=== PATIENT | male | born 1940 | race Caucasian/White ===

== ENCOUNTER 2019-10-19 00:32 | Outpatient (CLI) | payer MEDICARE, SELFPAY ==
[2019-10-19 18:00] LABS: SARS-CoV-2 RNA PCR Negative
== END 2019-10-19 00:33 | disposition home or self-care (01) ==
LOC: ANHCOVIDDT 00:32
PROVIDERS: PCP Emergency Medicine; Visit Provider Internal Medicine Cardiovascular Disease
DX: Z01.818 Encounter for other preprocedural examination (principal); Z11.59 Encounter for screening for other viral diseases
CPT/HCPCS: 87635; C9803; U0003

== ENCOUNTER 2019-10-22 05:07 | Day surgery (SDC) | payer MEDICARE, SELFPAY ==
[2019-10-18 12:35] VITALS: BMI 22.3
[2019-10-22 09:04] VITALS: BP 184/89; PULSE 56; RESP 14; TEMP 36.6; O2SAT 100; BMI 22.1
--- NOTE | 2019-10-22 09:12 | WPDHPUPDATE1 ---
History and Physical Update Update Date/Time: 10/22/19 09:12 History and Physical has been reviewed, including an updated exam of the patient. There are NO changes in the patient's condition. t says he had N&V after shoulder surgery 2nd the anesthetic, but is not allergic to novocaine or lidocaine that he is aware of. Risks, benefits, and alternatives have been discussed and questions answered. Patient agrees to proceed with procedure.
--- NOTE | 2019-10-22 09:13 | WPDMODSED ---
Moderate Sedation Note-Pt Data Patient Data Diagnosis: Recurrent near syncope Present Complaint: 79-year-old male with paros. atrial fibrillation, mild aortic stenosis, and recurrent near-syncope. Thirty day monitor was unrevealing but he had no symptoms during that time. I recommended the implantation of the loop recorder because of a high suspicion of Dejuan arrhythmias. Procedure to be performed/Plan: Insertion of a Biotronik loop recorder with local anesthesia. Allergies Allergy/AdvReac Type Severity Reaction Status Date / Time Anesthetics - Jeannie Type- Allergy Unknown Verified 10/18/19 11:41 Parabens prochlorperazine Allergy Nausea and Verified 10/18/19 11:41 Vomiting Home Medications Medication Instructions Recorded Confirmed Type hydrochlorothiazide 12.5 mg tablet 12.5 mg PO DAILY 06/10/19 10/18/19 History losartan 100 mg tablet 100 mg PO DAILY 06/10/19 10/18/19 History pravastatin 40 mg tablet 40 mg PO DAILY 06/10/19 10/18/19 History vit C 250 mg-E 200 unit-zinc 40 2 tablet PO BID 06/10/19 10/18/19 History mg-copper 1 tb-chdyzq-ujktih capsule warfarin 5 mg tablet 5 mg PO DIRECTED 06/10/19 10/18/19 History omeprazole 20 mg PO DAILY 10/18/19 10/18/19 History Sedation/Anesthesia: No previous sedation/anesthesia problems (including family history). [facility] Past Medical History Medical History Afib HLD (hyperlipidemia) Family History Family History Father Family history of cardiovascular disease, Onset Age: 73 Cerebrovascular accident, Onset Age: 73 Mother Family history of malignant neoplasm, Onset Age: 62 Social History Social History Smoking status: Former smoker Alcohol intake: never Gender identity (if verbalized by the patient): Male Mod Sed Physical Exam Physical Exam Pre Procedural Exam: Normal: Appearance, Eyes, Ears, Nose, Neck, Throat, Airway (mssing teeth), Lungs, Heart Size, Heart Rate (2/6 JOSE RAFAEL), Heart Rhythm, Neuro Exam, Abdomen, Liver and Skin Hours since solid foods: 12 Hours since liquid intake: 12 Internal Medicine - PN: Obj Da Vital Signs Vital Signs: Vital Signs - 24 hr 10/22/19 09:04 Temperature 97.9 F Pulse Rate 56 L Respiratory Rate 14 Blood Pressure 184/89 H Pulse Oximetry 100 ASA Classification/Sedation ASA Classification/Sedation ASA Class: II Risks: Risks, benefits and alternatives explained and patient/family accepted plan for sedation. Patient re-evaluated immediately prior to sedation.
--- NOTE | 2019-10-22 10:41 | ECG_ITS ---
Measurements Intervals [place] Rate: 60 P: 78 PA: 166 QRS: 30 QRSD: 101 T: 11 QT: 410 QTc: 411 Interpretive Statements SINUS RHYTHM ST ELEVATION IN DIFFUSE LEADS, PROBABLY EARLY REPOLARIZATION BASELINE ARTIFACT- II, III BORDERLINE ECG Electronically Signed On 10-22-2019 10:52:41 CDT by Rob Valencia D.O.
[2019-10-22 11:45] VITALS: BP 172/82; PULSE 56; RESP 16; O2SAT 100
--- NOTE | 2019-10-22 12:57 | PM.PROC ---
Procedure Note - Detailed Date of procedure: 10/22/19 Pre-op diagnosis: recurrent pre syncope Post-op diagnosis: same Procedure performed: Implantation of a Biotronik loop recorder Description of procedure: After informed consent, the patient had sterile prep and drape of the left pectoral area. Anesthesia with 1% lidocaine was applied. The Biotronik loop recorder was implanted along the left parasternal border without difficulty. The R-wave sensing was good at 1.54 mV. The skin was closed using skin adhesive. He tolerated the procedure well with no complications. Implants: Biotronik Biomonitor III loop recorder, serial number [id number] , left parasternal area. Anesthesia: local Surgeon: Mona Arndt MD Estimated blood loss (mL): 1 Drains: No Packing: No Pathology: none sent Complications: No immediate complications Condition: stable Disposition: same day Findings: Patient was in NSR today.
== END 2019-10-22 11:40 | disposition home or self-care (01) ==
PROVIDERS: PCP Emergency Medicine; Visit Provider Internal Medicine Cardiovascular Disease
PROC: (CPT 33285; principal; 2019-10-22 09:30)
DX: R55 Syncope and collapse (principal); I48.91 Unspecified atrial fibrillation; E78.5 Hyperlipidemia, unspecified; Z79.01 Long term (current) use of anticoagulants; Z87.891 Personal history of nicotine dependence
CPT/HCPCS: 33285; 93005; C1764

== ENCOUNTER 2020-02-07 13:29 | Outpatient (CLI) | payer MEDICARE, SELFPAY ==
--- NOTE | ~2020-02-07 | MR_ITS ---
EXAMINATION: MR shoulder RT wo con DATE: 02/07/2020 15:06 INDICATION: Scapula alata with posterior right shoulder pain and limited range of motion TECHNIQUE: Magnetic resonance imaging (MRI) of the right shoulder was performed without intravenous c ontrast. Sequences included axial PD-weighted FS FSE, coronal oblique PD-weighted FS FSE, coronal obl ique T2-weighted FS FSE, sagittal PD-weighted FS FSE, and sagittal T1-weighted SE. COMPARISON: Right shoulder radiographs dated 12/20/2019 FINDINGS: Coracoacromial arch: Interval postoperative changes of acromioplasty and distal right clavicle excision with scattered foc i of susceptibility artifact along the anterior margin of the acromion. Rotator cuff: Moderate supraspinatus and infraspinatus tendinopathy without discrete tear. The teres minor tendon i s normal. Partial-thickness articular sided tear of the subscapularis tendon involving the cephalad t wo thirds of the lesser tuberosity footplate. The bursal sided fibers remain intact and contiguous wi th the transverse humeral ligament. There appears be a near full-thickness tear involving the cephala d two thirds of the lesser tuberosity footplate of the subscapularis tendon. The bursal most fibers o f the tendon remain intact and contiguous with the transverse humeral ligament. This is likely chroni c in the severe atrophy of the subscapularis muscle belly which spares the caudal most portion of the muscle attaching directly to the inferior aspect of the lesser tuberosity. Also consistent with runner out mony tear is hypertrophic osteophyte formation along the tear defect at the lesser tuberosity. Remaini ng rotator cuff musculature is normal. Biceps tendon, glenoid labrum and glenohumeral cartilage: The long head of the biceps tendon can be followed to the cephalad aspect of the intertubercular groo ve with intra-articular portion of the tendon is absent consistent with provided surgical history of prior bicipital tenodesis. There is a tear of the 12:00 through 10:00 position of the posterior super ior glenoid labrum. There is additional tear along the inferior glenoid labrum. Partial-thickness car tilage loss with mild chondral surface regularity along the cephalad third of the glenoid and at the anterosuperior medial aspect of the humeral head. Fluid: Physiologic amount of fluid in the glenohumeral joint and biceps tendon sheath. No loose osteochondra l bodies. Trace amount of fluid in the subacromial/subdeltoid bursa consistent with normal bursitis. Bones/other: No fracture or pathologic marrow replacing process. Mild cystic change at the greater tuberosity like ly related to chronic rotator cuff disease. There is severe muscular atrophy of the teres major muscl e belly. There is also a focal small region of muscular atrophy of a portion of the trapezius muscle belly which extends towards the region of the acromion and resected portion of the clavicle which may represent sequela of prior acromioplasty and distal clavicle resection. No evident fatty atrophy of the visualized portions of the rhomboideus, levator scapulae and serratus anterior muscles. IMPRESSION: 1. Likely chronic near full-thickness tear involving the entire cephalad two thirds of the lesser tub erosity footplate of the subscapularis tendon with severe fatty atrophy of the subscapularis possibly excepting the portion with the direct muscular attachment to the inferior lesser tuberosity. 2. Moderate supraspinatus and infraspinatus tendinopathy without discrete tear. 3. 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 4. Postoperative change of prior acromioplasty, distal clavicle excision and long head bicipital teno desis. 5. Severe fatty atrophy of the teres major muscle belly of indeterminate etiology and focal fatty atr ophy of a small portion of the trapezius muscle extending towards the acromion and r
== END 2020-02-07 13:30 | disposition home or self-care (01) ==
PROVIDERS: PCP Emergency Medicine; Visit Provider Orthopaedic Surgery
DX: M95.8 Other specified acquired deformities of musculoskeletal system (principal); M19.011 Primary osteoarthritis, right shoulder
CPT/HCPCS: 73221

== ENCOUNTER 2021-02-13 18:04 | Emergency (ER) | payer MEDICARE, SELFPAY ==
[2021-02-13 18:22] VITALS: BP 118/90; PULSE 75; RESP 18; TEMP 36.3; O2SAT 98
--- NOTE | 2021-02-13 20:51 | ED.LOWEXIN ---
HPI - Extremity Injury (Lower) General Chief Complaint: Extremity Injury, Lower Stated Complaint: ankle swollen and pain Time Seen by Provider: 02/13/21 20:48 Source: patient Mode of arrival: wheelchair Limitations: no limitations History of Present Illness HPI Narrative: Patient is a 80-year-old male complaining of bilateral ankle and foot pain, chronic, but worse the past week, rates the pain as a 9 out of 10 aching worse with walking and movement. 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 Patient states that he just needs something for pain until he sees his area attendant on Monday where he usually gets injections in both of his ankles. Patient states that he tried to get in earlier but could not. Related Data Home Medications Medication Instructions Recorded Confirmed hydrochlorothiazide 12.5 mg tablet 12.5 mg PO DAILY 06/10/19 04/07/20 losartan 100 mg tablet 100 mg PO DAILY 06/10/19 04/07/20 pravastatin 40 mg tablet 40 mg PO DAILY 06/10/19 04/07/20 vit C 250 mg-vit E 90 mg-zinc 40 2 tablet PO BID 06/10/19 04/07/20 mg-copper 1 ui-pyurbd-oszzri capsule omeprazole 20 mg PO DAILY 10/18/19 04/07/20 Allergies Allergy/AdvReac Type Severity Reaction Status Date / Time Anesthetics - Jeannie Type- Allergy Unknown Verified 02/13/21 21:15 Parabens prochlorperazine AdvReac Nausea and Verified 02/13/21 21:15 Vomiting Review of Systems Review of Systems: All systems reviewed & are unremarkable except as noted in HPI and below PMFSH Past Medical History Medical History Afib Calf tenderness Cellulitis HLD (hyperlipidemia) Leg wound, left Surgical History Surgical History History of cardiac radiofrequency ablation History of repair of right rotator cuff (~11/30/09) Family History Family History Father Family history of cardiovascular disease, Onset Age: 73 Cerebrovascular accident, Onset Age: 73 Mother Family history of malignant neoplasm, Onset Age: 62 Social History Social History Smoking status: Former smoker Alcohol intake: never Gender identity (if verbalized by the patient): Male Exam Const: General: no acute distress and alert HENMT: Head: normal to inspection Eyes: Conjunctivae: conjunctivae normal Neck: Neck: normal visual inspection Resp: Effort & Inspection: normal respiratory effort Extrem: General: edema (Bilateral lower extremity, pitting edema) Course Vital Signs Vital signs: Vital Signs Temperature 36.3 C L 02/13/21 18:22 Pulse Rate 75 02/13/21 18:22 Respiratory Rate 18 02/13/21 18:22 Blood Pressure 118/90 02/13/21 18:22 Pulse Oximetry 98 02/13/21 18:22 Temperature 36.3 C L 02/13/21 18:22 Pulse Rate 75 02/13/21 18:22 Respiratory Rate 18 02/13/21 18:22 Blood Pressure 118/90 02/13/21 18:22 Pulse Oximetry 98 02/13/21 18:22 Discharge Plan Discharge Clinical Impression: Chronic ankle pain, bilateral Patient Disposition: Home, Self-Care Condition: Stable Instructions: Arthralgia (ED) Additional Instructions: Follow-up with your area attendant on your scheduled appointment on Monday Prescriptions: New hydrocodone-acetaminophen 5-325 mg tablet 1 tablet PO Q8H PRN (Reason: pain) Qty: 4 RF: 0 No Action pravastatin 40 mg tablet 40 mg PO DAILY RF: 0 hydrochlorothiazide 12.5 mg tablet 12.5 mg PO DAILY RF: 0 losartan 100 mg tablet 100 mg PO DAILY RF: 0 PreserVision AREDS-2 [id number] yi-newk-eo-mg capsule 2 tablet PO BID RF: 0 warfarin 5 mg tablet 5 mg PO DIRECTED Qty: 90 RF: 1 Hold Instructions: Resume on 10/25/19. RESTART warfarin on Monday, October 25, 2019
[2021-02-13] MEDS: HYDROcodone/acetaminophen (*CRX) 7.5-325 MG TABLET 1 TAB PO (21:16)
[2021-02-13 22:07] VITALS: BP 162/87; PULSE 86; RESP 18; TEMP 36.8; O2SAT 99
== END 2021-02-13 22:09 | disposition home or self-care (01) ==
PROVIDERS: Emergency Provider Emergency Medicine; PCP Emergency Medicine
DX: M25.572 Pain in left ankle and joints of left foot (principal); M25.571 Pain in right ankle and joints of right foot; G89.29 Other chronic pain; I48.91 Unspecified atrial fibrillation; E78.5 Hyperlipidemia, unspecified
CPT/HCPCS: 99283; A9270

== ENCOUNTER 2021-09-03 10:54 | Outpatient (CLI) | payer MEDICARE, SELFPAY ==
--- NOTE | ~2021-09-03 | US_ITS ---
EXAMINATION: US carotid duplex BI DATE: 09/03/2021 11:32 INDICATION: Near syncope. Bilateral carotid bruits. TECHNIQUE: Grayscale, color Doppler, and pulsed Doppler images of the cervical carotid arteries were obtained. The degree of vessel stenosis is placed in one of the following categories: normal, <50%, 5 0-69%, >=70% but less than near-occlusion, near-occlusion, or total occlusion. Note that percent sten osis relative to normal distal artery lumen diameter is indirectly measured from velocity measurement s as described by Romain, et al. Radiology 2003; 229:340-346. COMPARISON: Ultrasound carotid 02/27/2019 FINDINGS: RIGHT: The right common carotid artery (CCA) peak systolic velocity (PSV) is 78 cm/s. The right internal car otid artery (ICA) PSV is 51 cm/s. The right ICA end-diastolic velocity (EDV) is 17 cm/s. The right IC A/CCA PSV ratio is 0.6. Grayscale and color Doppler images yield an estimate of <50% diameter reducti on from plaque in the ICA. There is antegrade flow in the right vertebral artery. LEFT: The left CCA PSV is 64 cm/s. The left ICA PSV is 64 cm/s. The left ICA EDV is 17 cm/s. The left ICA/C CA PSV ratio is 1.0. Grayscale and color Doppler images yield an estimate of <50% diameter reduction from plaque in the ICA. There is antegrade flow in the left vertebral artery. IMPRESSION: 1. <50% stenosis in the right internal carotid artery. 2. <50% stenosis in the left internal carotid artery. Reviewed, dictated and finalized at location A.
== END 2021-09-03 10:55 | disposition home or self-care (01) ==
PROVIDERS: PCP Emergency Medicine; Visit Provider Internal Medicine Cardiovascular Disease
DX: R55 Syncope and collapse (principal); R09.89 Other specified symptoms and signs involving the circulatory and respiratory systems; I65.23 Occlusion and stenosis of bilateral carotid arteries
CPT/HCPCS: 93880

== ENCOUNTER 2022-07-12 15:42 | Outpatient (CLI) | payer MEDICARE, SELFPAY ==
[2022-07-12 16:31] LABS: Anion Gap 2 mmol/L (8-16); Blood Urea Nitrogen 15 mg/dL (9-20); Calcium 8.6 mg/dL (8.4-10.2); Carbon Dioxide 30 mmol/L (22-30); Chloride 101 mmol/L (98-107); Estimated Glomerular Filt Rate > 60; Glucose 83 mg/dL (65-110); Potassium 4.2 mmol/L (3.4-5.0); Sodium 133 mmol/L (137-145)
== END 2022-07-12 15:43 | disposition home or self-care (01) ==
PROVIDERS: PCP Emergency Medicine; Visit Provider Nurse Practitioner Adult Health
DX: I10 Essential (primary) hypertension (principal)
CPT/HCPCS: 36415; 80048

== ENCOUNTER 2022-07-29 08:58 | Outpatient (CLI) | payer MEDICARE, SELFPAY ==
[2022-07-29 09:50] LABS: Anion Gap 4 mmol/L (8-16); Blood Urea Nitrogen 15 mg/dL (9-20); Carbon Dioxide 30 mmol/L (22-30); Chloride 104 mmol/L (98-107); Estimated Glomerular Filt Rate > 60; Glucose 66 mg/dL (65-110); Potassium 4.2 mmol/L (3.4-5.0); Sodium 138 mmol/L (137-145)
== END 2022-07-29 08:59 | disposition home or self-care (01) ==
PROVIDERS: PCP Emergency Medicine; Visit Provider Nurse Practitioner Adult Health
DX: I10 Essential (primary) hypertension (principal)
CPT/HCPCS: 36415; 80048

== ENCOUNTER 2023-01-06 15:24 | Outpatient (CLI) | payer MEDICARE, SELFPAY ==
--- NOTE | ~2023-01-06 | XR_ITS ---
EXAMINATION: XR ribs LT 2V INDICATION: Pleurodynia TECHNIQUE: 3 views of the left ribs were obtained. COMPARISON: 08/23/2017 FINDINGS: The bones are osteopenic which limits the sensitivity for fracture. There is a questionable lateral fracture of the left 10th rib.. There is mild atelectasis of the left lung base. A dual-lead cardiac pacemaker of the left chest wall ends with leads in expected locations. The heart size is no rmal. IMPRESSION: 1. Possible nondisplaced left 10th rib fracture. Reviewed, dictated and finalized at location B.
== END 2023-01-06 15:25 | disposition home or self-care (01) ==
PROVIDERS: PCP Emergency Medicine; Visit Provider Emergency Medicine
DX: R07.81 Pleurodynia (principal)
CPT/HCPCS: 71100

== ENCOUNTER 2023-06-09 14:55 | Outpatient (CLI) | payer MEDICARE, SELFPAY ==
--- NOTE | ~2023-06-09 | CT_ITS ---
CT Scan of the Chest without Contrast: Clinical Indication: Abnormal chest MRI Technique: Contiguous sections were acquired throughout the chest without intravenous contrast. Dose reduction technique was used on this scan by utilizing automated exposure control and iterative recon struction technique. The dose-length product (DLP) was 217.84 mGy-cm. Findings: There is no evidence of any significant mediastinal, hilar or axillary lymphadenopathy. There are ath erosclerotic ossifications aorta. Ascending aorta measures up to 4 cm in maximum diameter. Coronary a rtery calcifications are present. Pacemaker device in place. There is no evidence of pleural or pericardial effusion. Several tiny subcentimeter scattered pulmonary nodules are present. Calcified left upper lobe granulo ma present. There is probable focal scarring at the right lung base. Images through the upper abdomen reveal no abnormalities. Impression: Several scattered subcentimeter pulmonary nodules. According to Fleischner Society criteria, for a lo w-risk patient, no further follow-up required. For a high-risk patient, consider 12 month follow-up C T. Probable scarring at the right lung base. Reviewed, dictated and finalized at location . ULER Impression: Several scattered subcentimeter pulmonary nodules. According to Fleischner Soci ety criteria, for a low-risk patient, no further follow-up required. For a high -risk patient, consider 12 month follow-up CT. Probable scarring at the right lung base.
== END 2023-06-09 14:56 | disposition home or self-care (01) ==
PROVIDERS: PCP Emergency Medicine; Visit Provider Nurse Practitioner Adult Health
DX: R93.89 Abnormal findings on diagnostic imaging of other specified body structures (principal)
CPT/HCPCS: 71250

== ENCOUNTER 2023-10-22 12:24 | Inpatient (IN) | payer MEDICARE, SELFPAY ==
[2023-10-22] VITALS (12 sets, daily range): BP systolic 112–168; BP diastolic 46–84; PULSE 72–107; RESP 12–18; TEMP 36.1–36.4; O2SAT 98–100; BMI 24.2
--- NOTE | 2023-10-22 12:28 | ECG_ITS ---
[facility] [address] Test Date: 2023-10-22 Pat Name: Lis Barrera Department: Room: Gender: M Registered Diet Technician: : 1940 Requested By: Filippo Townsend Order Number: [id number] Lawson MD: Mikey Farah M.D. Measurements Intervals [place] Rate: 80 P: 79 MS: 151 QRS: 53 QRSD: 106 T: 39 QT: 371 QTc: 430 Interpretive Statements SINUS RHYTHM WITHIN NORMAL LIMITS No previous ECG available for comparison Electronically Signed On 10-23-2023 07:16:49 CDT by Mikey Farah M.D.
--- NOTE | 2023-10-22 12:42 | ED.DIZZY ---
HPI - Dizziness General Chief Complaint: Dizziness <Filippo Townsend MD - Last Filed: 10/22/23 12:57> Stated Complaint: dizziness <Filippo Townsend MD - Last Filed: 10/22/23 12:57> Time Seen by Provider: 10/22/23 12:35 <Filippo Townsend MD - Last Filed: 10/22/23 12:57> Source: patient and family <Filippo Townsend MD - Last Filed: 10/22/23 12:57> Mode of arrival: ambulatory <Filippo Townsend MD - Last Filed: 10/22/23 12:57> Limitations: no limitations <Filippo Townsend MD - Last Filed: 10/22/23 12:57> History of Present Illness HPI Narrative: 83-year-old with a history of AF on warfarin, here with the complaints of dizziness since this morning. Patient states that he threw up couple times soon after he go to the ER he started vomiting blood. He denies any chest pain or abdominal pain . <Filippo Townsend MD - Last Filed: 10/22/23 12:57> MD elicited complaint: dizziness <Filippo Townsend MD - Last Filed: 10/22/23 12:57> Onset (ago): day(s) (1) <Filippo Townsend MD - Last Filed: 10/22/23 12:57> Severity: moderate <Filippo Townsend MD - Last Filed: 10/22/23 12:57> Description: lightheadedness <Filippo Townsend MD - Last Filed: 10/22/23 12:57> Exacerbating factors: nothing <MD Jovita Moya Last Filed: 10/22/23 12:57> Relieving factors: nothing <MD Jovita Moya Last Filed: 10/22/23 12:57> Associated symptoms: nausea and vomiting <MD Jovita Moya Last Filed: 10/22/23 12:57> Related Data Home Medications: Home Medications Medication Instructions Recorded Confirmed losartan 100 mg tablet 100 mg PO DAILY 06/10/19 07/04/23 pravastatin 40 mg tablet 40 mg PO DAILY 06/10/19 07/04/23 vit C 250 mg-vit E 90 mg-zinc 40 2 tablet PO BID 06/10/19 07/04/23 mg-copper 1 dm-hjvsxm-ihhaxg capsule (PreserVision AREDS-2) omeprazole 20 mg capsule,delayed 20 mg PO DAILY 10/18/19 07/04/23 release amlodipine 5 mg tablet 5 mg PO DAILY 08/17/22 07/04/23 <Filippo Townsend MD - Last Filed: 10/22/23 12:57> Allergies/Adverse Reactions: Allergies Allergy/AdvReac Type Severity Reaction Status Date / Time Anesthetics - Jeannie Type- Allergy Unknown Verified 07/04/23 10:24 Parabens prochlorperazine AdvReac Nausea and Verified 07/04/23 10:24 Vomiting <Filippo Townsend MD - Last Filed: 10/22/23 12:57> Review of Systems Review of Systems: All systems reviewed & are unremarkable except as noted in HPI and below <Filippo Townsend MD - Last Filed: 10/22/23 12:57> Constitutional: Constitutional: Reports no additional constitutional complaints <Filippo Townsend MD - Last Filed: 10/22/23 12:57> Eyes: Eyes: Reports no additional eye complaints <Filippo Townsend MD - Last Filed: 10/22/23 12:57> ENT: Reports system reviewed and no additional complaints, except as documented <Filippo Townsend MD - Last Filed: 10/22/23 12:57> Cardiovascular: Cardiovascular: Reports no additional cardiovascular complaints <Filippo Townsend MD - Last Filed: 10/22/23 12:57> Respiratory: Respiratory: Reports no additional respiratory complaints <Filippo Townsend MD - Last Filed: 10/22/23 12:57> Gastrointestinal: Gastrointestinal: Reports no additional gastrointestinal complaints <Filippo Townsend MD - Last Filed: 10/22/23 12:57> Musculoskeletal: Musculoskeletal: Reports no additional musculoskeletal complaints <Filippo Townsend MD - Last Filed: 10/22/23 12:57> Neurologic: Reports system reviewed and no additional complaints, except as documented <Filippo Townsend MD - Last Filed: 10/22/23 12:57> PMFSH Past Medical History Medical History: Medical History (Updated 10/22/23 @ 15:17 by Ximena Vigil PA-C) Aortic stenosis Arthritis Benign prostatic hyperplasia Cellulitis Chronic anticoagulation Gastroesophageal reflux disease Hyperlipidemia Hypertension Paroxysmal atrial fibrillation Paroxysmal atrial flutter <Filippo Townsend MD
--- NOTE | 2023-10-22 12:52 | PC.NURSE ---
Patient became dizzy, diaphoretic, and nauseous during orthostatic vital signs. when patient assisted back to bed, patient started having hematemesis. MD morgan to bedside to assess patient at this time.
[2023-10-22 12:55] LABS: Basophils Absolute Auto 0.1 K/mm3 (0.0-0.1); Basophils Percent Auto 0.4 % (0.2-1.2); Eosinophils Percent Auto 0.3 % (0-4.4); Hematocrit 23.7 % (42.0-52.0); Hemoglobin 7.2 g/dL (14.0-18.0); Immature Granulocyte Absolute 0.09 K/mm3 (0.00-0.031); Immature Granulocyte Percent A 0.8 % (0-0.5); Lymphocytes Absolute Auto 2.28 K/mm3 (0.9-3.2); Lymphocytes Percent Auto 19.2 % (18.3-44.2); Mean Corpuscular HGB Conc 30.4 g/dl (32-36); Mean Corpuscular Hemoglobin 27.9 pg (26-34); Mean Corpuscular Volume 91.9 fl (80-100); Mean Platelet Volume 9.8 fl (7.4-10.4); Monocytes Absolute Auto 0.8 K/mm3 (0.1-0.6); Monocytes Percent Auto 7.1 % (2.6-8.5); Neutrophils Absolute Auto 8.6 K/mm3 (1.3-6.7); Neutrophils Percent Auto 72.2 % (45.5-73.1); Platelet Count Result 311 k/mm3 (150-375); Red Blood Count 2.58 M/mm3 (4.6-6.20); Red Cell Distribution Width 14.8 % (11.5-14.5); White Blood Count 11.9 K/mm3 (4.5-10.0)
[2023-10-22] MEDS: PANTOPRAZOLE SODIUM IV 40 MG VIAL 80 MG IV PUSH (12:57)
[2023-10-22] MEDS: SODIUM CHLORIDE 0.9% IV 1,000 ML 999 ML IV CONT (12:58)
[2023-10-22] MEDS: ONDANSETRON INJ 4 MG/2 ML VIAL IV PUSH (12:58)
--- NOTE | 2023-10-22 13:00 | PC.NURSE ---
Pt takes warfarin, has had bloody emesis during orthostatics, patient while laying down was found to be in Normal Sinus but when patient stood up he began having frequent PVCs
[2023-10-22 13:06] LABS: Lactic Acid Reflex 2.8 mmol/L (0.7-2.0)
[2023-10-22 13:07] LABS: Alanine Aminotransferase 35 U/L (6-50); Albumin Level 3.3 g/dL (3.5-5.1); Alkaline Phosphatase 81 U/L (38-126); Anion Gap 4 mmol/L (4-12); Aspartate Amino Transferase 35 U/L (17-59); Bilirubin,Total 0.3 mg/dL (0.2-1.3); Blood Urea Nitrogen 40 mg/dL (9-20); Calcium 8.6 mg/dL (8.4-10.2); Carbon Dioxide 22 mmol/L (22-30); Chloride 111 mmol/L (98-107); Estimated CRCL calculation 63 ml/min; Estimated Glomerular Filt Rate > 60; Glucose 133 mg/dL (65-110); Lipase 76 U/L (23-300); Potassium 4.7 mmol/L (3.4-5.0); Sodium 137 mmol/L (137-145)
[2023-10-22 13:09] LABS: INR 2.6; Prothrombin Time 27.7 Seconds (11.1-14.7)
[2023-10-22 13:19] LABS: Troponin I < 0.012 ng/mL (0.000-0.034)
--- NOTE | 2023-10-22 15:08 | PM.IMHP ---
H&P: HPI History of Present Illness Date/Time: 10/22/23 16:00 Chief Complaint: Dizziness, nausea, and vomiting. Narrative: This is a very pleasant 83-year-old male with history of atrial arrhythmias status post ablation for atrial fibrillation with paroxysmal atrial flutter thereafter on chronic anticoagulation, longstanding history of dizziness and near-syncope status post loop recorder implantation, aortic stenosis, hypertension, hyperlipidemia, gastroesophageal reflux disease, and benign prostatic hyperplasia who presented to the emergency department for evaluation of dizziness, nausea, and vomiting. The patient provides the following history. He was in his usual state of health when he went to bed last night. Upon waking this morning at about 07:00 he was feeling lightheaded, dizzy, and nauseated. The nausea became so severe that he attempted to induce emesis without success. Shortly after arrival to the ED he had an episode of emesis which was described as dark red in nature and he felt quite a bit better thereafter. He had another episode of hematemesis just before he was brought up to the floor. With further questioning he mentions that his GERD is well controlled on omeprazole and he has not noticed a change in symptoms recently. He is on warfarin. He does not take aspirin denies NSAID use. He denies epigastric and abdominal pain, bloating, belching, melena, and hematochezia. He also denies syncope, near syncope, nosebleeds, cough, chest pain, and shortness of breath. In the ED: He is afebrile with stable vital signs. Labs were significant for a WBC count of 11.9, hemoglobin 7.2, hematocrit 23.7%, platelet 311, INR 2.6, BUN 40, creatinine 0.80, lactic acid 2.8, troponin less than 0.012, total protein 6.0, albumin 3.3. EKG showed sinus rhythm with normal axis and no ST segment changes. He received a normal saline bolus, Zofran, and 80 mg IV pantoprazole and he is being admitted in this setting for close monitoring and GI consult. Review of Systems Review of Systems: 12 systems were reviewed and are negative except for as per HPI. [facility] Past Medical History Medical History Aortic stenosis Arthritis Benign prostatic hyperplasia Cellulitis Chronic anticoagulation Gastroesophageal reflux disease Hyperlipidemia Hypertension Paroxysmal atrial fibrillation Paroxysmal atrial flutter Surgical History Surgical History History of cardiac radiofrequency ablation Atrial flutter ablation 2006. Atrial fibrillation ablation in May 2011. History of loop recorder History of permanent cardiac pacemaker placement History of repair of right rotator cuff (11/30/09) Family History Family History Father Family history of cardiovascular disease, Onset Age: 73 Cerebrovascular accident, Onset Age: 73 Mother Family history of malignant neoplasm, Onset Age: 62 Social History Social History (Updated 10/22/23 @ 21:50 by Ximena Vigil PA-C) Social History: Surrogate medical decision maker: Nyasia Barrera, spouse. Code status: Full code. Smoking status: Former smoker Alcohol intake: never Substance use: never Substance use type: does not use Do You Feel Safe in your Home?: Yes Lack of Transportation: No Lack of Food: Never True Current Housing: Decline to Answer Concerned About Future Housing: Decline to Answer Difficulty Paying Gas/Electric Bills: Decline to Answer Difficulty Paying for Meds: Decline to Answer Currently Unemployed: Decline to Answer Education: Decline to Answer Difficulty w/ Childcare or Family Care: Decline to Answer Additional living arrangements comments: Lives with spouse in [place]. 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 Spiritual care concerns:
[2023-10-22 15:53] LABS: Reflex Lactic Acid Yes or No Add Lactic
--- NOTE | 2023-10-22 16:31 | ADMGEN ---
This patient, Lis Barrera, was admitted to Medical Room 246-01. Patient/family oriented to hospital policies and general routines including ID bracelet, bed and alarms, visiting hours, pain management, procedures, bathroom and other care routines, personal items, smoking policy, room service/diet, and visiting hours. Information on how to activate the Rapid Response Team has been discussed. Patient/Family are encouraged to report perceived risks to care and to ask questions if they do not understand what they are told or what they should do.
[2023-10-22 16:57] LABS: Hematocrit 23.1 % (42.0-52.0)
[2023-10-22 16:59] LABS: Hemoglobin 6.9 g/dL (14.0-18.0)
[2023-10-22 17:08] LABS: Lactic Acid 2.4 mmol/L (0.7-2.0)
[2023-10-22 17:10] LABS: Lactic Acid Reflex 2.5 mmol/L (0.7-2.0)
[2023-10-22 17:22] LABS: Iron 65 ug/dL (49-181); Percent Iron Saturation 17 % (20-50)
[2023-10-22] MEDS: PHYTONADIONE ADULT INJ 10 MG in DEXTROSE 5% IN WATER 50 ML 100 MG IVPB (17:28)
[2023-10-22 17:40] LABS: Thyroid Stimulating Hormone Reflex 0.367 uIU/mL (0.465-4.68)
[2023-10-22] MEDS: SODIUM CHLORIDE 0.9% IV 250 ML 30 ML IV CONT (18:04)
[2023-10-22 22:04] LABS: Free T4 Free Thyroxine Reflex 0.81 ng/dL (0.78-2.19)
[2023-10-22 23:57] LABS: Total Triiodothyronine (T3) 1.13 NG/ML (0.97-1.69)
[2023-10-23] VITALS (16 sets, daily range): BP systolic 100–165; BP diastolic 49–80; PULSE 63–74; RESP 18; TEMP 36.2–36.7; O2SAT 99–100
[2023-10-23 03:29] LABS: Hematocrit 27.5 % (42.0-52.0); Hemoglobin 8.6 g/dL (14.0-18.0); Mean Corpuscular HGB Conc 31.3 g/dl (32-36); Mean Corpuscular Hemoglobin 28.5 pg (26-34); Mean Corpuscular Volume 91.1 fl (80-100); Mean Platelet Volume 9.8 fl (7.4-10.4); Platelet Count Result 256 k/mm3 (150-375); Red Blood Count 3.02 M/mm3 (4.6-6.20); Red Cell Distribution Width 14.7 % (11.5-14.5); White Blood Count 12.4 K/mm3 (4.5-10.0)
[2023-10-23 03:40] LABS: INR 1.6; Prothrombin Time 19.5 Seconds (11.1-14.7)
[2023-10-23 04:00] LABS: Anion Gap 3 mmol/L (4-12); Blood Urea Nitrogen 35 mg/dL (9-20); Calcium 8.4 mg/dL (8.4-10.2); Carbon Dioxide 23 mmol/L (22-30); Chloride 113 mmol/L (98-107); Estimated CRCL calculation 63 ml/min; Estimated Glomerular Filt Rate > 60; Glucose 99 mg/dL (65-110); Magnesium 2.1 mg/dL (1.6-2.3); Sodium 139 mmol/L (137-145)
--- NOTE | 2023-10-23 08:12 | P.CONGI_ITS ---
I, Alvin Heller MD, have provided a substantive portion of the care of this patient and discussed the patient with my Nurse Practitioner. I have reviewed any new relevant radiographic and laboratory results including medications. I agree with her documentation as noted below.?I personally performed the medical decision making and much of the history and exam for this encounter. briefly he has Afib on coumadin here with new onset of hematemesis, hgb 6.9, bun 40 and elevated lactic acid, inr 2.5 and received vitamin k then inr down to 1.6, received blood transfusion with no more bleeding, CT scan with diverticulosis, started on iv protonix and npo, we will proceed with urgent egd. Last colonoscopy 2015 Assessment and Plan Assessment and plan (1) Nausea and vomiting: Qualifiers: Vomiting type: hematemesis Qualified Code(s): K92.0 - Hematemesis Code(s): R11.2 - Nausea with vomiting, unspecified Status: Acute (2) ABLA (acute blood loss anemia): Code(s): D62 - Acute posthemorrhagic anemia Status: Acute (3) Gastroesophageal reflux disease: Qualifiers: Esophagitis presence: esophagitis presence not specified Qualified Code(s): K21.9 - Gastro-esophageal reflux disease without esophagitis Code(s): K21.9 - Gastro-esophageal reflux disease without esophagitis Status: Acute Plan 1) Nausea/vomiting/hematemesis/GERD: Patient has never had an EGD. Patient with pacemaker and loop recorder. 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 Patient presented to the ER with complaints of dizziness, nausea, and vomiting. In the ER he had an episode of dark red emesis. Denies any GI symptoms at this time. Denies any PO intake since Monday. [employer] MAINTE[employer] was on omeprazole 20 mg daily and reflux was well controlled. denies any NSAID use prior to admission. Currently on Protonix 40 mg IV BID. * Keep patient NPO * EGD today * Continue BID PPI * Care with NSAID's, aspirin and anticoags * Further recs to follow endoscopy 2) ABLA: No prior EGD history. Last colonoscopy July 2015 showed internal hemorrhoids but was otherwise unremarkable. On admission Hgb @ 7.2 and after 2 units of PRBC's labs today show Hgb 9, Hct 28, MCV 91 and platelets 256. Iron 65, TIBC 393, iron sat 17%, ferritin 14, B12 236, folate 17. One time episode of dark red emesis noted in ER but no current signs of active GI bleeding to include hematemesis, hematochezia, or melena. * Primary care team to continue monitoring H&H and transfuse as needed to keep HGB >7 * plan for EGD today * if EGD is unremarkable may consider outpatient colonoscopy to rule out other GI sources of blood loss Thank you very much for allowing me to share in the care of this very nice patient. This report may have been done utilizing a voice recognition system. Attempts have been made to correct errors. However, there may be uncorrected grammatical, spelling, and recognition errors present. GI Consult Note Consult date/time: 10/23/23 08:12 HPI: Lis Wilhelm Cara Barrera is a 83 year old male with past medical surgical Hx of atrial arrhythmias status post ablation for atrial fibrillation with paroxysmal atrial flutter thereafter on chronic anticoagulation, longstanding history of dizziness and near-syncope status post loop recorder implantation, pacemaker, aortic stenosis, HTN, HLD, GERD, and BPH. Patient states that yesterday he he had an acute onset of nausea and vomiting. Patient states that his symptoms nearly resolved after he had dark red emesis in the ER. He was on omeprazole 20 mg daily
--- NOTE | 2023-10-23 08:12 | WPDGICN ---
Assessment and Plan Assessment and plan (1) Nausea and vomiting: Qualifiers: Vomiting type: hematemesis Qualified Code(s): K92.0 - Hematemesis Code(s): R11.2 - Nausea with vomiting, unspecified Status: Acute (2) ABLA (acute blood loss anemia): Code(s): D62 - Acute posthemorrhagic anemia Status: Acute (3) Gastroesophageal reflux disease: Qualifiers: Esophagitis presence: esophagitis presence not specified Qualified Code(s): K21.9 - Gastro-esophageal reflux disease without esophagitis Code(s): K21.9 - Gastro-esophageal reflux disease without esophagitis Status: Acute Plan 1) Nausea/vomiting/hematemesis/GERD: Patient has never had an EGD. Patient with pacemaker and loop recorder. 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 Patient presented to the ER with complaints of dizziness, nausea, and vomiting. In the ER he had an episode of dark red emesis. Denies any GI symptoms at this time. Denies any PO intake since Monday. 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 denies any NSAID use prior to admission. Currently on Protonix 40 mg IV BID. Keep patient NPO EGD today Continue BID PPI Care with NSAID's, aspirin and anticoags Further recs to follow endoscopy 2) ABLA: No prior EGD history. Last colonoscopy July 2015 showed internal hemorrhoids but was otherwise unremarkable. On admission Hgb @ 7.2 and after 2 units of PRBC's labs today show Hgb 9, Hct 28, MCV 91 and platelets 256. Iron 65, TIBC 393, iron sat 17%, ferritin 14, B12 236, folate 17. One time episode of dark red emesis noted in ER but no current signs of active GI bleeding to include hematemesis, hematochezia, or melena. Primary care team to continue monitoring H&H and transfuse as needed to keep HGB >7 plan for EGD today if EGD is unremarkable may consider outpatient colonoscopy to rule out other GI sources of blood loss Thank you very much for allowing me to share in the care of this very nice patient. This report may have been done utilizing a voice recognition system. Attempts have been made to correct errors. However, there may be uncorrected grammatical, spelling, and recognition errors present. GI Consult Note Consult date/time: 10/23/23 08:12 HPI: Lis Barrera is a 83 year old male with past medical surgical Hx of atrial arrhythmias status post ablation for atrial fibrillation with paroxysmal atrial flutter thereafter on chronic anticoagulation, longstanding history of dizziness and near-syncope status post loop recorder implantation, pacemaker, aortic stenosis, HTN, HLD, GERD, and BPH. Patient states that yesterday he he had an acute onset of nausea and vomiting. Patient states that his symptoms nearly resolved after he had dark red emesis in the ER. He was on omeprazole 20 mg daily prior to admission and states that his reflux was controlled. He does admit to a decreased appetite but denies any abdominal pain, bloating, odynophagia, dysphagia, reflux, regurgitation, early satiety, or unexplained weight loss. Patient states he has had no p.o. intake since Monday. He is having regular daily bowel movements that are formed and not urgent prior to admission, no BM since admission. Denies diarrhea, constipation, hematochezia, or melena. ENDOSCOPY HISTORY: EGD: Patient has never had an EGD COLONOSCOPY: 07/21/2015 (Dr. Monsivais) internal hemorrhoids o/w normal 10 year repeat recommended IMAGING: Chest CT 06/12/2023 Impression: Several scattered subcentimeter pulmonary nodules. According to Fleischner Society criteria, for a low-risk patient, no further follow-up required. For a high-risk patient, consider 12 month follow-up CT. Probable scarring at the right lung base. CT abd/pelvis w/contrast 05/08/2021 Fatty liver with stable left lobe liver cyst. Benign right and lef
[2023-10-23] MEDS: amLODIPine BESYLATE 5 MG TABLET PO (08:28)
[2023-10-23] MEDS: LOSARTAN POTASSIUM 100 MG TABLET PO (08:29)
[2023-10-23] MEDS: PANTOPRAZOLE SODIUM IV 40 MG VIAL IV PUSH ×2 (08:29→20:05)
[2023-10-23] MEDS: OPTI-GEN TAB 1 TABLET PO ×2 (08:29→17:02)
[2023-10-23] MEDS: TAMSULOSIN HCL 0.4 MG CAPSULE BY MOUTH (08:29)
[2023-10-23] MEDS: PRAVASTATIN SODIUM 20 MG TABLET 40 MG PO (08:29)
--- NOTE | 2023-10-23 08:35 | PM.IMPN ---
Progress Note: A&P Assessment and Plan (1) Upper GI bleed: Code(s): K92.2 - Gastrointestinal hemorrhage, unspecified Status: Acute (2) Normocytic anemia: Code(s): D64.9 - Anemia, unspecified Status: Acute (3) Chronic anticoagulation: Code(s): Z79.01 - shelter (current) use of anticoagulants Status: Acute (4) Gastroesophageal reflux disease: Code(s): K21.9 - Gastro-esophageal reflux disease without esophagitis Status: Acute (5) Hypertension: Qualifiers: Hypertension type: essential hypertension Qualified Code(s): I10 - Essential (primary) hypertension Code(s): I10 - Essential (primary) hypertension Status: Acute (6) Benign prostatic hyperplasia: Code(s): N40.0 - Benign prostatic hyperplasia without lower urinary tract symptoms Status: Acute (7) Paroxysmal atrial flutter: Code(s): I48.92 - Unspecified atrial flutter Status: Acute Plan The patient presented to the emergency department for evaluation of dizziness, nausea, and vomiting upon waking in the morning. Since arrival to the hospital he has had 2 episodes of hematemesis described as dark red in color. Repeat hemoglobin is now under 7 g and he will be transfused 2 units of packed red blood cells. INR is 2.6 and given ongoing hematemesis he will be given vitamin K 10 mg x 1. Continue pantoprazole. acute GI bleeding Patient had a nausea vomiting and bloody emesis Patient also has the chloride stool Continue Protonix IV Keep patient p.o. INR 2.5, received vitamin K 10 mg IM 1x Consult GI for evaluation treatment acute on blood-loss anemia hemoglobin 7.2, 2nd test hemoglobin 6.9, received 2 pack RBC Suspecting from GI bleeding Follow-up iron panel paroxysmal AFib Current patient has a sinus rhythm Hold warfarin because of active bleeding, resume warfarin when it is okay for GI uncontrolled hypertension Continue amlodipine 5 mg daily p.o. leukocytosis and lactic acidosis Likely due to the GI bleeding and hypoperfusion CT shows no pneumonia Follow urinalysis Patient is afebrile hold antibiotics now patient may stay more than 2 midnights in the hospital Subjective Date/time seen: 10/23/23 08:35 Interval history: I saw exam patient today, patient feels better, denies nausea vomiting lightheadedness, short of breath. Hemoglobin stable after receiving transfusion Exam Narrative: GENERAL: Pleasant, in no acute distress. Well-nourished. - EYES: EOMI. Anicteric. - HENT: Moist mucous membranes. - LUNGS: Clear to auscultation bilaterally, no wheezing, rhonchi, or rales. - CARDIOVASCULAR: Regular rate and rhythm. No murmur. No JVD. - ABDOMEN: Soft, non-tender and non-distended. No palpable masses. - EXTREMITIES: No edema. Peripheral pulses 2+. Non-tender. - NEUROLOGIC: No focal neurological deficits. CN II-XII grossly intact. general weakness - PSYCHIATRIC: Awake, Alert and oriented x 3. Appropriate mood and affect. - SKIN: No rashes or lesions. Warm. - LYMPH: No cervical lymphadenopathy. Objective Data Vital Signs Vital Signs: Vital Signs - 24 hr 10/22/23 12:28 10/22/23 12:34 10/22/23 12:34 Temperature 97.5 F L Pulse Rate 87 72 89 Respiratory Rate 17 Blood Pressure 157/77 H 157/77 H 146/78 H Pulse Oximetry 100 Oxygen Delivery Room Air 10/22/23 12:34 10/22/23 13:02 10/22/23 16:57 Temperature Pulse Rate 107 H 96 Respiratory Rate 17 Blood Pressure 112/46 L 147/79 H Pulse Oximetry 100 Oxygen Delivery Room Air 10/22/23 18:16 10/22/23 18:31 10/22/23 19:31 Temperature 97.6 F 96.9 F L 97.2 F L Pulse Rate 83 81 81 Respiratory Rate 18 18 14 Blood Pressure 141/67 H 148/84 H 153/73 H Pulse Oximetry 98 99 100 Oxygen Delivery 10/22/23 20:31 10/22/23 21:30 10/22/23 22:10 Temperature 97.0 F L 97.0 F L 97.0 F L Pulse Rate 86 84 84 Respiratory Rate 12 14 14 Blood Pressure 168/78 H 1
[2023-10-23 09:00] LABS: Hematocrit 26.6 % (42.0-52.0); Hemoglobin 8.5 g/dL (14.0-18.0)
[2023-10-23 11:00] LABS: Appearance Urine Clear (Clear); Bacteria Urine None Seen /hpf; Bilirubin Urine Negative (Negative); Blood Urine Non-Hemolyzed Trace (Negative); Color Urine Yellow (Yellow); Glucose Urine UA Negative (Negative); Ketones Urine Negative (Negative); Leukocyte Esterase Ur Trace LEU/UL (Negative); Nitrate Urine Negative (Negative); Non Pathogenic Casts 0-2; Protein Urine Negative (Negative); Specific Grav Ur 1.023 (1.001-1.035); Squamous Epithelial Cell Urine None Seen /hpf (Few); Urobilinogen Urine 0.2 mg/dL (<2.0); WBC Urine 0-5 /hpf (0-3)
[2023-10-23 11:04] LABS: Add Urine Microscopic? YES
[2023-10-23] MEDS: LACTATED RINGERS 1,000 ML 150 ML IV CONT (13:44)
--- NOTE | 2023-10-23 14:28 | WPDANESEPPF ---
Anes - Initial Pre Proc Eval Procedure: Operation Date: 10/23/23 16:30 Proposed Procedures p Esophagogastroduodenoscopy - Alvin Heller MD Date/Time: 10/23/23 14:28 Surgeon: Julian Moctezuma MD Pre Op Diagnosis: gi bleed Patient Data Age: 83 Gender: M Height: 1.75 m Weight: 74.3 kg Last Vital Signs Temp 97.1 F L 10/23/23 13:42 Pulse 66 10/23/23 13:42 Resp 18 10/23/23 13:42 BP 157/66 H 10/23/23 13:42 Pulse Ox 99 10/23/23 13:42 O2 Del Method Room Air 10/23/23 13:42 Allergies Allergy/AdvReac Type Severity Reaction Status Date / Time Anesthetics - Jeannie Type- Allergy Unknown Verified 10/23/23 13:38 Parabens prochlorperazine AdvReac Nausea and Verified 10/23/23 13:38 Vomiting Home Medications Medication Instructions Recorded Confirmed Type losartan 100 mg tablet 100 mg PO DAILY 06/10/19 10/22/23 History pravastatin 40 mg tablet 40 mg PO DAILY 06/10/19 10/22/23 History vit C 250 mg-vit E 90 mg-zinc 40 2 tablet PO BID 06/10/19 10/22/23 History mg-copper 1 me-zvkajw-dnfrlh capsule (PreserVision AREDS-2) omeprazole 20 mg capsule,delayed 20 mg PO DAILY 10/18/19 10/22/23 History release warfarin 5 mg tablet 5 mg PO DIRECTED #90 tabs 07/20/20 10/22/23 Rx amlodipine 5 mg tablet 5 mg PO DAILY 08/17/22 10/22/23 History cholecalciferol (vitamin D3) 50 100 mcg PO DAILY #180 caps 07/19/23 10/22/23 Rx mcg (2,000 unit) capsule tamsulosin 0.4 mg capsule See Rx Instructions .Route 10/20/23 10/22/23 Rx .COMPLEX #90 caps Laboratory Tests 10/22/23 10/22/23 10/22/23 12:49 16:49 16:49 WBC RBC Hgb 6.9 L* g/dL (14.0-18.0) Hct 23.1 L % (42.0-52.0) MCV MCH MCHC RDW Plt Count MPV PT INR Sodium Potassium Chloride Carbon Dioxide Anion Gap BUN Creatinine Estim Creat Clear Calc Estimated GFR Glucose Lactic Acid 2.5 H mmol/L 2.4 H mmol/L (0.7-2.0) (0.7-2.0) Calcium Magnesium Iron 65 ug/dL (49-181) TIBC 393 ug/dL (265-497) % Saturation 17 L % (20-50) Ferritin 14.00 ng/mL (11.1-264) Total Protein Cancelled Albumin Cancelled Gqlvo-7-Wtkashybz Cancelled Rruha-7-Jdbbygwkd Cancelled Qtzs-3-Xflcvhnu Cancelled Kfcc-8-Nibmkmao Cancelled Gamma Globulins Cancelled Abnorm Protein Band 1 Cancelled Abnorm Protein Band 2 Cancelled Abnorm Protein Band 3 Cancelled PEP Interpretation Cancelled Vitamin B12 236.0 L pg/mL (239-931) Folate 17.0 ng/mL (2.76->20) TSH (Reflex) 0.367 L uIU/mL (0.465-4.68) Free T4 0.81 ng/dL (0.78-2.19) Total T3 1.13 NG/ML (0.97-1.69) Urine Color Urine Appearance Urine pH Ur Specific [place] Urine Protein Urine Glucose (UA) Urine Ketones Ur Blood (Man) Urine Nitrate Urine Bilirubin Urine Urobilinogen Ur Leukocyte Esterase Urine RBC Urine WBC Ur Squamous Epith Cells Urine Bacteria Urine Casts Blood Type A Negative Antibody Screen Negative Crossmatch See Detail 10/23/23 10/23/23 10/23/23 03:23 08:53 10:47 WBC 12.4 H K/mm3 (4.5-10.0) RBC 3.02 L M/mm3 (4.6-6.20) Hgb 8.6 L g/dL 8.5 L g/dL (14.0-18.0) (14.0-18.0) Hct 27.5 L % 26.6 L % (42.0-52.0) (42.0-52.0) MCV 91.1 fl (80-100) MCH 28.5 pg (26-
[2023-10-24] VITALS: PULSE 62
[2023-10-24 04:00] VITALS: PULSE 64
[2023-10-24 04:52] VITALS: BP 135/75; PULSE 67; RESP 17; TEMP 36.8; O2SAT 99
--- NOTE | 2023-10-24 07:56 | PM.IMPN ---
Progress Note: A&P Assessment and Plan (1) Upper GI bleed: Code(s): K92.2 - Gastrointestinal hemorrhage, unspecified Status: Acute (2) Normocytic anemia: Code(s): D64.9 - Anemia, unspecified Status: Acute (3) Chronic anticoagulation: Code(s): Z79.01 - correction (current) use of anticoagulants Status: Acute (4) Gastroesophageal reflux disease: Qualifiers: Esophagitis presence: esophagitis presence not specified Qualified Code(s): K21.9 - Gastro-esophageal reflux disease without esophagitis Code(s): K21.9 - Gastro-esophageal reflux disease without esophagitis Status: Acute (5) Hypertension: Qualifiers: Hypertension type: essential hypertension Qualified Code(s): I10 - Essential (primary) hypertension Code(s): I10 - Essential (primary) hypertension Status: Acute (6) Benign prostatic hyperplasia: Code(s): N40.0 - Benign prostatic hyperplasia without lower urinary tract symptoms Status: Acute (7) Paroxysmal atrial flutter: Code(s): I48.92 - Unspecified atrial flutter Status: Acute Plan The patient presented to the emergency department for evaluation of dizziness, nausea, and vomiting upon waking in the morning. Since arrival to the hospital he has had 2 episodes of hematemesis described as dark red in color. Repeat hemoglobin is now under 7 g and he will be transfused 2 units of packed red blood cells. INR is 2.6 and given ongoing hematemesis he will be given vitamin K 10 mg x 1. Continue pantoprazole. acute GI bleeding Patient had a nausea vomiting and bloody emesis Patient also has the chloride stool Continue Protonix IV Keep patient p.o. INR 2.5, received vitamin K 10 mg IM 1x Consult GI for evaluation treatment EGD showed AVM, catherized with APC acute on blood-loss anemia hemoglobin 7.2, 2nd test hemoglobin 6.9, received 2 pack RBC from GI bleeding Follow-up iron panel normal paroxysmal AFib Current patient has a sinus rhythm Hold warfarin 1 wk after dc per GI uncontrolled hypertension Continue amlodipine 5 mg daily p.o. BP is well controlled leukocytosis and lactic acidosis Likely due to the GI bleeding and hypoperfusion CT shows no pneumonia Follow urinalysis Patient is afebrile hold antibiotics now no resolves Subjective Date/time seen: 10/24/23 07:56 Interval history: I saw exam patient today, patient feels better, denies nausea vomiting lightheadedness, short of breath. Hemoglobin stable after receiving transfusion Exam Narrative: GENERAL: Pleasant, in no acute distress. Well-nourished. - EYES: EOMI. Anicteric. - HENT: Moist mucous membranes. - LUNGS: Clear to auscultation bilaterally, no wheezing, rhonchi, or rales. - CARDIOVASCULAR: Regular rate and rhythm. No murmur. No JVD. - ABDOMEN: Soft, non-tender and non-distended. No palpable masses. - EXTREMITIES: No edema. Peripheral pulses 2+. Non-tender. - NEUROLOGIC: No focal neurological deficits. CN II-XII grossly intact. general weakness - PSYCHIATRIC: Awake, Alert and oriented x 3. Appropriate mood and affect. - SKIN: No rashes or lesions. Warm. - LYMPH: No cervical lymphadenopathy. Objective Data Vital Signs Vital Signs: Vital Signs - 24 hr 10/23/23 08:00 10/23/23 08:37 10/23/23 08:00 Temperature Pulse Rate 64 Respiratory Rate Blood Pressure 164/70 H Pulse Oximetry Oxygen Delivery Room Air 10/23/23 12:00 10/23/23 13:42 10/23/23 14:50 Temperature 97.1 F L Pulse Rate 74 66 69 Respiratory Rate 18 18 Blood Pressure 157/66 H 100/49 L Pulse Oximetry 99 100 Oxygen Delivery Room Air Room Air 10/23/23 15:00 10/23/23 15:10 10/23/23 15:21 Temperature Pulse Rate 67 63 69 Respiratory Rate 18 18 18 Blood Pressure 112/55 L 121/65 148/72 H Pulse Oximetry 99 100 100 Oxygen Delivery Room Air Room Air 10/23/23 16:00 10/23/23 20:08 10/23/23 20:00
--- NOTE | 2023-10-24 08:01 | PM.DS ---
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 Status: Acute (4) Gastroesophageal reflux disease: Qualifiers: Esophagitis presence: esophagitis presence not specified Qualified Code(s): K21.9 - Gastro-esophageal reflux disease without esophagitis Code(s): K21.9 - Gastro-esophageal reflux disease without esophagitis Status: Acute (5) Hypertension: Qualifiers: Hypertension type: essential hypertension Qualified Code(s): I10 - Essential (primary) hypertension Code(s): I10 - Essential (primary) hypertension Status: Acute (6) Benign prostatic hyperplasia: Code(s): N40.0 - Benign prostatic hyperplasia without lower urinary tract symptoms Status: Acute (7) Paroxysmal atrial flutter: Code(s): I48.92 - Unspecified atrial flutter Status: Acute DS: Summary Hospital Course Hospital Course: The patient presented to the emergency department for evaluation of dizziness, nausea, and vomiting upon waking in the morning. Since arrival to the hospital he has had 2 episodes of hematemesis described as dark red in color. Repeat hemoglobin is now under 7 g and he will be transfused 2 units of packed red blood cells. INR is 2.6 and given ongoing hematemesis he will be given vitamin K 10 mg x 1. pantoprazole. the following med issues have been addressed during hospitalization acute GI bleeding Patient had a nausea vomiting and bloody emesis Patient also has the chloride stool Continue Protonix IV Keep patient p.o. INR 2.5, received vitamin K 10 mg IM 1x Consult GI for evaluation treatment EGD showed AVM, catherized with APC acute on blood-loss anemia hemoglobin 7.2, 2nd test hemoglobin 6.9, received 2 pack RBC from GI bleeding Follow-up iron panel normal paroxysmal AFib Current patient has a sinus rhythm Hold warfarin 1 wk after dc per GI uncontrolled hypertension Continue amlodipine 5 mg daily p.o. BP is well controlled leukocytosis and lactic acidosis Likely due to the GI bleeding and hypoperfusion CT shows no pneumonia Follow urinalysis Patient is afebrile hold antibiotics now no resolves Time Spent with Patient Time attestation: Total time spent providing and/or coordinating discharge services: Exam Narrative: GENERAL: Pleasant, in no acute distress. Well-nourished. - EYES: EOMI. Anicteric. - HENT: Moist mucous membranes. - LUNGS: Clear to auscultation bilaterally, no wheezing, rhonchi, or rales. - CARDIOVASCULAR: Regular rate and rhythm. No murmur. No JVD. - ABDOMEN: Soft, non-tender and non-distended. No palpable masses. - EXTREMITIES: No edema. Peripheral pulses 2+. Non-tender. - NEUROLOGIC: No focal neurological deficits. CN II-XII grossly intact. general weakness - PSYCHIATRIC: Awake, Alert and oriented x 3. Appropriate mood and affect. - SKIN: No rashes or lesions. Warm. - LYMPH: No cervical lymphadenopathy. DS: Data Data Completed and Pending Labs on day of discharge: Labs from last 24 hours 10/23/23 10/23/23 10:47 08:53 Hgb 8.5 L Hct 26.6 L Urine Color Yellow Urine Appearance Clear Urine pH 6.0 Ur Specific [place] 1.023 Urine Protein Negative Urine Glucose (UA) Negative Urine Ketones Negative Ur Blood (Man) Non-hemolyzed trace Urine Nitrate Negative Urine Bilirubin Negative Urine Urobilinogen 0.2 Ur Leukocyte Esterase Trace H Urine RBC 3-5 H Urine WBC 0-5 Ur Squamous Epith Cells None seen Urine Bacteria None seen Urine Casts 0-2 Discharge Plan Discharge A
[2023-10-24 08:33] LABS: Hematocrit 26.6 % (42.0-52.0); Hemoglobin 8.4 g/dL (14.0-18.0); Mean Corpuscular HGB Conc 31.6 g/dl (32-36); Mean Corpuscular Hemoglobin 29.2 pg (26-34); Mean Corpuscular Volume 92.4 fl (80-100); Mean Platelet Volume 9.5 fl (7.4-10.4); Platelet Count Result 262 k/mm3 (150-375); Red Blood Count 2.88 M/mm3 (4.6-6.20); Red Cell Distribution Width 15.5 % (11.5-14.5); White Blood Count 9.3 K/mm3 (4.5-10.0)
[2023-10-24 08:39] LABS: Anion Gap 1 mmol/L (4-12); Blood Urea Nitrogen 22 mg/dL (9-20); Calcium 8.2 mg/dL (8.4-10.2); Carbon Dioxide 26 mmol/L (22-30); Chloride 110 mmol/L (98-107); Estimated CRCL calculation 63 ml/min; Estimated Glomerular Filt Rate > 60; Glucose 91 mg/dL (65-110); Potassium 3.9 mmol/L (3.4-5.0); Sodium 137 mmol/L (137-145)
--- NOTE | 2023-10-24 08:43 | WPDANESPN ---
Anes - Prog Note Post-Op Date/Time: 10/24/23 08:43 Cardiovascular status: normal Respiratory status: normal Airway patency: baseline Mental status: baseline Post-Op hydration status: normal Vital Signs: Last Vital Signs Temp 36.8 C 10/24/23 04:52 Pulse 67 10/24/23 04:52 Resp 17 10/24/23 04:52 BP 135/75 10/24/23 04:52 Pulse Ox 99 10/24/23 04:52 O2 Del Method Room Air 10/23/23 20:00 Pain Score (VAS): 05/31 I/O: Intake & Output 10/23/23 10/24/23 10/24/23 23:59 07:59 15:59 Intake Total 680 250 Balance 680 250 Laboratory Tests 10/24/23 08:13 10/23/23 10/23/23 10/24/23 08:53 10:47 08:13 WBC Pending RBC Pending Hgb 8.5 L Pending Hct 26.6 L Pending MCV Pending MCH Pending MCHC Pending RDW Pending Plt Count Pending MPV Pending Sodium 137 Potassium 3.9 Chloride 110 H Carbon Dioxide 26 Anion Gap 1 L BUN 22 H D Creatinine 0.80 Estim Creat Clear Calc 63 Estimated GFR > 60 Glucose 91 Calcium 8.2 L Urine Color Yellow Urine Appearance Clear Urine pH 6.0 Ur Specific [place] 1.023 Urine Protein Negative Urine Glucose (UA) Negative Urine Ketones Negative Ur Blood (Man) Non-hemolyzed trace Urine Nitrate Negative Urine Bilirubin Negative Urine Urobilinogen 0.2 Ur Leukocyte Esterase Trace H Urine RBC 3-5 H Urine WBC 0-5 Ur Squamous Epith Cells None seen Urine Bacteria None seen Urine Casts 0-2 Post-procedural complaints: none Patient Feedback: Patient satisfied with anesthetic care.
[2023-10-24] MEDS: TAMSULOSIN HCL 0.4 MG CAPSULE BY MOUTH (08:55)
[2023-10-24] MEDS: OPTI-GEN TAB 1 TABLET PO (08:55)
[2023-10-24] MEDS: amLODIPine BESYLATE 5 MG TABLET PO (08:55)
[2023-10-24] MEDS: LOSARTAN POTASSIUM 100 MG TABLET PO (08:55)
[2023-10-24] MEDS: PRAVASTATIN SODIUM 20 MG TABLET 40 MG PO (08:55)
[2023-10-24] MEDS: PANTOPRAZOLE SODIUM IV 40 MG VIAL IV PUSH (08:55)
[2023-10-24 08:59] VITALS: O2SAT 99
== END 2023-10-24 10:28 | disposition home or self-care (01) | DRG 378 ==
LOC: ANHED 14:47 → ANH2MED 15:53
PROVIDERS: Family Medicine; Internal Medicine Gastroenterology; Physician Assistant; Admitting Provider Internal Medicine; Emergency Provider Emergency Medicine; PCP Emergency Medicine; Visit Provider Hospitalist
PROC: 0DJ08ZZ Inspection of Upper Intestinal Tract, Via Natural or Artificial Opening Endoscopic (ICD-10-PCS; CPT 43235; principal; 2023-10-23 16:30)
DX: K31.811 Angiodysplasia of stomach and duodenum with bleeding (principal); D62 Acute posthemorrhagic anemia; I48.92 Unspecified atrial flutter; E87.20 Acidosis, unspecified; I35.0 Nonrheumatic aortic (valve) stenosis; I10 Essential (primary) hypertension; I48.0 Paroxysmal atrial fibrillation; K21.9 Gastro-esophageal reflux disease without esophagitis; E78.5 Hyperlipidemia, unspecified; N40.0 Benign prostatic hyperplasia without lower urinary tract symptoms; M19.90 Unspecified osteoarthritis, unspecified site; Z95.0 Presence of cardiac pacemaker; Z79.01 Long term (current) use of anticoagulants
CPT/HCPCS: 36415; 36430; 80048; 80053; 81001; 82607; 82728; 82746; 83540; 83550; 83605; 83690; 83735; 84155; 84165; 84439; 84443; 84480; 84484; 85014; 85018; 85025; 85027; 85610; 86850; 86900; 86901; 86923; 93005; 96361; 96374; 96375; 99285; A9270; C9113; J2405; J2704; J3430; J7030; J7050; J7120; P9016

== ENCOUNTER 2023-11-16 15:51 | Inpatient (IN) | payer MEDICARE, SELFPAY ==
--- NOTE | ~2023-11-16 | CT_ITS ---
EXAMINATION: CT abdomen pelvis w con DATE: 11/16/2023 20:41 INDICATION: diffuse abd pain, nausea, recent gib TECHNIQUE: Computed tomography (CT) of the abdomen and pelvis was performed with 100 mL Omnipaque-350 intravenous contrast. Automated exposure control and iterative reconstruction technique were employe d. The dose-length product was 336.69 mGy-cm. COMPARISON: None. FINDINGS: Lower thorax: Pacer leads, in good position. Aortic valve and coronary artery calcification. Dependen t scar/atelectasis Liver: Simple left lobe cyst. Subcentimeter left lobe hypodensity, too small to characterize but like ly represents a cyst. Irregular focus of somewhat nodular hyperenhancement near the gallbladder fossa , likely hemangioma. Biliary/Gallbladder: Cholelithiasis. Hyperdensity at the gallbladder neck. Mild gallbladder distentio n. No bile duct dilation. Pancreas: No mass or duct dilation. Spleen: Normal. Adrenals:2.2 cm indeterminate density right adrenal lesion. Normal left adrenal. Kidneys: No suspicious mass, obstructing stone, or hydronephrosis. Multiple simple left renal cysts a nd lesions that are too small to characterize but also likely represent cysts. GI tract: No small or large bowel dilation. Normal appendix. Mesentery/Peritoneum: No ascites, mass, or free air. Retroperitoneum: No mass. Atherosclerotic abdominal aortic and/or arterial calcifications. Pelvis: Mild wall thickening in a moderately distended urinary bladder. Marked prostatomegaly. Soft Tissues: Soft tissues and body wall unremarkable. Bones: No acute osseous finding. IMPRESSION: Gallbladder hydrops with possible impacted gallstone in the gallbladder neck. Indeterminate 2.2 cm right adrenal lesion, recommend outpatient adrenal CT for further characterizati on. Mild urinary bladder wall thickening likely secondary to outlet obstruction from prostatomegaly. Mireya elate with urinalysis. Reviewed, dictated and finalized at location K. IMPRESSION: Gallbladder hydrops with possible impacted gallstone in the gallbladder neck. Indeterminate 2.2 cm right adrenal lesion, recommend outpatient adrenal CT for further characterization. Mild urinary bladder wall thickening likely secondary to outlet obstruction fro m prostatomegaly. Correlate with urinalysis.
[2023-11-16 16:16] VITALS: BP 155/78; PULSE 68; RESP 20; TEMP 36.3; O2SAT 100
[2023-11-16 19:31] VITALS: BP 188/88; PULSE 71; RESP 15; O2SAT 100
--- NOTE | 2023-11-16 19:39 | ED.ABDPAIN ---
HPI - Abdominal Pain General Chief Complaint: Abdominal Pain Stated Complaint: abd pain Time Seen by Provider: 11/16/23 18:01 Source: patient Mode of arrival: ambulatory Limitations: no limitations History of Present Illness HPI narrative: Patient is an 83-year-old male who presents to the ED with report of abdominal pain. patient reports having pain since around 2:00 p.m. today. States it initially started in his left upper abdomen, now radiating diffusely across his abdomen. He tried taking Tylenol and Pepcid at home without relief. He reports nausea, denies vomiting. Denies diarrhea/constipation. Last bowel movement was this morning and normal. He does not believe there was any blood in his stool or melena. He does report recent admission to the hospital 3 weeks ago for upper GI bleed. He had an endoscopy at that time. he is on warfarin due to history of pacemaker and atrial fibrillation. Denies hematemesis. Denies urinary complaints. Denies fevers. Related Data Home Medications Medication Instructions Recorded Confirmed losartan 100 mg tablet 100 mg PO DAILY 06/10/19 11/17/23 pravastatin 40 mg tablet 40 mg PO DAILY 06/10/19 11/17/23 vit C 250 mg-vit E 90 mg-zinc 40 2 tablet PO BIDWM 06/10/19 11/17/23 mg-copper 1 [id number] capsule (PreserVision AREDS-2) amlodipine 5 mg tablet 5 mg PO DAILY 08/17/22 11/17/23 omeprazole 20 mg capsule,delayed 20 mg PO DAILY 11/08/23 11/17/23 release finasteride 5 mg tablet 5 mg PO DAILY 11/17/23 11/17/23 tamsulosin 0.4 mg capsule 0.4 mg PO DAILY 11/17/23 11/17/23 warfarin 5 mg tablet 7.5 mg PO DAILY 11/17/23 11/17/23 Allergies Allergy/AdvReac Type Severity Reaction Status Date / Time Anesthetics - Jeannie Type- Allergy Unknown Verified 11/16/23 23:58 Parabens prochlorperazine AdvReac Nausea and Verified 11/16/23 23:58 Vomiting Review of Systems Review of Systems: CONSTITUTIONAL: Denies fever, chills, or sweats. GASTROINTESTINAL: See HPI. GENITOURINARY: Denies dysuria or hematuria. All systems reviewed & are unremarkable except as noted in HPI and below PMFSH Past Medical History Medical History Abdominal aortic aneurysm Acute right ankle pain Aortic calcification Aortic stenosis Arthritis Arthritis of both hands Benign prostatic hyperplasia Bilateral carotid bruits Cellulitis Chronic anticoagulation Dizziness Erectile dysfunction due to arterial insufficiency Essential (primary) hypertension Gastroesophageal reflux disease Hyperglycemia Hyperlipidemia Hypertension Jock itch Male erectile dysfunction, unspecified Nausea Nonrheumatic aortic valve stenosis Paroxysmal atrial fibrillation Paroxysmal atrial fibrillation Paroxysmal atrial flutter Systolic murmur Vitamin D deficiency Surgical History Surgical History History of cardiac radiofrequency ablation Atrial flutter ablation 2006. Atrial fibrillation ablation in May 2011. History of loop recorder History of permanent cardiac pacemaker placement History of repair of right rotator cuff (11/30/09) Family History Family History Father Family history of cardiovascular disease, Onset Age: 73 Cerebrovascular accident, Onset Age: 73 Mother Family history of malignant neoplasm, Onset Age: 62 Social History Social History Social History: Surrogate medical decision maker: Nyasia Barrera, spouse. Code status: Full code. Smoking packs per day: 1.5 Smoking cigarettes per day: 30.0 Years smoked: 30 Smoking pack-years: 45.00 Smoking status: Former smoker Alcohol intake: never Substance use: never Substance use type: does not use Do You Feel Safe in your Home?: Yes Lack of Transportation: No [place]
[2023-11-16 20:13] LABS: Basophils Absolute Auto 0.1 K/mm3 (0.0-0.1); Basophils Percent Auto 0.5 % (0.2-1.2); Eosinophils Absolute Auto 0.2 K/mm3 (0-0.3); Eosinophils Percent Auto 1.6 % (0-4.4); Hematocrit 30.3 % (42.0-52.0); Hemoglobin 9.1 g/dL (14.0-18.0); Immature Granulocyte Absolute 0.04 K/mm3 (0.00-0.031); Immature Granulocyte Percent A 0.4 % (0-0.5); Lymphocytes Absolute Auto 1.48 K/mm3 (0.9-3.2); Lymphocytes Percent Auto 14.1 % (18.3-44.2); Mean Corpuscular Hemoglobin 26.1 pg (26-34); Mean Corpuscular Volume 87.1 fl (80-100); Mean Platelet Volume 9.3 fl (7.4-10.4); Monocytes Absolute Auto 0.6 K/mm3 (0.1-0.6); Monocytes Percent Auto 5.8 % (2.6-8.5); Neutrophils Absolute Auto 8.2 K/mm3 (1.3-6.7); Neutrophils Percent Auto 77.6 % (45.5-73.1); Platelet Count Result 329 k/mm3 (150-375); Red Blood Count 3.48 M/mm3 (4.6-6.20); Red Cell Distribution Width 15.1 % (11.5-14.5); White Blood Count 10.5 K/mm3 (4.5-10.0)
[2023-11-16 20:14] LABS: Appearance Urine Clear (Clear); Bilirubin Urine Negative (Negative); Blood Urine Negative (Negative); Color Urine Yellow (Yellow); Glucose Urine UA Negative (Negative); Ketones Urine Negative (Negative); Leukocyte Esterase Ur Negative LEU/UL (Negative); Nitrate Urine Negative (Negative); Protein Urine Negative (Negative); Specific Grav Ur 1.017 (1.001-1.035); Urobilinogen Urine 0.2 mg/dL (<2.0); pH Urine 6.5 (5.0-9.0)
[2023-11-16 20:15] LABS: Add Urine Microscopic? NO
[2023-11-16 20:21] LABS: Alanine Aminotransferase 31 U/L (6-50); Albumin Level 4.2 g/dL (3.5-5.1); Alkaline Phosphatase 103 U/L (38-126); Anion Gap 9 mmol/L (4-12); Aspartate Amino Transferase 35 U/L (17-59); Bilirubin,Total 0.4 mg/dL (0.2-1.3); Blood Urea Nitrogen 18 mg/dL (9-20); Calcium 8.8 mg/dL (8.4-10.2); Carbon Dioxide 22 mmol/L (22-30); Chloride 108 mmol/L (98-107); Estimated CRCL calculation 63 ml/min; Estimated Glomerular Filt Rate > 60; Glucose 98 mg/dL (65-110); Lipase 87 U/L (23-300); Sodium 139 mmol/L (137-145)
[2023-11-16 20:22] LABS: Lactic Acid Reflex 1.6 mmol/L (0.7-2.0)
[2023-11-16 20:24] LABS: INR 2.2; Prothrombin Time 25.1 Seconds (11.1-14.7)
[2023-11-16 20:25] LABS: Partial Thromboplastin Time 41.2 Seconds (22.3-36.8)
[2023-11-16 20:45] VITALS: BP 178/99; PULSE 73; RESP 16; O2SAT 100
[2023-11-16] MEDS: ONDANSETRON INJ 4 MG/2 ML VIAL IV PUSH (20:46)
[2023-11-16] MEDS: MORPHINE SULFATE (*CRX) 2 MG/ML INJ IV PUSH (20:46)
--- NOTE | 2023-11-16 22:50 | PM.IMHP ---
H&P: HPI History of Present Illness Date/Time: 11/16/23 22:50 Chief Complaint: RUQ pain. Narrative: this is an 83-year-old male with past medical history significant for hypertension, benign prostatic hyperplasia, atrial fibrillation rate controlled and anticoagulated, GERD, nonrheumatic aortic valve stenosis. patient presents to the emergency room due to right upper quadrant pain, denies any fevers chills rigors night sweats, pain started in the afternoon had some nausea and dry heaving but no vomiting. Preliminary workup was significant for CT of abdomen and pelvis with gallbladder impacted calculus EXAMINATION: CT abdomen pelvis w con DATE: 11/16/2023 20:41 INDICATION: diffuse abd pain, nausea, recent gib TECHNIQUE: Computed tomography (CT) of the abdomen and pelvis was performed with 100 mL Omnipaque-350 intravenous contrast. Automated exposure control and iterative reconstruction technique were employed. The dose-length product was 336.69 mGy-cm. COMPARISON: None. FINDINGS: Lower thorax: Pacer leads, in good position. Aortic valve and coronary artery calcification. Dependent scar/atelectasis Liver: Simple left lobe cyst. Subcentimeter left lobe hypodensity, too small to characterize but likely represents a cyst. Irregular focus of somewhat nodular hyperenhancement near the gallbladder fossa, likely hemangioma. Biliary/Gallbladder: Cholelithiasis. Hyperdensity at the gallbladder neck. Mild gallbladder distention. No bile duct dilation. Pancreas: No mass or duct dilation. Spleen: Normal. Adrenals:2.2 cm indeterminate density right adrenal lesion. Normal left adrenal. Kidneys: No suspicious mass, obstructing stone, or hydronephrosis. Multiple simple left renal cysts and lesions that are too small to characterize but also likely represent cysts. GI tract: No small or large bowel dilation. Normal appendix. Mesentery/Peritoneum: No ascites, mass, or free air. Retroperitoneum: No mass. Atherosclerotic abdominal aortic and/or arterial calcifications. Pelvis: Mild wall thickening in a moderately distended urinary bladder. Marked prostatomegaly. Soft Tissues: Soft tissues and body wall unremarkable. Bones: No acute osseous finding. IMPRESSION: Gallbladder hydrops with possible impacted gallstone in the gallbladder neck. Indeterminate 2.2 cm right adrenal lesion, recommend outpatient adrenal CT for further characterization. Mild urinary bladder wall thickening likely secondary to outlet obstruction from prostatomegaly. Correlate with urinalysis. Review of Systems Review of Systems: right upper quadrant pain, nausea, dry heaving. Constitutional: Constitutional: Denies chills, Denies fever(s), Denies malaise, Denies night sweats and Denies poor appetite Eyes: Eyes: Denies change in vision ENT: Denies dysphagia, Denies vertigo, Denies dizziness and Denies odynophagia Cardiovascular: Cardiovascular: Denies chest pain, Denies radiating jaw, neck or arm pain and Denies palpitations Respiratory: Respiratory: Denies chest congestion and Denies dyspnea Gastrointestinal: Gastrointestinal: Reports abdominal pain, Denies diarrhea, Reports nausea and Denies vomiting Genitourinary: Genitourinary: Denies dysuria Musculoskeletal: Musculoskeletal: Denies myalgias Integumentary/Breasts: Skin/Breast: Denies rash Neurologic: Denies focal weakness and Denies Sensory deficit (Neuro) Psychiatric: Psychiatric: Reports no additional psychiatric complaints and Reports as per HPI Endocrine: Endocrine: Denies cold intolerance, Denies heat intolerance, Denies polyphagia, Denies polydipsia and Denies polyuria Hematologic/Lymphatic: Hematologic/Lymphatic: Reports no additional hematologic/lymphatic complaints and Reports as per HPI Allergic/Immunologic: Allergic/Immunologic: Reports no additional allergic/immunologic complaints and Reports as per HPI [facility] Past Medical History Medical History (Updated 11/16/23 @ 22:57 by Nara Christianson
[2023-11-16 22:59] VITALS: BP 174/92; PULSE 75; RESP 18; O2SAT 98
--- NOTE | 2023-11-16 23:27 | PC.NURSE ---
Tru, Mirlande & Derrick, are trying to obtain blood cultures on patient. Report already called. Patient to be taken to floor once blood cultures are obtained.
[2023-11-16] MEDS: PANTOPRAZOLE SODIUM IV 40 MG VIAL IV PUSH (23:30)
[2023-11-16 23:47] VITALS: BMI 22.7
--- NOTE | 2023-11-16 23:51 | ADMGEN ---
This patient, Lis Barrera, was admitted to [facility] Surg Room 306-02. Patient/family oriented to hospital policies and general routines including ID bracelet, bed and alarms, visiting hours, pain management, procedures, bathroom and other care routines, personal items, smoking policy, room service/diet, and visiting hours. Information on how to activate the Rapid Response Team has been discussed. Patient/Family are encouraged to report perceived risks to care and to ask questions if they do not understand what they are told or what they should do.
[2023-11-17] VITALS (14 sets, daily range): BP systolic 144–162; BP diastolic 61–82; PULSE 64–73; RESP 13–18; TEMP 36.6–37; O2SAT 97–100
[2023-11-17] MEDS: SODIUM CHLORIDE 0.9% IV 1,000 ML 75 ML IV CONT (00:25)
[2023-11-17] MEDS: PHYTONADIONE 5 MG TABLET PO (00:26)
[2023-11-17] MEDS: PIPERACILLN/TAZ 3.375GM/NS50ML 3.375 GM/50 ML BAG IVPB ×4 (00:26→18:01)
[2023-11-17 05:08] LABS: Basophils Absolute Auto 0.1 K/mm3 (0.0-0.1); Basophils Percent Auto 0.7 % (0.2-1.2); Eosinophils Absolute Auto 0.6 K/mm3 (0-0.3); Hematocrit 28.7 % (42.0-52.0); Hemoglobin 8.6 g/dL (14.0-18.0); Immature Granulocyte Absolute 0.04 K/mm3 (0.00-0.031); Immature Granulocyte Percent A 0.3 % (0-0.5); Lymphocytes Absolute Auto 2.11 K/mm3 (0.9-3.2); Mean Corpuscular Hemoglobin 26.2 pg (26-34); Mean Corpuscular Volume 87.5 fl (80-100); Mean Platelet Volume 9.5 fl (7.4-10.4); Monocytes Absolute Auto 1.2 K/mm3 (0.1-0.6); Monocytes Percent Auto 10.4 % (2.6-8.5); Neutrophils Absolute Auto 7.7 K/mm3 (1.3-6.7); Neutrophils Percent Auto 65.6 % (45.5-73.1); Platelet Count Result 322 k/mm3 (150-375); Red Blood Count 3.28 M/mm3 (4.6-6.20); Red Cell Distribution Width 15.3 % (11.5-14.5); White Blood Count 11.7 K/mm3 (4.5-10.0)
[2023-11-17 05:20] LABS: Alanine Aminotransferase 26 U/L (6-50); Albumin Level 3.7 g/dL (3.5-5.1); Alkaline Phosphatase 98 U/L (38-126); Anion Gap 7 mmol/L (4-12); Aspartate Amino Transferase 28 U/L (17-59); Bilirubin,Total 0.5 mg/dL (0.2-1.3); Blood Urea Nitrogen 16 mg/dL (9-20); Calcium 8.6 mg/dL (8.4-10.2); Carbon Dioxide 23 mmol/L (22-30); Chloride 108 mmol/L (98-107); Estimated CRCL calculation 56 ml/min; Estimated Glomerular Filt Rate > 60; Glucose 94 mg/dL (65-110); INR 2.3; Lipase 66 U/L (23-300); Potassium 3.8 mmol/L (3.4-5.0); Prothrombin Time 25.8 Seconds (11.1-14.7); Sodium 138 mmol/L (137-145)
[2023-11-17 05:21] LABS: Partial Thromboplastin Time 44.6 Seconds (22.3-36.8)
[2023-11-17] MEDS: PANTOPRAZOLE SODIUM IV 40 MG VIAL IV PUSH ×2 (08:36→20:31)
[2023-11-17] MEDS: SODIUM CHLORIDE 0.9% IV 250 ML 30 ML IV CONT (12:20)
--- NOTE | 2023-11-17 15:24 | WPDCN ---
Assessment and Plan Assessment and plan (1) Acute calculous cholecystitis: Code(s): K80.00 - Calculus of gallbladder with acute cholecystitis without obstruction Status: Acute Assessment and Plan: Patient appears to have a least mild acute cholecystitis and cholelithiasis. Clinically his exam and complaints do not correlate with a hydrops of the gallbladder were necrotic gallbladder. White blood cell counts increased slightly to 11,000 from 10,000 last evening. Liver enzymes are all still normal. His INR is 2.4 today was 2.2 yesterday so he has been taking his Coumadin. He does not have acute surgical abdomen and so I think we can reverse his Coumadin with some fresh frozen plasma today a little has some clear liquids. if his INR is 1.4 last tomorrow then I think it would be safe to continue with a laparoscopic cholecystectomy with possible conversion open cholecystectomy during this admission. Continue IV antibiotics. Him NPO at midnight. (2) Chronic anticoagulation: Code(s): Z79.01 - buttermaker continuous churn (current) use of anticoagulants Status: Acute Assessment and Plan: Patient is on Coumadin. This is for atrial fibrillation. With this has been stopped and held for surgery likely tomorrow. SCDs for mechanical DVT prophylaxis. HPI Data of Consult Date/Time: 11/17/23 15:24 Requesting Physician: Melly Villa APRN Primary Care Provider: Mikey Olivera MD Consult Narrative Reason for consult: Acute cholecystitis secondary to cholelithiasis Narrative: Lis Barrera is a 83 year old male and was seen in the emergency room with complaints of epigastric and right upper quadrant abdominal pain incisions some nausea vomiting. Patient was having pain for about 12hours prior to coming to the emergency room. White blood cell count was normal and liver enzymes were normal. CT scan of the abdomen and pelvis showed a dilated gallbladder with questionable gallbladder hydrops. There appeared to be gallstones within the neck of the gallbladder. He says he was admitted to the hospital for acute cholecystitis and started on IV antibiotics. He is on Coumadin due to history of atrial fibrillation. His INR was 2.2 on admission. Review of Systems Review of Systems: The remainder of the review of systems to include constitutional, HEENT, cardiovascular, respiratory, GI, , integumentary, musculoskeletal, endocrine, immunologic, hematologic, psychiatric, and neurologic are all negative except for which is mentioned above in the HPI. [facility] Past Medical History Medical History Abdominal aortic aneurysm Acute right ankle pain Aortic calcification Aortic stenosis Arthritis Arthritis of both hands Benign prostatic hyperplasia Bilateral carotid bruits Cellulitis Chronic anticoagulation Dizziness Erectile dysfunction due to arterial insufficiency Essential (primary) hypertension Gastroesophageal reflux disease Hyperglycemia Hyperlipidemia Hypertension Jock itch Male erectile dysfunction, unspecified Nausea Nonrheumatic aortic valve stenosis Paroxysmal atrial fibrillation Paroxysmal atrial fibrillation Paroxysmal atrial flutter Systolic murmur Vitamin D deficiency Surgical History Surgical History History of cardiac radiofrequency ablation Atrial flutter ablation 2006. Atrial fibrillation ablation in May 2011. History of loop recorder History of permanent cardiac pacemaker placement History of repair of right rotator cuff (11/30/09) Family History Family History Father Family history of cardiovascular disease, Onset Age: 73 Cerebrovascular accident, Onset Age: 73 Mother Family history of malignant neoplasm, Onset Age: 62 Social History Social History (Reviewed 11/17/23 @ 15:26 by Scott Hutchins
--- NOTE | 2023-11-17 15:51 | PM.IMPN ---
Progress Note: A&P Assessment and Plan (1) RUQ pain: Code(s): R10.11 - Right upper quadrant pain Status: Acute Assessment and Plan: 11/17/23: Abdomen/pelvis CT shown gallbladder hydrops with possible impacted gallstone in the gallbladder neck, indeterminate 2.2 cm right adrenal lesion, mild urinary bladder wall thickening likely secondary to outlet obstruction from enlarged prostate General surgery consulted INR 2.3, patient was given a 1 time dose of phytonadione 5 mg Plan to go to OR tomorrow for laparoscopic cholecystectomy Continue pain control Continue nausea control NPO after midnight Continue Zosyn (2) Cholelithiasis: Qualifiers: Biliary obstruction: without biliary obstruction Cholecystitis acuity: acute Cholecystitis presence: with cholecystitis Cholelithiasis location: gallbladder Qualified Code(s): K80.00 - Calculus of gallbladder with acute cholecystitis without obstruction Code(s): K80.20 - Calculus of gallbladder without cholecystitis without obstruction Status: Acute Assessment and Plan: 11/17/23: See above (3) Afib: Qualifiers: Atrial fibrillation type: paroxysmal Qualified Code(s): I48.0 - Paroxysmal atrial fibrillation Code(s): I48.91 - Unspecified atrial fibrillation Status: Acute Assessment and Plan: 11/17/23: Warfarin on hold Received 1 dose of Phytonadione in the ER and got 1 unit FFP Will recheck INR in the morning. (4) Chronic back pain: Code(s): M54.9 - Dorsalgia, unspecified; G89.29 - Other chronic pain Status: Chronic Assessment and Plan: 11/17/23: Tylenol, [place], morphine ordered for pain control (5) Gastroesophageal reflux disease: Qualifiers: Esophagitis presence: esophagitis presence not specified Qualified Code(s): K21.9 - Gastro-esophageal reflux disease without esophagitis Code(s): K21.9 - Gastro-esophageal reflux disease without esophagitis Status: Chronic Assessment and Plan: 11/17/23: Continue Protonix 40 mg IV push q.12 hour (6) Hypertension: Qualifiers: Hypertension type: essential hypertension Qualified Code(s): I10 - Essential (primary) hypertension Code(s): I10 - Essential (primary) hypertension Status: Chronic Assessment and Plan: 11/17/23: Blood pressure ranging 156/68 to 162/75 Continue amlodipine and losartan (7) Hyperlipidemia: Code(s): E78.5 - Hyperlipidemia, unspecified Status: Chronic Assessment and Plan: 11/17/23: Continue pravastatin (8) Benign prostatic hyperplasia: Code(s): N40.0 - Benign prostatic hyperplasia without lower urinary tract symptoms Status: Chronic Assessment and Plan: 11/17/23: Continue tamsulosin Time Spent With Patient Time with patient: 25 - 35 minutes Subjective Date/time seen: 11/17/23 15:51 Interval history: Interval history: This is an 83-year-old male who presented to the ED on 11/16/2023 with complaints of abdominal pain. Workup in the hospital included CT of the abdomen pelvis which shows gallbladder hydrops with possible impacted gallstone in the gallbladder neck, indeterminate 2.2 cm right adrenal lesion, mild urinary bladder wall thickening likely secondary to outlet obstruction from enlarged prostate. Initial labs revealed a white blood cell count of 10.5, hemoglobin 9.1, INR 2.2, otherwise unremarkable. UA was obtained and was negative. Blood cultures were obtained and are pending. Last echo was reviewed from 08/26/2021 which shown a normal LV systolic function with an estimated EF of 70-75%, moderate aortic stenosis, diastolic dysfunction. Patient was given morphine, Zofran, Protonix, and Zosyn while in the ED. general surgery was consulted. Patient denies any fever, chills, nausea, vomiting, diarrhea, abdominal pain, chest pain or shortness of breath at this time. He states when he originally came in he h
[2023-11-17] MEDS: SODIUM CHLORIDE 0.9% INJ 10 ML (20:31)
[2023-11-18] VITALS (20 sets, daily range): BP systolic 150–188; BP diastolic 52–88; PULSE 60–90; RESP 12–20; TEMP 36.2–37.2; O2SAT 92–100
[2023-11-18] MEDS: PIPERACILLN/TAZ 3.375GM/NS50ML 3.375 GM/50 ML BAG IVPB ×2 (00:02→05:04)
[2023-11-18] MEDS: SODIUM CHLORIDE 0.9% IV 1,000 ML 75 ML IV CONT (03:57)
[2023-11-18 06:45] LABS: Basophils Absolute Auto 0.1 K/mm3 (0.0-0.1); Eosinophils Absolute Auto 0.7 K/mm3 (0-0.3); Eosinophils Percent Auto 8.4 % (0-4.4); Hematocrit 27.9 % (42.0-52.0); Hemoglobin 8.4 g/dL (14.0-18.0); Immature Granulocyte Absolute 0.03 K/mm3 (0.00-0.031); Immature Granulocyte Percent A 0.4 % (0-0.5); Lymphocytes Absolute Auto 1.85 K/mm3 (0.9-3.2); Lymphocytes Percent Auto 22.1 % (18.3-44.2); Mean Corpuscular HGB Conc 30.1 g/dl (32-36); Mean Corpuscular Hemoglobin 26.2 pg (26-34); Mean Corpuscular Volume 86.9 fl (80-100); Mean Platelet Volume 9.5 fl (7.4-10.4); Monocytes Percent Auto 11.8 % (2.6-8.5); Neutrophils Absolute Auto 4.7 K/mm3 (1.3-6.7); Neutrophils Percent Auto 56.3 % (45.5-73.1); Platelet Count Result 317 k/mm3 (150-375); Red Blood Count 3.21 M/mm3 (4.6-6.20); Red Cell Distribution Width 15.1 % (11.5-14.5); White Blood Count 8.4 K/mm3 (4.5-10.0)
[2023-11-18 06:51] LABS: Alanine Aminotransferase 23 U/L (6-50); Albumin Level 3.9 g/dL (3.5-5.1); Alkaline Phosphatase 99 U/L (38-126); Anion Gap 7 mmol/L (4-12); Aspartate Amino Transferase 30 U/L (17-59); Bilirubin,Total 0.7 mg/dL (0.2-1.3); Blood Urea Nitrogen 10 mg/dL (9-20); Calcium 8.9 mg/dL (8.4-10.2); Carbon Dioxide 22 mmol/L (22-30); Chloride 110 mmol/L (98-107); Estimated CRCL calculation 51 ml/min; Estimated Glomerular Filt Rate > 60; Glucose 94 mg/dL (65-110); Potassium 3.8 mmol/L (3.4-5.0); Sodium 139 mmol/L (137-145)
[2023-11-18 07:01] LABS: INR 1.6; Prothrombin Time 19.7 Seconds (11.1-14.7)
--- NOTE | 2023-11-18 08:03 | PC.NURSE ---
Pt. down to pre-op via bed.
--- NOTE | 2023-11-18 08:05 | P.PNIM_ITS ---
Progress Note: A&P Assessment and Plan (1) RUQ pain: Code(s): R10.11 - Right upper quadrant pain Status: Acute Assessment and Plan: 11/17/23: * Abdomen/pelvis CT shown gallbladder hydrops with possible impacted gallstone in the gallbladder neck, indeterminate 2.2 cm right adrenal lesion, mild urinary bladder wall thickening likely secondary to outlet obstruction from enlarged prostate * General surgery consulted * INR 2.3, patient was given a 1 time dose of phytonadione 5 mg * Plan to go to OR tomorrow for laparoscopic cholecystectomy * Continue pain control * Continue nausea control * NPO after midnight * Continue Zosyn 11/18/23: * Plan for surgery today * No change to current treatment plan (2) Cholelithiasis: Qualifiers: Biliary obstruction: without biliary obstruction Cholecystitis acuity: acute Cholecystitis presence: with cholecystitis Cholelithiasis location: gallbladder Qualified Code(s): K80.00 - Calculus of gallbladder with acute cholecystitis without obstruction Code(s): K80.20 - Calculus of gallbladder without cholecystitis without obstruction Status: Acute Assessment and Plan: 11/17/23: * See above (3) Afib: Qualifiers: Atrial fibrillation type: paroxysmal Qualified Code(s): I48.0 - Paroxysmal atrial fibrillation Code(s): I48.91 - Unspecified atrial fibrillation Status: Acute Assessment and Plan: 11/17/23: * Warfarin on hold * Received 1 dose of Phytonadione in the ER and got 1 unit FFP * Will recheck INR in the morning. (4) Chronic back pain: Code(s): M54.9 - Dorsalgia, unspecified; G89.29 - Other chronic pain Status: Chronic Assessment and Plan: 11/17/23: * Tylenol, [place], morphine ordered for pain control 11/18/23: * No change to current treatment plan (5) Gastroesophageal reflux disease: Qualifiers: Esophagitis presence: esophagitis presence not specified Qualified Code(s): K21.9 - Gastro-esophageal reflux disease without esophagitis Code(s): K21.9 - Gastro-esophageal reflux disease without esophagitis Status: Chronic Assessment and Plan: 11/17/23: * Continue Protonix 40 mg IV push q.12 hour 11/18/23: * No change to current treatment plan (6) Hypertension: Qualifiers: Hypertension type: essential hypertension Qualified Code(s): I10 - Essential (primary) hypertension Code(s): I10 - Essential (primary) hypertension Status: Chronic Assessment and Plan: 11/17/23: * Blood pressure ranging 156/68 to 162/75 * Continue amlodipine and losartan 11/18/23: * No change to current treatment flare (7) Hyperlipidemia: Code(s): E78.5 - Hyperlipidemia, unspecified Status: Chronic Assessment and Plan: 11/17/23: * Continue pravastatin 11/18/23: * No change to current treatment plan (8) Benign prostatic hyperplasia: Code(s): N40.0 - Benign prostatic hyperplasia without lower urinary tract symptoms Status: Chronic Assessment and Plan: 11/17/23: * Continue tamsulosin 11/18/23: * No change to current treatment plan Time Spent With Patient Time with patient: 15 - 25 minutes Subjective Date/time seen: 11/18/23 08:05 Interval history: Interval history: This is an 83-year-old male who presented to the ED on 11/16/2023 with complaints of abdominal pain. Workup in the hospital included CT of the abdomen pelvis which shows gallbladder hydrops with possible impact
--- NOTE | 2023-11-18 08:05 | PM.IMPN ---
Progress Note: A&P Assessment and Plan (1) RUQ pain: Code(s): R10.11 - Right upper quadrant pain Status: Acute Assessment and Plan: 11/17/23: Abdomen/pelvis CT shown gallbladder hydrops with possible impacted gallstone in the gallbladder neck, indeterminate 2.2 cm right adrenal lesion, mild urinary bladder wall thickening likely secondary to outlet obstruction from enlarged prostate General surgery consulted INR 2.3, patient was given a 1 time dose of phytonadione 5 mg Plan to go to OR tomorrow for laparoscopic cholecystectomy Continue pain control Continue nausea control NPO after midnight Continue Zosyn 11/18/23: Plan for surgery today No change to current treatment plan (2) Cholelithiasis: Qualifiers: Biliary obstruction: without biliary obstruction Cholecystitis acuity: acute Cholecystitis presence: with cholecystitis Cholelithiasis location: gallbladder Qualified Code(s): K80.00 - Calculus of gallbladder with acute cholecystitis without obstruction Code(s): K80.20 - Calculus of gallbladder without cholecystitis without obstruction Status: Acute Assessment and Plan: 11/17/23: See above (3) Afib: Qualifiers: Atrial fibrillation type: paroxysmal Qualified Code(s): I48.0 - Paroxysmal atrial fibrillation Code(s): I48.91 - Unspecified atrial fibrillation Status: Acute Assessment and Plan: 11/17/23: Warfarin on hold Received 1 dose of Phytonadione in the ER and got 1 unit FFP Will recheck INR in the morning. (4) Chronic back pain: Code(s): M54.9 - Dorsalgia, unspecified; G89.29 - Other chronic pain Status: Chronic Assessment and Plan: 11/17/23: Tylenol, Potter, morphine ordered for pain control 11/18/23: No change to current treatment plan (5) Gastroesophageal reflux disease: Qualifiers: Esophagitis presence: esophagitis presence not specified Qualified Code(s): K21.9 - Gastro-esophageal reflux disease without esophagitis Code(s): K21.9 - Gastro-esophageal reflux disease without esophagitis Status: Chronic Assessment and Plan: 11/17/23: Continue Protonix 40 mg IV push q.12 hour 11/18/23: No change to current treatment plan (6) Hypertension: Qualifiers: Hypertension type: essential hypertension Qualified Code(s): I10 - Essential (primary) hypertension Code(s): I10 - Essential (primary) hypertension Status: Chronic Assessment and Plan: 11/17/23: Blood pressure ranging 156/68 to 162/75 Continue amlodipine and losartan 11/18/23: No change to current treatment flare (7) Hyperlipidemia: Code(s): E78.5 - Hyperlipidemia, unspecified Status: Chronic Assessment and Plan: 11/17/23: Continue pravastatin 11/18/23: No change to current treatment plan (8) Benign prostatic hyperplasia: Code(s): N40.0 - Benign prostatic hyperplasia without lower urinary tract symptoms Status: Chronic Assessment and Plan: 11/17/23: Continue tamsulosin 11/18/23: No change to current treatment plan Time Spent With Patient Time with patient: 15 - 25 minutes Subjective Date/time seen: 11/18/23 08:05 Interval history: Interval history: This is an 83-year-old male who presented to the ED on 11/16/2023 with complaints of abdominal pain. Workup in the hospital included CT of the abdomen pelvis which shows gallbladder hydrops with possible impacted gallstone in the gallbladder neck, indeterminate 2.2 cm right adrenal lesion, mild urinary bladder wall thickening likely secondary to outlet obstruction from enlarged prostate. Initial labs revealed a white blood cell count of 10.5, hemoglobin 9.1, INR 2.2, otherwise unremarkable. UA was obtained and was negative. Blood cultures were obtained and are pending. Last echo was reviewed from 08/26/2021 which shown a normal LV systolic function with an estimated EF of 70-75%, m
[2023-11-18] MEDS: LACTATED RINGERS 1,000 ML 30 ML IV CONT ×3 (08:30→11:43)
--- NOTE | 2023-11-18 08:38 | WPDANESEPPF ---
Anes - Initial Pre Proc Eval Procedure: Operation Date: 11/18/23 08:30 Proposed Procedures p Laparoscopic Cholecystectomy - Scott Chávez MD Date/Time: 11/18/23 08:38 Surgeon: Melly Villa APRN Pre Op Diagnosis: Gallbladder hydrops, Cholelithiasis Patient Data Age: 83 Gender: M Height: 1.75 m Weight: 69.8 kg Last Vital Signs Temp 97.4 F L 11/18/23 05:12 Pulse 75 11/18/23 05:12 Resp 12 11/18/23 05:12 BP 157/81 H 11/18/23 05:12 Pulse Ox 97 11/18/23 05:12 O2 Del Method Room Air 11/17/23 23:24 Allergies Allergy/AdvReac Type Severity Reaction Status Date / Time Anesthetics - Jeannie Type- Allergy Unknown Verified 11/16/23 23:58 Parabens prochlorperazine AdvReac Nausea and Verified 11/16/23 23:58 Vomiting Home Medications Medication Instructions Recorded Confirmed Type losartan 100 mg tablet 100 mg PO DAILY 06/10/19 11/17/23 History pravastatin 40 mg tablet 40 mg PO DAILY 06/10/19 11/17/23 History vit C 250 mg-vit E 90 mg-zinc 40 2 tablet PO BIDWM 06/10/19 11/17/23 History mg-copper 1 it-[id number] capsule (PreserVision AREDS-2) amlodipine 5 mg tablet 5 mg PO DAILY 08/17/22 11/17/23 History omeprazole 20 mg capsule,delayed 20 mg PO DAILY 11/08/23 11/17/23 History release finasteride 5 mg tablet 5 mg PO DAILY 11/17/23 11/17/23 History tamsulosin 0.4 mg capsule 0.4 mg PO DAILY 11/17/23 11/17/23 History warfarin 5 mg tablet 7.5 mg PO DAILY 11/17/23 11/17/23 History Laboratory Tests 11/16/23 11/18/23 20:05 06:15 WBC 8.4 K/mm3 (4.5-10.0) RBC 3.21 L M/mm3 (4.6-6.20) Hgb 8.4 L g/dL (14.0-18.0) Hct 27.9 L % (42.0-52.0) MCV 86.9 fl (80-100) MCH 26.2 pg (26-34) MCHC 30.1 L g/dl (32-36) RDW 15.1 H % (11.5-14.5) Plt Count 317 k/mm3 (150-375) MPV 9.5 fl (7.4-10.4) Immature Gran % (Auto) 0.4 % (0-0.5) Neut % (Auto) 56.3 % (45.5-73.1) Lymph % (Auto) 22.1 % (18.3-44.2) [place] % (Auto) 11.8 H % (2.6-8.5) Eos % (Auto) 8.4 H % (0-4.4) Baso % (Auto) 1.0 % (0.2-1.2) Lymph # (Auto) 1.85 K/mm3 (0.9-3.2) [place] # (Auto) 1.0 H K/mm3 (0.1-0.6) Eos # (Auto) 0.7 H K/mm3 (0-0.3) Baso # (Auto) 0.1 K/mm3 (0.0-0.1) Abs Immat Gran (auto) 0.03 K/mm3 (0.00-0.031) Absolute Neuts (auto) 4.7 K/mm3 (1.3-6.7) Absolute Nucleated RBC 0.000 K/mm3 (0.0-0.012) Nucleated RBC % 0.0 % (0.0-0.2) PT 19.7 H D Seconds (11.1-14.7) INR 1.6 Sodium 139 mmol/L (137-145) Potassium 3.8 mmol/L (3.4-5.0) Chloride 110 H mmol/L (98-107) Carbon Dioxide 22 mmol/L (22-30) Anion Gap 7 mmol/L (4-12) BUN 10 D mg/dL (9-20) Creatinine 1.00 mg/dL (0.7-1.3) Estim Creat Clear Calc 51 ml/min Estimated GFR > 60 (59 - ) Glucose 94 mg/dL (65-110) Calcium 8.9 mg/dL (8.4-10.2) Total Bilirubin 0.7 mg/dL (0.2-1.3) AST 30 U/L (17-59) ALT 23 U/L (6-50) Alkaline Phosphatase 99 U/L (38-126) Total Protein 7.0 g/dL (6.3-8.2) Albumin 3.9 g/dL (3.5-5.1) Blood Type A Negative Antibody Screen Negative Patient hx anesthesia problems: none Family hx anesthesia problems: none Results Review: All pre-operative results and documents have been reviewed as part of the pre-operative evaluation. FORMERLY [facility] Past Medical History Medical History Abdominal aortic aneurysm Acute right ankle pain Aortic calcification Aortic stenosis Arthritis Arthritis of both hands Benign prostatic hyperplasia Bilateral carotid bruits Cellulitis Chronic anticoagulation Dizziness Erectile dysfunction due to arterial insufficiency Essential (primary) hypertension Gastroesophageal reflux disease Hyper
--- NOTE | 2023-11-18 08:42 | WPDHPUPDATE1 ---
History and Physical Update Update Date/Time: 11/18/23 08:42 History and Physical has been reviewed, including an updated exam of the patient. There are NO changes in the patient's condition. Risks, benefits, and alternatives have been discussed and questions answered. Patient agrees to proceed with procedure.
[2023-11-18] MEDS: BUPivacaine HCL 0.5% 10 ML AMP 30 ML INFILTRATE (09:26)
[2023-11-18] MEDS: LIDO 1%/EPINEPHRINE/PF 1:200,000 30 ML VIAL XX (09:26)
[2023-11-18] MEDS: CELLULOSE OXIDIZED 2 x 14 INCH 1 PKT XX (09:51)
--- NOTE | 2023-11-18 10:24 | W.PM.PROC2 ---
Procedure Note - Detailed Date of Procedure 11/18/23 Pre-op Diagnosis Acute cholecystitis secondary to cholelithiasis Post-op Diagnosis Same Procedure Performed Laparoscopic cholecystectomy Surgeon Scott Chávez MD [employer] Anesthesia General Indications Patient is an 83-year-old gentleman admitted to the hospital with a one-day history of worsening right upper quadrant epigastric abdominal pain social some nausea vomiting with eating. Was found to have cholecystitis with gallstones in the neck of the gallbladder. He was on Coumadin due to atrial fibrillation and so was admitted to the hospital and his Coumadin was held. He was given 2units of fresh frozen plasma to counteract Coumadin and then was placed on Zosyn for IV antibiotics. Blood cell count normalized on hospital day 2. His INR was 1.6 and so he was then taken to the operating for a laparoscopic cholecystectomy. Findings Gallbladder is distended and moderately inflamed. The wall was edematous. There were a few adhesions of the omentum to the gallbladder wall which were easily and bluntly stripped down. Gallstones were noted in the gallbladder. Description of Procedure After informed consent was obtained patient brought to the operating room was placed supine position and general endotracheal anesthesia was administered. The end was then prepped and draped usual sterile fashion. Time-out was then performed correctly identifying the patient as well as procedure to be performed. Was already on scheduled IV antibiotics. I did the abdomen left upper quadrant 5mm Optiview port. Then insufflated to adequate pneumoperitoneum of 15mmHg of CO2. No adhesions were noted in the area the umbilicus. A 5mm Optiview port was then placed in the umbilical position and then a 10mm epigastric trocar port and 2 right lateral subcostal 5mm trocar ports were then all placed under direct visualization. The gallbladder was seen in the right upper quadrant was distended with edema the gallbladder wall and a few inflammatory adhesions of omentum to the infundibular gallbladder. The gallbladder was held laparoscopic grasper and elevated over the right hand liver towards the right shoulder. A 2nd grasper was then used to hold the gallbladder at the infundibulum. I then bluntly stripped down the omental adhesions from the gallbladder wall. I then dissected down along the infundibulum of the gallbladder stripping down the visceral peritoneum until I could see the cystic duct. Cystic duct was then dissected out circumferentially. Cystic artery was identified and dissected out circumferentially as well. Posterior wall the gallbladder at the infundibulum dissected free of the liver until the critical view was obtained. I then placed 2 clips proximally cystic duct and 2 clips distally high on infundibular gallbladder. Cystic duct was then divided with Endo Tamara. In similar fashion cystic artery clipped and divided as well. Gallbladder is resected off the liver electrocautery. Unfortunately during the dissection the gallbladder was entered nursing spillage of noninfected appearing bile. Once the gallbladder was completely free from the liver is placed into an Endo-Catch bag and brought out through the epigastric port site. Gallbladder and contents were sent to pathology for examination. I then irrigated out the right upper quadrant the abdomen the gallbladder fossa copious amounts sterile saline solution. There was some oozing of blood from the gallbladder fossa which was treated electrocautery. Again the patient was on Coumadin had INR 1.6. I then applied some Surgicel to the gallbladder bed and then after I got good hemostasis I applied granulated Surgicel onto the gallbladder bed and removed the sheets of Surgicel. Hemostasis was good and then I aspirated the fluid from the right upper quadrant the abdomen from the pelvis. I then removed all the trocar ports under visualization all port sites
[2023-11-18] MEDS: MORPHINE SULFATE INJ (*CRX) 10 MG/ML AMP 2 MG IV PUSH ×3 (10:38→10:52)
[2023-11-18] MEDS: ONDANSETRON INJ 4 MG/2 ML VIAL IV PUSH (11:13)
[2023-11-18] MEDS: fentaNYL CITRATE INJ (*CRX) 100 MCG/2 ML VIAL 25 MCG IV PUSH ×2 (11:19→11:40)
[2023-11-18] MEDS: dexAMETHasone SOD PHOS INJ 4 MG/ML VIAL IV PUSH (12:32)
--- NOTE | 2023-11-18 13:00 | PC.NURSE ---
Pt. arrived back on floor to room 306 via bed at 12:51.
[2023-11-18] MEDS: HYDROcodone/acetaminophen (*CRX) 5-325 MG TABLET 1 TAB PO (18:43)
[2023-11-19] MEDS: SODIUM CHLORIDE 0.9% IV 1,000 ML 75 ML IV CONT
[2023-11-19 05:37] VITALS: BP 140/59; PULSE 68; RESP 14; TEMP 36.5; O2SAT 93
[2023-11-19] MEDS: oxyCODONE HCL (*CRX) 5 MG TAB IR PO (06:30)
[2023-11-19 07:53] LABS: Basophils Percent Auto 0.2 % (0.2-1.2); Eosinophils Percent Auto 0.1 % (0-4.4); Hemoglobin 7.9 g/dL (14.0-18.0); Immature Granulocyte Absolute 0.17 K/mm3 (0.00-0.031); Lymphocytes Absolute Auto 1.62 K/mm3 (0.9-3.2); Lymphocytes Percent Auto 9.1 % (18.3-44.2); Mean Corpuscular HGB Conc 30.4 g/dl (32-36); Mean Corpuscular Hemoglobin 26.3 pg (26-34); Mean Corpuscular Volume 86.7 fl (80-100); Mean Platelet Volume 9.2 fl (7.4-10.4); Monocytes Absolute Auto 1.9 K/mm3 (0.1-0.6); Monocytes Percent Auto 10.5 % (2.6-8.5); Neutrophils Absolute Auto 14.1 K/mm3 (1.3-6.7); Neutrophils Percent Auto 79.1 % (45.5-73.1); Platelet Count Result 308 k/mm3 (150-375); Red Cell Distribution Width 15.4 % (11.5-14.5); White Blood Count 17.8 K/mm3 (4.5-10.0)
[2023-11-19 08:04] LABS: Alanine Aminotransferase 22 U/L (6-50); Albumin Level 3.4 g/dL (3.5-5.1); Alkaline Phosphatase 87 U/L (38-126); Anion Gap 6 mmol/L (4-12); Aspartate Amino Transferase 30 U/L (17-59); Bilirubin,Total 0.5 mg/dL (0.2-1.3); Blood Urea Nitrogen 12 mg/dL (9-20); Calcium 8.5 mg/dL (8.4-10.2); Carbon Dioxide 23 mmol/L (22-30); Chloride 109 mmol/L (98-107); Estimated CRCL calculation 56 ml/min; Estimated Glomerular Filt Rate > 60; Glucose 104 mg/dL (65-110); Potassium 3.8 mmol/L (3.4-5.0); Sodium 138 mmol/L (137-145)
[2023-11-19] MEDS: LOSARTAN POTASSIUM 100 MG TABLET PO (09:24)
[2023-11-19] MEDS: PANTOPRAZOLE 40 MG TABLET PO (09:24)
[2023-11-19] MEDS: ONDANSETRON HCL ODT 4 MG TABLET PO (09:24)
[2023-11-19] MEDS: amLODIPine BESYLATE 5 MG TABLET PO (09:24)
[2023-11-19] MEDS: FINASTERIDE 5 MG TABLET PO (09:24)
[2023-11-19] MEDS: TAMSULOSIN HCL 0.4 MG CAPSULE PO (09:24)
[2023-11-19] MEDS: PRAVASTATIN SODIUM 20 MG TABLET 40 MG PO (09:24)
--- NOTE | 2023-11-19 09:45 | PM.DS ---
DS: Admitting Diagnosis Discharge Date 11/19/23 Admitting Diagnosis Right upper quadrant pain AFib Chronic back pain GERD DS: Discharge Diagnosis Discharge Diagnosis (1) RUQ pain: Code(s): R10.11 - Right upper quadrant pain Status: Acute Assessment and Plan: Right upper quadrant pain AFib Chronic back pain GERD (2) Cholelithiasis: Qualifiers: Biliary obstruction: without biliary obstruction Cholecystitis acuity: acute Cholecystitis presence: with cholecystitis Cholelithiasis location: gallbladder Qualified Code(s): K80.00 - Calculus of gallbladder with acute cholecystitis without obstruction Code(s): K80.20 - Calculus of gallbladder without cholecystitis without obstruction Status: Acute (3) Afib: Qualifiers: Atrial fibrillation type: paroxysmal Qualified Code(s): I48.0 - Paroxysmal atrial fibrillation Code(s): I48.91 - Unspecified atrial fibrillation Status: Acute (4) Chronic back pain: Code(s): M54.9 - Dorsalgia, unspecified; G89.29 - Other chronic pain Status: Chronic (5) Gastroesophageal reflux disease: Qualifiers: Esophagitis presence: esophagitis presence not specified Qualified Code(s): K21.9 - Gastro-esophageal reflux disease without esophagitis Code(s): K21.9 - Gastro-esophageal reflux disease without esophagitis Status: Chronic (6) Hypertension: Qualifiers: Hypertension type: essential hypertension Qualified Code(s): I10 - Essential (primary) hypertension Code(s): I10 - Essential (primary) hypertension Status: Chronic (7) Hyperlipidemia: Code(s): E78.5 - Hyperlipidemia, unspecified Status: Chronic (8) Benign prostatic hyperplasia: Code(s): N40.0 - Benign prostatic hyperplasia without lower urinary tract symptoms Status: Chronic DS: Summary Hospital Course Reason for hospitalization: Right upper quadrant pain AFib Chronic back pain GERD Hospital Course: This is an 83-year-old male who presented to the ED on 11/16/2023 with complaints of abdominal pain. Workup in the hospital included CT of the abdomen pelvis which shows gallbladder hydrops with possible impacted gallstone in the gallbladder neck, indeterminate 2.2 cm right adrenal lesion, mild urinary bladder wall thickening likely secondary to outlet obstruction from enlarged prostate. Initial labs revealed a white blood cell count of 10.5, hemoglobin 9.1, INR 2.2, otherwise unremarkable. UA was obtained and was negative. Blood cultures were obtained and are pending. Last echo was reviewed from 08/26/2021 which shown a normal LV systolic function with an estimated EF of 70-75%, moderate aortic stenosis, diastolic dysfunction. Patient was given morphine, Zofran, Protonix, and Zosyn while in the ED. general surgery was consulted. Patient had a laparoscopic cholecystectomy with General surgery on 11/18/2023. He had some postoperative nausea and vomiting however that has subsided. His vital signs are stable, he is afebrile, he is on room air. He states that his pain is minimal. Patient is stable for discharge at this time. He will need to follow up with General surgery in 2 weeks. Final diagnosis: Cholelithiasis Status at Discharge Cognitive/behavioral status at discharge: Alert and oriented x3 Functional status at discharge: independent ambulation Overall status at discharge: patient is progressing back to baseline Time Spent with Patient Time attestation: Total time spent providing and/or coordinating discharge services: Time spent: Greater than 30 minutes Exam Narrative: General: In no acute distress, well nourished Cardiac: Normal S1 and S2. RRR, Murmur noted. No gallops or friction rubs, peripheral pulses intact. Respiratory: Lungs clear to auscultation, no adventitious lung sounds, currently on room air Gastrointestinal: soft, non-distended,nontender, normoactive bowel vashti
--- NOTE | 2023-11-19 11:30 | WPDPN ---
Progress Note: A&P Assessment and Plan (1) Acute calculous cholecystitis: Code(s): K80.00 - Calculus of gallbladder with acute cholecystitis without obstruction Status: Acute Assessment and Plan: Doing well postop day 1 after laparoscopic cholecystectomy for acute cholecystitis secondary to cholelithiasis. Go ahead advanced diet to solid food today. If he tolerates solid food he can be discharged home. Follow-up discharge instructions as per my discharge orders. Subjective Date/time seen: 11/19/23 11:30 Interval history: Patient is doing very well this morning. Had some mild nausea 1st thing this morning which resolved with 1 dose of oral Zofran. He is waiting for solid food for lunch. Minimal pain using only some Tylenol orally for pain. Exam GI: Other: Abdomen is soft and nondistended. Port sites are healing well. Minimal ecchymosis around the umbilical port site. No redness or drainage no bleeding. Objective Data Vital Signs Vital Signs: Vital Signs - 24 hr 11/18/23 11:35 11/18/23 11:50 11/18/23 12:05 Temperature Pulse Rate 78 80 82 Respiratory Rate 14 20 20 Blood Pressure 172/75 H 176/80 H 174/88 H Pulse Oximetry 99 98 99 Oxygen Delivery Nasal Cannula Nasal Cannula Nasal Cannula Oxygen Flow Rate 3 3 3 11/18/23 12:20 11/18/23 12:35 11/18/23 14:34 Temperature Pulse Rate 77 86 Respiratory Rate 18 17 Blood Pressure 183/84 H 176/85 H Pulse Oximetry 99 99 93 Oxygen Delivery Nasal Cannula Nasal Cannula Nasal Cannula Oxygen Flow Rate 3 3 3 11/18/23 14:44 11/18/23 12:55 11/18/23 13:10 Temperature 36.2 C L 36.3 C L Pulse Rate 90 90 Respiratory Rate 16 18 Blood Pressure 182/66 H 151/62 H Pulse Oximetry 95 95 92 Oxygen Delivery Room Air Oxygen Flow Rate 11/18/23 13:40 11/18/23 14:40 11/18/23 17:09 Temperature 36.6 C 37.2 C Pulse Rate 60 87 Respiratory Rate 16 18 Blood Pressure 164/52 H 150/63 H Pulse Oximetry 92 97 92 Oxygen Delivery Room Air Oxygen Flow Rate 11/18/23 18:39 11/18/23 20:00 11/18/23 20:00 Temperature 36.9 C 36.8 C Pulse Rate 88 88 Respiratory Rate 20 17 Blood Pressure 188/78 H 161/73 H Pulse Oximetry 93 96 96 Oxygen Delivery Room Air Oxygen Flow Rate 11/19/23 05:37 Temperature 36.5 C Pulse Rate 68 Respiratory Rate 14 Blood Pressure 140/59 L Pulse Oximetry 93 Oxygen Delivery Oxygen Flow Rate Intake/Output Intake/Output: Intake & Output 11/16/23 11/17/23 11/18/23 11/19/23 23:59 23:59 23:59 23:59 Intake Total 3015 3230.0 1050 Output Total 450 2250 Balance 2565 980.0 1050 Meds/Results Medications: Active Medications Generic Name Dose Route Start Last Admin Trade Name Freq PRN Reason Stop Dose Admin Acetaminophen 1,000 mg 11/18/23 12:53 Acetaminophen 500 Mg Tablet PO Q6H PRN Mild Pain (1-3) or Fever Hydrocodone Bitart/Acetaminophen 1 tab 11/18/23 12:53 11/18/23 18:43 Hydrocodone/Acetaminophen (*Crx) 5-325 Mg Tablet PO 1 tab Q4H PRN Administration Pain Rated 4-6 Amlodipine Besylate 5 mg 11/18/23 09:00 11/19/23 09:24 Amlodipine Besylate 5 Mg Tablet PO 5 mg DAILY ELE Administration Finasteride 5 mg 11/19/23 09:00 11/19/23 09:24 Finasteride 5 Mg Tablet PO 5 mg DAILY ELE Administration Losartan Potassium 100 mg 11/18/23 09:00 11/19/23 09:24 Losartan Potassium 100 Mg Tablet PO 100 mg DAILY ELE Administration Morphine Sulfate 2 mg 11/18/23 12:53 Morphine Sulfate (*Crx) 2 Mg/Ml Inj IV PUSH Q4H PRN Pain Rated 7-10 Ondansetron HCl 4 mg 11/19/23 07:45 11/19/23 09:24 Ondansetron Hcl Odt 4 Mg Tablet PO 4 mg Q6H PRN Administration Nausea And Vomiting Oxycodone HCl 5 mg 11/18/23 12:53 11/19/23 06:30 Oxycodone Hcl (*Crx) 5 Mg Tab Ir PO 5 mg Q6H PRN Administration Pain Rated 7-10 Pantoprazole Sodium 40 mg 11/19/23 09:00 11/19/23 09:24 Pantoprazole 40 Mg Tablet PO 40
== END 2023-11-19 13:32 | disposition home or self-care (01) | DRG 418 ==
LOC: ANHED 18:09 → ANH3MEDSUR 23:16
PROVIDERS: Emergency Medicine; Surgery; Admitting Provider Internal Medicine; Emergency Provider Physician Assistant; PCP Emergency Medicine; Visit Provider Nurse Practitioner Acute Care
PROC: 0FT44ZZ Resection of Gallbladder, Percutaneous Endoscopic Approach (ICD-10-PCS; CPT 47562; principal; 2023-11-18 08:30)
DX: K80.00 Calculus of gallbladder with acute cholecystitis without obstruction (principal); K82.1 Hydrops of gallbladder; I48.91 Unspecified atrial fibrillation; E78.5 Hyperlipidemia, unspecified; E55.9 Vitamin D deficiency, unspecified; G89.29 Other chronic pain; I48.0 Paroxysmal atrial fibrillation; I10 Essential (primary) hypertension; K21.9 Gastro-esophageal reflux disease without esophagitis; M54.9 Dorsalgia, unspecified; N40.0 Benign prostatic hyperplasia without lower urinary tract symptoms; Z95.0 Presence of cardiac pacemaker; Z87.891 Personal history of nicotine dependence; Z79.01 Long term (current) use of anticoagulants
CPT/HCPCS: 36415; 36430; 74177; 80053; 81003; 83605; 83690; 85025; 85610; 85730; 86850; 86900; 86901; 87040; 88304; 96365; 96375; 96376; 99285; A9270; C9113; G0378; J1100; J2270; J2405; J2543; J3010; J7030; J7050; J7120; P9017; Q9967

== ENCOUNTER 2023-12-07 10:20 | Outpatient (CLI) | payer MEDICARE, SELFPAY ==
--- NOTE | ~2023-12-07 | XR_ITS ---
3 VIEWS LUMBAR SPINE Ordering provider: Mikey Olivera MD History: . M54.9 - Dorsalgia, unspecified, chronic . Comparison: None. FINDINGS: VERTEBRAL BODIES:Anterolisthesis at the level of L5-S1 with spondylolysis. No visible fracture or emmanuel bluxation. Degenerative changes of the spine. DISK SPACES: Narrowing of the disc L1-L2 and L5-S1. Facet joint disease at the level of L4-L5 and L5-S1. SOFT TISSUES: Vascular calcifications. Right sacroiliitis. IMPRESSION: No acute osseous abnormality lumbar spine. Spondylolisthesis at the level of L5-S1 with spondylolysis. Reviewed, dictated and finalized at location A.
== END 2023-12-07 10:21 | disposition home or self-care (01) ==
PROVIDERS: PCP Emergency Medicine; Visit Provider Emergency Medicine
DX: M43.17 Spondylolisthesis, lumbosacral region (principal); G89.29 Other chronic pain
CPT/HCPCS: 72100

== ENCOUNTER 2024-01-10 10:32 | Outpatient (CLI) | payer MEDICARE, SELFPAY ==
[2024-01-10 11:13] LABS: Basophils Absolute Auto 0.1 K/mm3 (0.0-0.1); Basophils Percent Auto 0.7 % (0.2-1.2); Eosinophils Absolute Auto 0.3 K/mm3 (0-0.3); Eosinophils Percent Auto 3.5 % (0-4.4); Hematocrit 33.3 % (42.0-52.0); Hemoglobin 9.3 g/dL (14.0-18.0); Immature Granulocyte Absolute 0.02 K/mm3 (0.00-0.031); Immature Granulocyte Percent A 0.2 % (0-0.5); Lymphocytes Absolute Auto 1.92 K/mm3 (0.9-3.2); Lymphocytes Percent Auto 21.9 % (18.3-44.2); Mean Corpuscular HGB Conc 27.9 g/dl (32-36); Mean Corpuscular Hemoglobin 22.9 pg (26-34); Mean Corpuscular Volume 81.8 fl (80-100); Mean Platelet Volume 9.6 fl (7.4-10.4); Monocytes Absolute Auto 0.9 K/mm3 (0.1-0.6); Monocytes Percent Auto 10.3 % (2.6-8.5); Neutrophils Absolute Auto 5.6 K/mm3 (1.3-6.7); Neutrophils Percent Auto 63.4 % (45.5-73.1); Platelet Count Result 394 k/mm3 (150-375); Red Blood Count 4.07 M/mm3 (4.6-6.20); Red Cell Distribution Width 16.5 % (11.5-14.5); White Blood Count 8.8 K/mm3 (4.5-10.0)
[2024-01-10 11:24] LABS: Anion Gap 10 mmol/L (4-12); Blood Urea Nitrogen 15 mg/dL (9-20); Calcium 9.2 mg/dL (8.4-10.2); Carbon Dioxide 23 mmol/L (22-30); Chloride 105 mmol/L (98-107); Cholesterol 123 mg/dL (0-200); Estimated Glomerular Filt Rate > 60; Glucose 92 mg/dL (65-110); HDL Direct 37 mg/dL; INR 2.2; Magnesium 2.1 mg/dL (1.6-2.3); Potassium 4.2 mmol/L (3.4-5.0); Prothrombin Time 24.7 Seconds (11.1-14.7); Sodium 138 mmol/L (137-145); Triglycerides 177 mg/dL (<150)
[2024-01-10 11:38] LABS: Anisocytosis 1+; Platelet Estimate Increased (Adequate); Schistocytes None Seen
[2024-01-10 11:41] LABS: LDL Cholesterol Direct 52 mg/dL
== END 2024-01-10 10:33 | disposition home or self-care (01) ==
LOC: ANHLAB 10:34
PROVIDERS: PCP Emergency Medicine; Visit Provider Internal Medicine Cardiovascular Disease
DX: R09.89 Other specified symptoms and signs involving the circulatory and respiratory systems (principal); Z95.0 Presence of cardiac pacemaker; R42 Dizziness and giddiness; I45.9 Conduction disorder, unspecified; I49.3 Ventricular premature depolarization; I35.0 Nonrheumatic aortic (valve) stenosis; I48.91 Unspecified atrial fibrillation; I48.92 Unspecified atrial flutter; I10 Essential (primary) hypertension
CPT/HCPCS: 36415; 80048; 80061; 83735; 85025; 85610

== ENCOUNTER 2024-05-20 10:22 | Outpatient (CLI) | payer MEDICARE, SELFPAY ==
[2024-05-20 11:18] LABS: Alanine Aminotransferase 30 U/L (6-50); Albumin Level 3.7 g/dL (3.5-5.1); Alkaline Phosphatase 86 U/L (38-126); Anion Gap 0 mmol/L (4-12); Aspartate Amino Transferase 38 U/L (17-59); Bilirubin,Total 0.4 mg/dL (0.2-1.3); Blood Urea Nitrogen 21 mg/dL (9-20); Carbon Dioxide 26 mmol/L (22-30); Chloride 110 mmol/L (98-107); Cholesterol 131 mg/dL (0-200); Estimated Glomerular Filt Rate > 60; Glucose 78 mg/dL (65-110); HDL Direct 33 mg/dL; Potassium 4.5 mmol/L (3.4-5.0); Sodium 136 mmol/L (137-145); Triglycerides 241 mg/dL (<150)
[2024-05-20 11:20] LABS: INR 2.1
[2024-05-20 11:29] LABS: LDL Cholesterol Direct 51 mg/dL
[2024-05-20 11:36] LABS: Vitamin D 25 Hydroxy 59.6 ng/mL
== END 2024-05-20 10:23 | disposition home or self-care (01) ==
PROVIDERS: Internal Medicine Cardiovascular Disease; PCP Emergency Medicine; Visit Provider Emergency Medicine
DX: E78.5 Hyperlipidemia, unspecified (principal); E55.9 Vitamin D deficiency, unspecified
CPT/HCPCS: 36415; 80053; 80061; 82306; 85610

== ENCOUNTER 2024-07-05 10:30 | Outpatient (RCR) | payer MEDICARE, SELFPAY ==
[2024-06-07 11:48] LABS: INR 2.2; Prothrombin Time 25.3 Seconds (11.1-14.7)
[2024-07-05 11:28] LABS: INR 2.5; Prothrombin Time 27.3 Seconds (11.1-14.7)
== END 2024-08-18 23:59 | disposition home or self-care (01) ==
LOC: ANHLAB 10:30
PROVIDERS: PCP Emergency Medicine; Visit Provider Internal Medicine Cardiovascular Disease
DX: I48.91 Unspecified atrial fibrillation (principal); I48.92 Unspecified atrial flutter
CPT/HCPCS: 36415; 85610

== ENCOUNTER 2024-10-31 12:12 | Outpatient (CLI) | payer MEDICARE, SELFPAY ==
[2024-10-31 12:46] LABS: INR 3.2; Prothrombin Time 31.2 Seconds (11.1-14.7)
--- OUTSIDE RECORDS SUMMARY | 2024-10-31 12:51 | XMS_ITS | Referral Summary ---
Author Organization [facility] [address] Address [address] [place] [address] Care Team Providers Care Dispatch Officer Name Role Phone Mikey Olivera MD Primary Care Provide r Nuris Thompson MD Unavailable [phone] Ramos Fong MD Unavailable Encounters Date Type Department Care Team Description 09/05/2024 12:25 PM CDT Lab [address] [address] from Last 3 Months Allergies Active Allergy Reactions Criticality Noted Date Comments Anesthetics - Jeannie Type- Parabens Nausea & Vomiting Low Prochlorperazine Nausea & Vomiting Medium Medications losartan (COZAAR) 100 mg tabletIndication s:hypertension Take 1 tablet (100 mg total) by mouth nightly 9 Active tamsulosin (FLOMAX) 0.4 mg extended release capsuleIndicatio ns:benign prostatic hyperplasia with lower urinary tract sx Take 1 capsule (0.4 mg total) by mouth daily 2 Active acetaminophen 500 mg capsuleIndicatio ns:Pain Take 2 capsules (1,000 mg total) by mouth every 6 (six) hours 60 tablet 1 2 Active sildenafiL (VIAGRA) 50 mg tablet TAKE 1 TABLET BY MOUTH NEEDED FOR ERECTILE DYSFUNCTION 15 tablet 1 3 Active pravastatin (PRAVACHOL) 40 mg tabletIndication s:Hypercholester emia TAKE 1 TABLET BY MOUTH DAILY GENERIC EQUIVALENT FOR PRAVACHOL 90 tablet 3 4 Active cholecalciferol (VITAMIN D-3) 2000 unit capsule Take 2 capsules (4,000 Units total) by mouth daily 4 Active finasteride (PROSCAR) 5 mg tablet Take 1 tablet (5 mg total) by mouth daily 4 Active omeprazole (PriLOSEC) 20 mg capsule Take 1 capsule (20 mg total) by mouth nightly 4 Active multivitamin with iron tablet Take 1 tablet by mouth daily Active aspirin 81 mg chewable tabletIndication s:coronary artery disease Take 1 tablet (81 mg total) by mouth daily 30 tablet 11 4 04/03/20 25 Active warfarin (COUMADIN) 5 mg tablet TAKE 1&1/2 TABLETS BY MOUTH EVERY DAY *HAVE INR DRAWN PRIOR TO NEXT REFILL* 21 tablet 4 Active amLODIPine (NORVASC) 5 mg tabletIndication s:Uncontrolled hypertension Take 1 tablet (5 mg total) by mouth daily 90 tablet 3 5 07/08/19 26 Active Active Problems Problem Noted Date Diagnosed Date Delirium 04/03/2024 S/p TAVR (transcatheter aort ic valve replacement), 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 Dx; PAF, Presynope, Bradycardia. DOI 10/22/2019-[facility]. Plexxronik remote home monitoring. Near syncope 10/18/2019 Nonsustained ventricular tachycardia (CMS/HCC) 0 10/18/2019 Chronic anticoagulation 11/11/2016 History of atrial flutter 10/20/2016 Overview (10/21/2016): H/O atrial flutter Hypercholesterolemia 10/20/2016 Overview (10/21/2016): Hypercholesteremia Noncompliance with treatment 10/29/2015 Overview (08/26/2016): Noncompliance History of radiofrequency ab lation (RFA) procedure for cardiac arrhythmia 10/29/2015 Overview (08/26/2016): History of radiofrequency ablation procedure for cardiac arrhythmia Paroxysmal atrial fibrillation (CMS/HCC) 016 Overview (08/26/2016): PAF (paroxysmal atrial fibrillation) Essential hypertension 10/29/2015 Overview (08/26/2016): Essential hypertension Nonrheumatic aortic valve stenosis 10/29/2015 Overview (08/26/2016): Aortic valve stenosis, nonrheumatic Pure hypercholesterolemia 03/26/2012 Overview (08/26/2016): PURE HYPERCHOLESTEROLEM Resolved Problems Problem Noted Date Diagnosed Date Resolved Date At risk for obstructive sleep apnea 08/30/2021 09/20/2022 Right shoulder pain 08/16/2021 09/21/19 23 Overview (08/16/2021): Added automatically from request for surgery [id number] Visit for wound check 10/29/20192022 Postural dizziness with presyncope 12/30/2018 10/18/2019 History of open heart surgery 10/20/2016 08/17/2021 Overview (10/21/2016): S/P ablation of atrial fibrillation emt intermediate current use of ant icoagulant therapy 10/29/2015 12/30/2018 Overview (08/26/2016): Chronic anticoagulation Aortic valve stenosis 08/19/20132019 Overview (08/27/2016): Aortic stenosis, mild Hypertension 08/19/2013 10/18/2019 Overview (08/27/2016): HTN (hypertension) Atrial fibrillation 03/26/2012 10/18/19 20 Overview (08/26/2016): ATRIAL FIBRILLATION Atrial flutter 03/26/2012 12/30/2018 Overview (08/27/2016): ATRIAL FLUTTER Drug intolerance 03/26/2012 03/14/2022 Overview (08/26/2016): Statin intolerance History of anticoagulant therapy 03/26/2012 12/30/2018 Overview (08/26/2016): LONG-TERM USE ANTICOAGUL Postprocedural state 03/26/2012 020 Overview (08/26/2016): Status post ablation of atrial fibrillation Benign hypertension 03/26/2012 04/12/20 19 Overview (08/26/2016): BENIGN HYPERTENSION Social History Tobacco Use Types Packs/Day Years Used Date Smoking Tobacco: Former Cigarettes Q uit: 08/04/1995 Smokeless Tobacco: Never Tobacco Cessation:Counseling Given: Not Answered Alcohol Use Standard Drinks/Week Comments No 0 (1 standard drink = 0.6 oz pur e alcohol) AUDIT-C Answer Date Recorded Q1: How often do you have a drink containing alcohol? Never 04/01/2024 Q2: How many drinks containi ng alcohol do you have on a typical day when you are drinking? Patient does not drink Q3: How often do you have si x or more drinks on one occasion? Never 04/01/2024 Personal Safety Answer Date Recorded Have you ever been in or are you currently in a harmful physical or emotional relationship or is someone making you feel afraid or unsafe? Denies 04/01/2024 Sex and Gender Information Value Date Recorded Sex Assigned at Not on file Legal Sex Male 8:20 AM [employer] ATTENDANT Gender Identity Not on file Sexual Orientation Not on file Last Filed Vital Signs Vital Sign Reading Time Taken Comments Blood Pressure 162/73 04/03/2024 7:48 AM [employer] P[employer] ATTENDANT Pulse 61 04/03/2024 7:48 AM [employer] PARK ATTENDANT Temperature 36.7 C (98 F) 04/03/2024 7:48 AM [employer] PARK ATTENDANT Respiratory Rate 18 04/03/2024 7:48 AM [employer] PARK ATTENDANT Oxygen Saturation 100% 04/03/2024 7:48 AM [employer] PARK ATTENDANT Inhaled Oxygen Concentration - - Weight 70.2 kg (154 lb 12.8 oz) 04/02/2024 6:00 AM [employer] PARK ATTENDANT Height 177.8 cm (5' 10) 04/01/2024 6:57 AM [employer] PARK ATTENDANT Body Mass Index 22.21 04/01/2024 6:57 AM [employer] PARK ATTENDANT Plan of Treatment Not on file Medical Devices Implanted Type Area Political Science Faculty Member Device Identifier Shelf Expiration Date Model / Serial / Lot Biotronik Ra Lead [id number] Implanted:Sedrick Hand MD (Quantity not on file) Lead Heart Biotronik [id number] / [id number] / Biotronik Rv Lead [id number] Implanted:Sedrick Hand MD (Quantity not on file) Lead Heart Biotronik [id number] / [id number] / Biotronik Pm Edora 8 Dr-T-05/24/2022 Implanted:05/24 by Sedrick Pan MD (Quantity not on file) Pacemaker Chest Wall Biotronik [id number] / [id number] / Loop Recorder Left: Chest Wall Depuy [employer] Delta Xtend Shoulder +9mm Spacer Humeral Sterile [id number] - [id number] Implanted:Qty: 1 on 09/07/2021 by Marcus Hernández MD at [facility] Right: Shoulder [employer] [id number] 08/19/2025 [id number] / / [id number] Depuy [employer] Delta Xtend 4.5mm 36mm Lock Shoulder Glenoid Screw Bone Metaglene [id number] - [id number] Implanted:Qty: 1 on 09/07/2021 by Marcus Hernández MD at [facility] Right: Shoulder [employer]uy [employer] Inc [id number] 05/21/2026 [id number] / / [id number] Depuy Synthes [employer] [id number] Metaglene 10mm Long Peg Fixation - [id number] Implanted:Qty: 1 on 09/07/2021 by Marcus Hernández MD at [facility] Right: Shoulder Depuy [employer] [id number] 03/21/2026 [id number] / / [id number] Dep[employer] Delta Xtend 4.5mm 30mm Lock Shoulder Glenoid Screw Bone Metaglene [id number] - [id number] Implanted:Qty: 1 on 09/07/2021 by Marcus Hernández MD at [facility] Right: Shoulder [employer] [id number] 05/21/2025 [id number] / / [id number] Depuy [employer] [id number] Component Glenoid Delta Xtend +6mm Od42mm - [id number] Implanted:Qty: 1 on 09/07/2021 by Marcus Hernández MD at [facility] Right: Shoulder [employer] [id number] 07/20/2023 [id number] / / [id number] Dep[employer] Delta Xtend 4.5mm 42mm Lock Shoulder Glenoid Screw Bone Metaglene [id number] - [id number] Implanted:Qty: 1 on 09/07/2021 by Marcus Hernández MD at [facility] Right: Shoulder [employer]uy [employer] [id number] 05/21/2026 [id number] / / [id number] Depuy Orthopaed[employer] Global Unite 14mm 129mm Modular Shoulder Standard Stem Humeral [id number] - [id number] Implanted:Qty: 1 on 09/07/2021 by Marcus Hernández MD at [facility] Right: Shoulder [employer]uy [employer] [id number] 06/21/2031 [id number] / / [id number] Depuy Orth[employer]ed[employer] Inc [id number] Implant Shldr Xtend Modecc 145epi Por Sz1 Rt - [id number] Implanted:Qty: 1 on 09/07/2021 by Marcus Hernández MD at [facility] Right: Shoulder [employer] [id number] 06/21/2030 [id number] / / [id number] Depuy [employer] Delta Xtend 42mm Shoulder +3mm Standard Cup Humeral Polyethylene Latex Free [id number] - [id number] Implanted:Qty: 1 on 09/07/2021 by Marcus Hernández MD at [facility] Right: Shoulder [employer]uy [employer] [id number] 03/21/2026 [id number] / / [id number] [employer] System Closure Repair Femoral Artery Suture Mediated Perclose Prostyle 30395-57 - [id number] Implanted:Qty: 1 on 04/01/2024 by Nuris Thompson MD at [facility] [employer] 12/19/2025 [id number] / / [id number] R[employer] System Closure Repair Femoral Artery Suture Mediated Perclose Prostyle 36822-00 - [id number] Implanted:Qty: 1 on 04/01/2024 by Nuris Thompson MD at [facility] [employer] 12/19/2025 [id number] / / [id number] Tovar Lif[employer]iences Daly 3 Commander Tovar 26mm Transcatheter Ultra Low Profile [id number] - [id number] - [id number] Implanted:Qty: 1 on 04/01/2024 by Nuris Thompson MD at [facility] [employer] 10/25/2026 [id number] / [id number] / [employer] Yann Angio-Seal Vip 6fr Closere Device [id number] - [id number] Implanted:Qty: 1 on 04/01/2024 by Nuris Thompson MD at [facility] [email or web address] Yann [id number] / / Procedures Procedure Name Priority Date/Time Associated Diagnosis Comments EGFR Routine 09/05/2024 12:31 PM CDT DIFFERENTIAL AUTO Routine 09/05/2024 12: 31 PM CDT IRON PROFILE W/ IBC Routine 09/05/2024 1 2:31 PM CDT FERRITIN Routine 09/05/2024 12:31 PM CDT CBC WITH AUTO DIFFERENTIAL Routine 09/05/2024 12:31 PM CDT VITAMIN D 25 HYDROXY Routine 09/05/2024 12:31 PM CDT LIPID PANEL Routine 09/05/2024 12:31 PM CDT COMPREHENSIVE METABOLIC PANEL Routine 09/05/2024 12:31 PM CDT T3, FREE Routine 09/05/2024 12:31 PM CDT T4, FREE Routine 09/05/2024 12:31 PM CDT TSH Routine 09/05/2024 12:31 PM CDT from Last 3 Months Results * eGFR (09/05/2024 12:31 PM CDT) eGFR 87 >=60 mL/min/1. 73 m2 Comment: Interpretive Data Reference Interval Normal >/= 90 mL/min/1.73m2 Mildly decreased* 60 - 89 mL/min/1.73m2 Mildly to moderately decreased 45 - 59 mL/min/1.73m2 Moderately to severely decreased 30 - 44 mL/min/1.73m2 Severely decreased 15 - 29 mL/min/1.73m2 Kidney Failure < 15 mL/min/1.73m2 *Relative to young adult level Estimated glomerular filtration rate is determined by the 2020 CKD-EPI equation recommended by the National Kidney Foundation (A Unifying Approach to GFR Estimation: Recommendations of the NKF-ASK Task Force on Reassessing the Inclusion of Race in Diagnosing Kidney Disease, JASN 2020). The CKD-EPI equation should not be used for patients with unstable renal function and has not been validated in children and those over 70. Current interpretive data was last reviewed 2021. Blood 09/05/2024 12:3 1 PM CDT 09/05/2024 7:22 PM CDT Nuris Thompson MD LAB BLOOD ORDERABLES F inal Result [facility] [address] [facility] Department [place] [address] * (ABNORMAL) Differential, auto (09/05/2024 12:31 PM CDT) Neutrophil abs 6.01 1.50 - 6.50 K/cumm Imm gran abs 0.04 0.00 - 0.10 K/cumm [facility] Lymphocyte abs 2.70 0.80 - 3.30 K/cumm [facility] Monocyte abs 0.87(H) 0.20 - 0.80 K/cumm [facility] Eosinophil abs 0.38 0.00 - 0.50 K/cumm [facility] Basophil abs 0.07 0.00 - 0.10 K/cumm [facility] Neutrophil pct 59.7 % [facility] Comment: Interpretive Data Percent cell count reference ranges are not reported, since discordance with absolute values may lead to misinterpretation of CBC data. Current Interpretive Data was last revised on 2017. Imm gran pct 0.4 % [facility] Comment: Interpretive Data Percent cell count reference ranges are not reported, since discordance with absolute values may lead to misinterpretation of CBC data. Current Interpretive Data was last revised on 2017. Lymphocyte pct 26.8 % [facility] Comment: Interpretive Data Percent cell count reference ranges are not reported, since discordance with absolute values may lead to misinterpretation of CBC data. Current Interpretive Data was last revised on 2017. Monocyte pct 8.6 % [facility] Comment: Interpretive Data Percent cell count reference ranges are not reported, since discordance with absolute values may lead to misinterpretation of CBC data. Current Interpretive Data was last revised on 2017. Eosinophil pct 3.8 % [facility] Comment: Interpretive Data Percent cell count reference ranges are not reported, since discordance with absolute values may lead to misinterpretation of CBC data. Current Interpretive Data was last revised on 2017. Basophil pct 0.7 % [facility] Comment: Interpretive Data Percent cell count reference ranges are not reported, since discordance with absolute values may lead to misinterpretation of CBC data. Current Interpretive Data was last revised on 2017. Blood 09/05/2024 12:3 1 PM CDT 09/05/2024 6:46 PM CDT Nuris Thompson MD LAB BLOOD ORDERABLES F inal Result Performing Organization Address City/[facility]/ZIP Co de Phone Number THERESA SOLIS [address] [place] [address] * (ABNORMAL) Iron profile w/ IBC (09/05/2024 12:31 PM CDT) Iron 22(L) 50 - 150 mcg/dl TIBC 470(H) 250 - 400 mcg/dL [facility] Transferrin saturation 5(L) 20 - 50 % [facility] Blood 09/05/2024 12:3 1 PM CDT 09/05/2024 6:46 PM CDT Nuris Thompson MD LAB BLOOD ORDERABLES F inal Result Performing Organization Address [facility] de Phone Number THERESA SOLIS [address] [place] [address] * (ABNORMAL) CBC with auto differential (09/05/2024 12:31 PM CDT) WBC 10.07(H) 3.80 - 9.90 K/cumm Hgb 9.1(L) 13.0 - 17.5 g/dL [facility] Hct 33.7(L) 38.9 - 50.3 % [facility] Plt 407(H) 150 - 400 K/cumm [facility] MPV 9.9 9.1 - 12.3 fL [facility] RBC 4.17(L) 4.30 - 5.80 M/cumm [facility] MCV 80.8(L) 81.3 - 96.4 fL [facility] MCH 21.8(L) 27.1 - 33.3 pg [facility] MCHC 27.0(L) 32.3 - 35.7 g/dL [facility]DW CV 17.7(H) 11.1 - 14.9 % [facility] RDW SD 52.2(H) 35.7 - 48.1 fL [facility] NRBC abs 0.00 0.00 - 0.01 K/cumm [facility] Blood 09/05/2024 12:3 1 PM CDT 09/05/2024 6:46 PM CDT Nuris Thompson MD LAB BLOOD ORDERABLES F inal Result Performing Organization Address City/[facility] Co de Phone Number [place] [address] [facility] [place] [address] * Vitamin D 25 hydroxy (09/05/2024 12:31 PM CDT) Pathologist [facility] Vitamin D 25-OH 52 30 - 80 ng/mL Blood 09/05/2024 12:3 1 PM CDT 09/05/2024 6:46 PM CDT Nuris Thompson MD LAB BLOOD ORDERABLES F inal Result Performing Organization Address [facility] Co de Phone Number [facility] [address] [facility] [place] [address] * T3, free (09/05/2024 12:31 PM CDT) Pathologist [facility] Free T3 3.1 2.0 - 4.4 pg/mL Blood 09/05/2024 12:3 1 PM CDT 09/05/2024 6:46 PM CDT Nuris Thompson MD LAB BLOOD ORDERABLES F inal Result Performing Organization Address [facility] Co de Phone Number [facility] [address] [facility] [place] [address] * TSH (09/05/2024 12:31 PM CDT) Pathologist [facility] Thyroid Stimulating Hormone 1.62 0.30 - 4.20 mcIUnit/mL Blood 09/05/2024 12:3 1 PM CDT 09/05/2024 6:46 PM CDT Nuris Thompson MD LAB BLOOD ORDERABLES F inal Result Performing Organization Address [facility] Co de Phone Number [facility] [address] [facility] [place] [address] * (ABNORMAL) T4, free (09/05/2024 12:31 PM CDT) [facility] Free T4 0.85(L) 0.90 - 1.70 ng/dL Blood 09/05/2024 12:3 1 PM CDT 09/05/2024 6:46 PM CDT Nuris Thompson MD LAB BLOOD ORDERABLES F inal Result Performing Organization Address [facility] Co de Phone Number THERESA [address] [address] [place] [address] * Ferritin (09/05/2024 12:31 PM CDT) [facility] Ferritin 32 30 - 400 ng/mL Blood 09/05/2024 12:3 1 PM CDT 09/05/2024 6:46 PM CDT Nuris Thompson MD LAB BLOOD ORDERABLES F inal Result Performing Organization Address [facility] Co de Phone Number [facility] [address] [facility] [place] [address] * (ABNORMAL) Lipid panel (09/05/2024 12:31 PM CDT) [facility] Cholesterol 126 30 - 199 mg/dL Comment: Interpretive Data Ages < or = 19 years Acceptable: <170 mg/dL Borderline high: 170-199 mg/dL High: >or= 200 mg/dL Ages > or = 20 years Desirable: <200 mg/dL Borderline high: 200-239 mg/dL High: >or= 240 mg/dL Literature References: 1. Expert Panel on Integrated Guidelines for Cardiovascular Health and Risk Reduction in Children and Adolescents. Pediatrics 2011;128:S213 2. NCEP Expert Panel. Circulation 2004;110:227 Current Interpretive Data was last revised on 2018. Triglycerides 182(H) <=149 mg/dL [facility]A Comment: Interpretive Data Ages < or = 9 years Acceptable: <75 mg/dL Borderline high: 75-99 mg/dL High: >or= 100 mg/dL Ages 10 to 20 years Acceptable: <90 mg/dL Borderline high: 90-129 mg/dL High: >or= 130 mg/dL Ages > or = 20 years Desirable: <150 mg/dL Borderline high: 150-199 mg/dL High: 200-499 mg/dL Very high: >or= 499 mg/dL Literature References: 1. Expert Panel on Integrated Guidelines for Cardiovascular Health and Risk Reduction in Children and Adolescents. Pediatrics 2011;128:S213 2. NCEP Expert Panel. Circulation 2004;110:227 Current Interpretive Data was last revised on 2018. HDL 35(L) >=40 mg/dL THERESA Comment: Interpretive Data Ages < or = 19 years Acceptable: >45 mg/dL Borderline low: 40-45 mg/dL Low: <40 mg/dL Ages > or = 20 years Desirable: >or= 60 mg/dL Low: <40 mg/dL Literature References: 1. Expert Panel on Integrated Guidelines for Cardiovascular Health and Risk Reduction in Children and Adolescents. Pediatrics 2011;128:S213 2. NCEP Expert Panel. Circulation 2004;110:227 Current Interpretive Data was last revised on 2018. LDL, calculated 60 <=129 mg/dL THERESA Comment: Interpretive Data Ages < or = 19 years Acceptable: <110 mg/dL Borderline high: 110-129 mg/dL High: >or= 130 mg/dL Ages > or = 20 years Optimal: <100 mg/dL Near optimal: 100-129 mg/dL Borderline high: 130-159 mg/dL High: >160 mg/dL Calculated using the Burciaga LDL-C estimating equation. This equation was implemented on 2024. Prior to this date LDL-C was estimated using the Friedewald equation. Literature References: 1. Expert Panel on Integrated Guidelines for Cardiovascular Health and Risk Reduction in Children and Adolescents. Pediatrics 2011;128:S213 2. NCEP Expert Panel. Circulation 2004;110:227 3. Gualberto M et al. JILLIAN Cardiol. 2019September 19;5(5):540-548. doi: 10.1001/[email or web address] Current Interpretive Data was last revised on 2024. Non-HDL Cholesterol 91 mg/dL [facility] Comment: Interpretive Data Ages < or = 19 years Acceptable: <120 mg/dL Borderline high: 120-144 mg/dL High: >145 mg/dL Ages > or = 20 years When triglycerides are >200 mg/dL, Non-HDL cholesterol is a secondary target of therapy with treatment goals that are 30 mg/dL greater than the LDL cholesterol target. Literature References: 1. Expert Panel on Integrated Guidelines for Cardiovascular Health and Risk Reduction in Children and Adolescents. Pediatrics 2011;128:S213 2. NCEP Expert Panel. Circulation 2004;110:227 Current Interpretive Data was last revised on 2018. Chol/HDL ratio 4 [facility] Blood 09/05/2024 12:3 1 PM CDT 09/05/2024 6:46 PM CDT Nuris Thompson MD LAB BLOOD ORDERABLES F inal Result [facility] [address] [place] [address] * (ABNORMAL) Comprehensive metabolic panel (09/05/2024 12:31 PM CDT) Sodium 134(L) 135 - 145 mmol/L Potassium, pl 4.5 3.3 - 4.9 mmol/L [facility] Chloride 104 97 - 110 mmol/L [facility] CO2 23 22 - 32 mmol/L [facility] Anion gap 7 2 - 15 mmol/L [facility] BUN 17 6 - 25 mg/dL [facility] Creatinine 0.87 0.80 - 1.30 mg/dL [facility] Glucose 76 70 - 199 mg/dL [facility] Comment: Interpretive Data Fasting glucose >/= 126 mg/dl is diagnostic for diabetes. Fasting is defined as no caloric intake for at least 8 hours. Fasting glucose between 100 mg/dl to 125 mg/dl is diagnostic of prediabetes. In a patient with classic symptoms of hyperglycemia or hyperglycemic crisis, a random glucose >/= 200 mg/dl is diagnostic for diabetes. In the absence of unequivocal hyperglycemia, results should be confirmed by repeat testing. The classification and Diagnosis of Diabetes Diabetes Care 2021; 46: S19-S40. Current interpretive data was last revised 2022. Calcium 9.4 8.5 - 10.3 mg/dL [facility] Bilirubin, total 0.3 0.1 - 1.2 mg/dL [facility] Protein, pl 7.8 6.5 - 8.5 g/dL [facility] Albumin 4.0 3.5 - 5.0 g/dL [facility] Alk phos 84 40 - 130 Units/L [facility] ALT 29 7 - 55 Units/L [facility] AST 55(H) 10 - 50 Units/L [facility] Blood 09/05/2024 12:3 1 PM CDT 09/05/2024 6:46 PM CDT Nuris Thompson MD LAB BLOOD ORDERABLES F inal Result [facility]IS [address] Department [place] [address] from Last 3 Months Insurance MEDICARE [facility] MEDICARE [facility] AET MEDICARE MEDICARE [facility] T MEDICARE Advance Directives For more information, please contact: [phone] * Full Code (Latest Code Status on File) Date Activated Date Inactivated Comments 09/07/2021 4:41 PM 09/08/2021 3:23 PM Care Teams Dispatch Officer Relationship Specialty Start Date End Date Mikey Olivera MD [address] [place] [address] PCP - General 08/19/16 Nuris Thompson MD [address] [place] [address] Consulting Physician Cardiovascular Disease 04/02/24 [place] [address] [address] [address] Consulting Physician Urology 04/03/24
--- OUTSIDE RECORDS SUMMARY | 2024-10-31 12:51 | XMS_ITS | Clinical Summary ---
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 This disclosure is being madepursuant to the Care Everywhere program and may not contain all information available regarding this patient. Last updated 18.[facility] Allergies No known active allergies Medications * Be aware that medications may not be up to date on this document. Alwaysverify current medications with the patient. losartan (Cozaar) 100 MG tablet Take 100 mg by mouth once daily Active pravastatin (Pravachol) 40 MG tablet Take 40 mg by mouth once daily Active omeprazole (PriLOSEC) 20 MG capsule Take 20 mg by mouth daily before breakfast Active Multiple Vitamins-Minera ls (PreserVision AREDS 2) capsule Take 1 capsule by mouth 2 times daily Active warfarin (Coumadin) 5 MG tablet Take 5 mg by mouth Active tamsulosin (Flomax) 0.4 MG capsule Take 0.4 mg by mouth every evening At the same time every day after a meal. Active oxyCODONE-aceta minophen (Percocet) 5-325 MG tablet Take 1 (one) tablet by mouth every 6 hours as needed for Pain 30 tablet 2 Active Social History Tobacco Use Types Packs/Day Years Used Date Smoking Tobacco: Former Cigarettes Q uit: 2009 Smokeless Tobacco: Never Alcohol Use Standard Drinks/Week Comments Not Currently 0 (1 standard drink = 0.6 oz pur e alcohol) Sex and Gender Information Value Date Recorded Sex Assigned at Not on file Legal Sex Male 11:19 AM CDT Gender Identity Not on file Sexual Orientation Not on file Last Filed Vital Signs Vital Sign Reading Time Taken Comments Blood Pressure 182/95 12/31/2021 10:40 AM CDT Pulse 75 12/31/2021 10:20 AM CDT Temperature 36.1 C (97 F) 12/31/2021 8:50 AM CDT Respiratory Rate 16 12/31/2021 10:20 AM CDT Oxygen Saturation 98% 12/31/2021 10:20 AM CDT Inhaled Oxygen Concentration - - Weight 69.4 kg (153 lb) 12/31/2021 5:54 AM CDT Height 177.8 cm (5' 10) 12/31/2021 5:54 AM CDT Body Mass Index 21.95 12/31/2021 5:54 AM CDT Plan of Treatment Health Maintenance Due Date Last Done Comments MEDICARE AWV 12 MONTHS 1942 DTAP/TDAP/TD VACCINES (1 - Tdap) 1961 PNEUMOCOCCAL VACCINE 50+ (1 of 1 - PCV) 1992 ZOSTER VACCINE (1 of 2) 1992 Respiratory Syncytial Virus (RSV) Vaccine Pt: or over 60 yrs (1 - 1-dose 75+ series) 2017 COVID-19 VACCINE ( - 2023-2 5 season) 2024 DEPRESSION SCREENING 05/22/2024 INFLUENZA VACCINE (Season Ended) 2025 HEPATITIS B VACCINE Aged Out No longe r eligible based on patient's age to complete this topic HIB VACCINE Aged Out No longer eligi ble based on patient's age to complete this topic HPV VACCINE Aged Out No longer eligi ble based on patient's age to complete this topic MENINGOCOCCAL (Group B) VACC INE SHARED DECISION-MAKING Aged Out No longer eligibl e based on patient's age to complete this topic MENINGOCOCCAL GROUPS A/C/Y/W VACCINE Aged Out No longer eligible b ased on patient's age to complete this topic Medical Devices Implanted Type Area Repair Supervisor Device Identifier Shelf Expiration Date Model / Serial / Lot Wedge Aug [id number] Biosync Puja Rodriguez Implanted:Qty: 1 on 12/31/2021 by Angus Millan DPM at [facility] Right: Foot [employer] 08/24/2023 [id number] Wedge Dec 20mmx6.5mm Biosync Puja Cttn Implanted:Qty: 1 on 12/31/2021 by Angus Millan DPM at [facility] Right: Foot [employer] 07/20/2023 [id number] Insurance MEDICARE COUNT INCLUDES THE [facility] * Guarantor: TRISTAN CRAVEN Account Type Relation to Patient Date of Phone Billing Address Personal/Family [address] [place] [address] MEDICARE ANTHEM * Guarantor: TRISTAN CRAVEN Account Type Relation to Patient Date of Phone Billing Address Personal/Family [address] [place] [address] MEDICARE ANTHEM * Guarantor: TRISTAN CRAVEN Account Type Relation to Patient Date of Phone Billing Address Personal/Family [address] [place] [address] MEDICARE Member Subscriber Plan / Payer (Ef fective for All Dates) Name:Bruce Tristan Member ID:[id number] Relation to Subscriber:Self Name:Tristan Craven Subscriber ID:[id number] Payer ID:Not on file Group ID:Not on file Type:Medicare Address: [place] [id number] ANTHEM Care Teams Air Compressor Mechanic Relationship Specialty Start Date End Date Mikey Olivera MD [address] [phone] PCP - General Internal Medicine 12/31/21
--- OUTSIDE RECORDS SUMMARY | 2024-10-31 12:51 | XMS_ITS | Clinical Summary ---
Author Organization [facility] [address] Address [address] [place] [address] Care Team Providers Care Warning Analyst Name Role Phone Mikey Olivera MD Primary Care Provide r Nuris Thompson MD Unavailable [phone] Ramos Fong MD Unavailable [phone] Allergies Active Allergy Reactions Criticality Noted Date [...] (08/16/2021): Added automatically from request for surgery [id number] Status post placement of implantable loop record er 10/22/2019 Overview (10/22/2019): RB-DoorsroniDatameer-Biomonitor III-Imp Loop Recorder. Dx; PAF, Presynope, Bradycardia. DOI 10/22/2019-[facility]. RB-Doorsronik remote home monitoring. Near syncope 10/18/2019 Nonsustained [...] (08/16/2021): Added automatically from request for surgery [id number] Visit for wound check 10/29/20192022 Postural dizziness with presyncope 12/30/2018 10/18/2019 History of open heart surgery 10/20/2016 08/17/2021 Overview (10/21/2016): S/P ablation of atrial fibrillation intermediate current use of ant icoagulant therapy [...] 03/26/2012 04/12/20 19 Overview (08/26/2016): BENIGN HYPERTENSION Encounters Date Type Department Care Team Description 09/05/2024 12:25 PM CDT Lab [address] [address] from Last 3 Months Surgical History Surgery Date Site/Laterality Comments TONSILLECTOMY Tonsillectomy COLONOSCOPY ABLATION OF AFIB FLUTTER x3 INSERT / REPLACE / REMOVE PACEMAKER Biotronik CARDIAC CATHETERIZATION SHOULDER SURGERY Right ANKLE SURGERY Right CHOLECYSTECTOMY Medical History Medical History Date Comments PAF (paroxysmal atrial fibrillation) (HCC) S/P ablation Aortic stenosis Atrial flutter (HCC) S/P ablatio n Macular degeneration PONV (postoperative nausea and vomiting) Legally blind Hypertension Hyperlipidemia Fatigue Aortic stenosis, severe Dizziness Syncope H/O atrial flutter GERD (gastroesophageal reflux disease) H/O: GI bleed 09/2023 [facility] History of transfusion Cataract Delirium 04/03/2024 Family History Medical History Relation Name Comments Other Brother 2 Heart transplan t after [place]; Other Father complications a fter stroke; Cause of : complications after stroke Lymphoma Mother Lymphoma; Cause of : Lymphoma Anesthesia problems Neg Hx Relation Name Status Comments Brother 1 Alive Brother 2 Father (Age 72) Mother (Age 62) Social History Tobacco Use Types Packs/Day Years [...] on file Legal Sex Male 8:20 AM 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 Gender Identity Not on file Sexual Orientation Not on file Obstetrics History Last Filed Vital Signs Vital Sign Reading Time Taken Comments Blood Pressure 162/73 04/03/2024 7:48 AM 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 Pulse 61 04/03/2024 7:48 AM 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 Temperature 36.7 C (98 F) 04/03/2024 7:48 AM 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 Respiratory Rate 18 04/03/2024 7:48 AM 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 Oxygen Saturation 100% 04/03/2024 7:48 AM 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 Inhaled Oxygen Concentration - - Weight 70.2 kg (154 lb 12.8 oz) 04/02/2024 6:00 AM 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 Height 177.8 cm (5' 10) 04/01/2024 6:57 AM 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 Body Mass Index 22.21 04/01/2024 6:57 AM 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 Plan of Treatment Health Maintenance Due Date Last Done Comments Depression Screening 1942 DTaP/Tdap/Td Vaccine (1 - Tdap) 1953 Hepatitis B Screening 1960 Zoster Vaccine (1 of 2) 1992 Well Visit 65+ 09/26/2007 Covid-19 Vaccine (4 - 2023-2 5 season) 2024 04/05/2021, 07/14/2020, 06/16/2020 Influenza Vaccine (Season Ended) 2025 03/09/2021, 02/04/2020, 03/27/2019, Additional history exists Fall Risk Assessment 04/03/2025 04/03/2024 Pneumococcal vaccine 65+ Completed 05/03/2017, 04/21 Medical Devices Implanted Type Area Guidance Consultant Device Identifier Shelf Expiration Date Model / Serial / Lot Biotronik Ra Lead [id number] Implanted:Sedrick Hand MD (Quantity not on file) Lead Heart Biotronik [id number] / [id number] / Biotronik Rv Lead [id number] Implanted:Sedrick Hand MD (Quantity not on file) Lead Heart Biotronik [id number] / [id number] / Biotronik Pm Edora 8 Dr-T-05/24/2022 Implanted:05/24 by Sedrick Pan MD (Quantity not on file) Pacemaker Chest Wall Biotronik [id number] / [id number] / Loop Recorder Left: Chest Wall [employer] Delta Xtend Shoulder +9mm Spacer Humeral Sterile [id number] - [id number] Implanted:Qty: 1 on 09/07/2021 by Marcus Hernández MD at [facility] Right: Shoulder [employer] [id number] 08/19/2025 [id number] / / [id number] [employer] Delta Xtend 4.5mm 36mm Lock Shoulder Glenoid Screw Bone Metaglene [id number] - [id number] Implanted:Qty: 1 on 09/07/2021 by Marcus Hernánedz MD at [facility] Right: Shoulder [employer] [id number] 05/21/2026 [id number] / / [id number] Depuy S[employer]s [employer] [id number] Metaglene 10mm Long Peg Fixation - [id number] Implanted:Qty: 1 on 09/07/2021 by Marcus Hernández MD at [facility] Right: Shoulder Depuy [employer] [id number] 03/21/2026 [id number] / / [id number] [employer] Delta Xtend 4.5mm 30mm Lock Shoulder Glenoid Screw Bone Metaglene [id number] - [id number] Implanted:Qty: 1 on 09/07/2021 by Marcus Hernández MD at [facility] Right: Shoulder [employer] [id number] 05/21/2025 [id number] / / [id number] [employer] [id number] Component Glenoid Delta Xtend +6mm Od42mm - [id number] Implanted:Qty: 1 on 09/07/2021 by Marcus Hernández MD at [facility] Right: Shoulder [employer] [id number] 07/20/2023 [id number] / / [id number] [employer] Delta Xtend 4.5mm 42mm Lock Shoulder Glenoid Screw Bone Metaglene [id number] - [id number] Implanted:Qty: 1 on 09/07/2021 by Marcus Hernández MD at [facility] Right: Shoulder [employer] [id number] 05/21/2026 [id number] / / [id number] Dep[employer]ed[employer] Global Unite 14mm 129mm Modular Shoulder Standard Stem Humeral [id number] - [id number] Implanted:Qty: 1 on 09/07/2021 by Marcus Hernández MD at [facility] Right: Shoulder [employer] [id number] 06/21/2031 [id number] / / [id number] Dep[employer] Inc [id number] Implant Shldr Xtend Modecc 145epi Por Sz1 Rt - [id number] Implanted:Qty: 1 on 09/07/2021 by Marcus Hernández MD at [facility] Right: Shoulder [employer] [id number] 06/21/2030 [id number] / / [id number] Dep[employer] Delta Xtend 42mm Shoulder +3mm Standard Cup Humeral Polyethylene Latex Free [id number] - [id number] Implanted:Qty: 1 on 09/07/2021 by Marcus Hernández MD at [facility] Right: Shoulder [employer] [id number] 03/21/2026 [id number] / / [id number] Rin[employer] System Closure Repair Femoral Artery Suture Mediated Perclose Prostyle 98913-13 - [id number] Implanted:Qty: 1 on 04/01/2024 by Nuris Thompson MD at [facility] [employer] 12/19/2025 [id number] / / [id number] Rin[employer] System Closure Repair Femoral Artery Suture Mediated Perclose Prostyle 26634-97 - [id number] Implanted:Qty: 1 on 04/01/2024 by Nuris Thompson MD at [facility] [employer] 12/19/2025 [id number] / / [id number] Tovar Lif[employer]iences Daly 3 Commander Tovar 26mm Transcatheter Ultra Low Profile [id number] - [id number] - [id number] Implanted:Qty: 1 on 04/01/2024 by Nuris Thompson MD at [facility] [employer] 10/25/2026 [id number] / [id number] / SkinMedica Angio-Seal Vip 6fr Closere Device [id number] - [id number] Implanted:Qty: 1 on 04/01/2024 by Nuris Thompson MD at [facility] [employer] [id number] / / Procedures Procedure Name Priority Date/Time [...] 1 PM CDT 09/05/2024 7:22 PM CDT us Nuris Thompson MD LAB BLOOD ORDERABLES F inal Result THERESA [address] [address] Department [place] [address] * (ABNORMAL) Differential, auto (09/05/2024 12:31 PM CDT) Neutrophil abs 6.01 1.50 - 6.50 K/cumm Imm gran abs 0.04 0.00 - 0.10 K/cumm [facility] Lymphocyte abs 2.70 0.80 - 3.30 K/cumm [facility] Monocyte abs 0.87(H) 0.20 - 0.80 K/cumm [facility] Eosinophil abs 0.38 0.00 - 0.50 K/cumm [facility] Basophil abs 0.07 0.00 - 0.10 K/cumm [facility] Neutrophil pct 59.7 % [facility] Comment: Interpretive Data Percent cell count reference ranges are not reported, since discordance with absolute values may lead to misinterpretation of CBC data. Current Interpretive Data was last revised on 2017. Imm gran pct 0.4 % [facility] Comment: Interpretive Data Percent cell count reference ranges are not reported, since discordance with absolute values may lead to misinterpretation of CBC data. Current Interpretive Data was last revised on 2017. Lymphocyte pct 26.8 % [facility] Comment: Interpretive Data Percent cell count reference ranges are not reported, since discordance with absolute values may lead to misinterpretation of CBC data. Current Interpretive Data was last revised on 2017. Monocyte pct 8.6 % [facility] Comment: Interpretive Data Percent cell count reference ranges are not reported, since discordance with absolute values may lead to misinterpretation of CBC data. Current Interpretive Data was last revised on 2017. Eosinophil pct 3.8 % [facility] Comment: Interpretive Data Percent cell count reference ranges are not reported, since discordance with absolute values may lead to misinterpretation of CBC data. Current Interpretive Data was last revised on 2017. Basophil pct 0.7 % [facility] Comment: Interpretive Data Percent cell count reference ranges are not reported, since discordance with absolute values may lead to misinterpretation of CBC data. Current Interpretive Data was last revised on 2017. Blood 09/05/2024 12:3 1 PM CDT 09/05/2024 6:46 PM CDT us Nuris Thompson MD LAB BLOOD ORDERABLES F inal Result THERESA [address] [address] Department of [facility] [place] [address] * (ABNORMAL) Iron profile w/ IBC (09/05/2024 12:31 PM CDT) Iron 22(L) 50 - 150 mcg/dl TIBC 470(H) 250 - 400 mcg/dL [facility] Transferrin saturation 5(L) 20 - 50 % [facility] Blood 09/05/2024 12:3 1 PM CDT 09/05/2024 6:46 PM CDT Nuris Thompson MD LAB BLOOD ORDERABLES F inal Result THERESA [address] [address] Department [place] [address] * (ABNORMAL) CBC with auto differential (09/05/2024 12:31 PM CDT) Pathologist [facility] WBC 10.07(H) 3.80 - 9.90 K/cumm Hgb 9.1(L) 13.0 - 17.5 g/dL [facility] Hct 33.7(L) 38.9 - 50.3 % [facility] Plt 407(H) 150 - 400 K/cumm [facility] MPV 9.9 9.1 - 12.3 fL [facility] RBC 4.17(L) 4.30 - 5.80 M/cumm [facility] MCV 80.8(L) 81.3 - 96.4 fL [facility] MCH 21.8(L) 27.1 - 33.3 pg [facility] MCHC 27.0(L) 32.3 - 35.7 g/dL [facility] RDW CV 17.7(H) 11.1 - 14.9 % [facility] RDW SD 52.2(H) 35.7 - 48.1 fL [facility] NRBC abs 0.00 0.00 - 0.01 K/cumm [facility] Blood 09/05/2024 12:3 1 PM CDT 09/05/2024 6:46 PM CDT Nuris Thompson MD LAB BLOOD ORDERABLES F inal Result Performing Organization Address [facility]/ZIP Co de Phone Number THERESA SOLIS [address] [address] [facility] [place] [address] * Vitamin D 25 hydroxy (09/05/2024 12:31 PM CDT) Vitamin D 25-OH 52 30 - 80 ng/mL Blood 09/05/2024 12:3 1 PM CDT 09/05/2024 6:46 PM CDT Nuris Thompson MD LAB BLOOD ORDERABLES F inal Result Performing Organization Address [facility] Co de Phone Number [facility] [address] [address] [facility] [place] [address] * T3, free (09/05/2024 12:31 PM CDT) Free T3 3.1 2.0 - 4.4 pg/mL Blood 09/05/2024 12:3 1 PM CDT 09/05/2024 6:46 PM CDT Nuris Thompson MD LAB BLOOD ORDERABLES F inal Result Performing Organization Address [facility] Co de Phone Number THERESA [address] [address] [facility] [place] [address] * TSH (09/05/2024 12:31 PM CDT) Thyroid Stimulating Hormone 1.62 0.30 - 4.20 mcIUnit/mL Blood 09/05/2024 12:3 1 PM CDT 09/05/2024 6:46 PM CDT Nuris Thompson MD LAB BLOOD ORDERABLES F inal Result Performing Organization Address City/[facility]/ZIP Co de Phone Number THERESA [address] [address] [facility] [place] [address] * (ABNORMAL) T4, free (09/05/2024 12:31 PM CDT) Free T4 0.85(L) 0.90 - 1.70 ng/dL Blood 09/05/2024 12:3 1 PM CDT 09/05/2024 6:46 PM CDT Nuris Thompson MD LAB BLOOD ORDERABLES F inal Result Performing Organization Address [facility] Co de Phone Number [facility] [address] [address] Department [facility] [place] [address] * Ferritin (09/05/2024 12:31 PM CDT) [facility] Ferritin 32 30 - 400 ng/mL Blood 09/05/2024 12:3 1 PM CDT 09/05/2024 6:46 PM CDT Nuris Thompson MD LAB BLOOD ORDERABLES F inal Result Performing Organization Address [facility] de Phone Number [facility] [address] [address] Department [facility] [place] [address] * (ABNORMAL) Lipid panel (09/05/2024 12:31 PM CDT) [facility] Cholesterol 126 30 - 199 mg/dL Comment: [...] on 2018. Triglycerides 182(H) <=149 mg/dL [facility] SOLIS Comment: Interpretive Data Ages < or = [...] mg/dL High: >160 mg/dL Calculated using the Gualberto LDL-C estimating equation. This equation was implemented on 2024. Prior to this date LDL-C was estimated using the Friedewald equation. Literature References: 1. Expert Panel on Integrated Guidelines for Cardiovascular Health and Risk Reduction in Children and Adolescents. Pediatrics 2011;128:S213 2. NCEP Expert Panel. Circulation 2004;110:227 3. Gualberto Gamble al. JILLIAN Cardiol. 2020 September 19;5(5):540-548. doi: 10.1001/jamacardio.2020.0013 Current Interpretive Data was last revised on 2024. Non-HDL Cholesterol 91 mg/dL [facility] Comment: Interpretive Data Ages < [...] MD LAB BLOOD ORDERABLES F inal Result [facility] [address] [address] Department [place] [address] * (ABNORMAL) Comprehensive metabolic panel (09/05/2024 12:31 PM CDT) Sodium 134(L) 135 - 145 mmol/L Potassium, pl 4.5 3.3 - 4.9 mmol/L [facility] Chloride 104 97 - 110 mmol/L [facility] CO2 23 22 - 32 mmol/L [facility] Anion gap 7 2 - 15 mmol/L [facility] BUN 17 6 - 25 mg/dL [facility] Creatinine 0.87 0.80 - 1.30 mg/dL [facility] Glucose 76 70 - 199 mg/dL [facility] Comment: Interpretive Data Fasting glucose >/= 126 [...] BLOOD ORDERABLES F inal Result THERESA SOLIS [address] [address] Department [place] [address] from Last 3 Months Insurance MEDICARE [facility] MEDICARE [facility] MEDICARE MEDICARE [employer] [place] [employer] MEDICARE Advance Directives For more information, please contact: [phone] * Full Code (Latest Code Status on File) Date Activated Date Inactivated Comments 09/07/2021 4:41 PM 09/08/2021 3:23 PM Care Teams Warning Analyst Relationship Specialty Start Date End Date Mikey Olivera MD [address] [place] [address] PCP - General 08/19/16 Nuris Thompson MD [address] [place] [address] Consulting Physician Cardiovascular Disease 04/02/24 [place] [address] [address] [facility] [address] [place] [address] Consulting Physician Urology 04/03/24
== END 2024-10-31 12:13 | disposition home or self-care (01) ==
PROVIDERS: PCP Emergency Medicine; Visit Provider Internal Medicine Cardiovascular Disease
DX: R42 Dizziness and giddiness (principal); G47.33 Obstructive sleep apnea (adult) (pediatric); I10 Essential (primary) hypertension; M19.90 Unspecified osteoarthritis, unspecified site; I49.3 Ventricular premature depolarization; I47.10 Supraventricular tachycardia, unspecified; R53.83 Other fatigue; I48.91 Unspecified atrial fibrillation; I48.92 Unspecified atrial flutter; I35.0 Nonrheumatic aortic (valve) stenosis; R00.1 Bradycardia, unspecified; Z95.0 Presence of cardiac pacemaker; Z13.6 Encounter for screening for cardiovascular disorders; Z79.01 Long term (current) use of anticoagulants; Z86.79 Personal history of other diseases of the circulatory system; Z82.3 Family history of stroke
CPT/HCPCS: 36415; 85610

== ENCOUNTER 2024-11-07 11:18 | Outpatient (CLI) | payer MEDICARE, SELFPAY ==
--- OUTSIDE RECORDS SUMMARY | 2024-11-07 12:12 | XMS_ITS | CONTINUITY OF CARE DOCUMENT ---
Author Name farooq, farooq Address Unknown Organization [facility] Address [address] [place] [address] Phone [phone] Care Team Providers Care Technical Training Manager Name Role Phone Viviane VANN, Sedrick Unavailable POORNIMA SY MD Unavailable POORNIMA SY MD Unavailable PROBLEMS Condition Status Date Provider Notes Cardiology examination active Nuris preciado MD GRETA- severe active Camden Padilla RN Anticoagulation: coumadin active Yuli ly RN S/P Dual chamb PCM - Biotron ik ( MRI Safe) active Gabrielle Mills HTN active Ariadne Quinteros RN Atrial fibrillation active Ariadne Quinteros RN Atrial flutter active Ariadne Quinteros RN Atrial tachycardia, paroxysmal active Ariadne Quinteros RN Family History of CVA or Stroke: active ? 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 Dino [place] Fatigue active Nuris Thompson MD Osteoarthritis active Nuris Thompson MD Anticoagulation: coumadin active Nuris Thompson MD ENCOUNTERS Date Type Provider Location Encounter Diag nosis - In-person encounter Office Visit Lorin Brian 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 [facility] - In-person encounter Office Visit Nuris Thompson MD [facility] FatigueOsteoarthritisA nticoagulation: coumadin - In-person encounter Office Visit Sedrick Pan MD [facility] - In-person encounter Office Visit Nuris Thompson MD [facility] - In-person encounter Office Visit Sedrick Pan MD [facility] Aortic stenosis s/p TAVRHx of ventricular tachycardia (VTAC)- induced during TAVR - In-person encounter Office Visit Nuris Thompson MD [facility] Aortic stenosis s/p TAVR - In-person encounter Office Visit Sedrick Pan MD [facility] Carotid bruit, bilateral - In-person encounter Office Visit Sedrick Pan MD [facility] - In-person encounter Office Visit Sedrick Pan MD [facility] - In-person encounter Office Visit Sedrick Pna MD [facility] - In-person encounter Office Visit Sedrick Pan MD [facility] - In-person encounter Office Visit Sedrick Pan MD [facility] Heart blockDizziness and giddiness - In-person encounter Office Visit Sedrick Pna MD [facility] Aortic stenosisPVCs - In-person encounter Office Visit Sedrick Pan MD [facility] - In-person encounter Office Visit Ramiro Crump DO [facility] - In-person encounter Office Visit Ramiro Crump DO [facility] - In-person encounter Office Visit Ramiro Crump DO [facility] Sinus bradycardia - In-person encounter Office Visit Sedrick Pan MD [facility] - In-person encounter Office Visit Ramiro Crump DO [facility] - In-person encounter Office Visit Ramiro Crump DO [facility] - In-person encounter Office Visit Ramiro Crump DO [facility] Family History of CVA or Stroke: VITAL SIGNS Date Observation Value Provider blood pressure, diastolic 61 mm[Hg] [facility] blood pressure, systolic 126 mm[Hg] Maria Fernanda [facility] pulse rate 75 /min Merle Arriaga respiratory rate E&M 16 /min Merle Arriaga oxygen saturation, oximetry 99 % Merle Arriaga blood pressure, diastolic 85 mm[Hg] Al laura Arriaga blood pressure, systolic 164 mm[Hg] Fannie Arriaga blood pressure, cuff size regular Jony blockkristian Bart height E&M 68 [in_i] Merle Arriaga Body Mass Index (Ratio) 24.93 kg/m2 Alyson Thompson MD pulse rate 71 /min Amada Hopkins blood pressure, diastolic 79 mm[Hg] Em hiram Hopkins blood pressure, systolic 136 mm[Hg] Rossy anna Hopkins oxygen saturation, oximetry 99 % Amada Hopkins weight E&M 164 [lb_av] Amada Hopkins blood pressure, cuff size regular Em hiram Hopkins height E&M 68 [in_i] Amada Hopkins Body Mass Index (Ratio) 24.93 kg/m2 Jay Santiago blood pressure, diastolic 84 mm[Hg] Ka yla Ruple blood pressure, systolic 170 mm[Hg] Mayte la Ruple oxygen saturation, oximetry 98 % Lorin Ruple pulse rate 79 /min Lorin Ruple blood pressure, cuff size regular Ka yla Ruple weight E&M 164 [lb_av] Lorin Ruple height E&M 68 [in_i] Lorin Ruple Body Mass Index (Ratio) 24.78 kg/m2 Jcarlos Torres blood pressure, diastolic 77 mm[Hg] Li nkLogic blood pressure, systolic 172 mm[Hg] Maria Fernanda kLogic blood pressure, diastolic 77 mm[Hg] Ka yla Ruple blood pressure, systolic 172 mm[Hg] Mayte la Ruple oxygen saturation, oximetry 100 % Lorin Ruple pulse rate 79 /min Lorin Ruple weight E&M 163 [lb_av] Lorin Ruple height E&M 68 [in_i] Lorin Ruple Body Mass Index (Ratio) 24.26 kg/m2 Justin as [place] blood pressure, diastolic 87 mm[Hg] Li nkLogic blood pressure, systolic 143 mm[Hg] Maria Fernanda kLogic blood pressure, cuff size regular As kavon [place] blood pressure, diastolic 87 mm[Hg] As kavon [place] blood pressure, systolic 143 mm[Hg] Gerard alf [place] oxygen saturation, oximetry 97 % Clarissa Poli pulse rate 81 /min Clarissa [place] weight E&M 159.6 [lb_av] Clarissa [place] Body Mass Index (Ratio) 24.63 kg/m2 Justin Steward blood pressure, cuff size regular Ke rri Gruenenfelder blood pressure, diastolic 74 mm[Hg] Ke rri Gruenenfelder blood pressure, systolic 142 mm[Hg] Ker ri Gruenenfelder oxygen saturation, oximetry 98 % Mickie Gruenenfelder respiratory rate E&M 12 /min Mickie G ruenenfelder pulse rate 86 /min Mickie Grradhanenfe er weight E&M 162 [lb_av] Mickie Gruenenfe er height E&M 68 [in_i] Mickie Gruenenfe er Body Mass Index (Ratio) 23.87 kg/m2 Jay medzai blood pressure, cuff size regular Ke rri Gruenenfelder blood pressure, diastolic 69 mm[Hg] Ke rri Gruenenfelder blood pressure, systolic 135 mm[Hg] Ker ri Gruenenfelder oxygen saturation, oximetry 98 % Mickie Gruenenfelder respiratory rate E&M 12 /min Mickie G ruenenfelder pulse rate 72 /min Mickie Gruenenfe lder weight E&M 157 [lb_av] Mickie Gruenenfe lder height E&M 68 [in_i] Mickie Gruenenfe lder Body Mass Index (Ratio) 25.39 kg/m2 Jay Ahmedzai blood pressure, cuff size regular Ke rri Gruenenfelder blood pressure, diastolic 70 mm[Hg] Ke rri Gruenenfelder blood pressure, systolic 150 mm[Hg] Ker ri Gruenenfelder oxygen saturation, oximetry 93 % Mickie Gruenenfelder respiratory rate E&M 12 /min Mickie G ruenenfelder pulse rate 74 /min Mickie Gruenenfe lder weight E&M 167 [lb_av] Mickie Gruenenfe patricioer height E&M 68 [in_i] Mickie Gruenenfe patricioer Body Mass Index (Ratio) 24.33 kg/m2 All Pan MD blood pressure, diastolic 93 mm[Hg] [facility] blood pressure, systolic 157 mm[Hg] [facility] [place] oxygen saturation, oximetry 96 % Sharda Beltrán pulse rate 74 /min Sharda ahmadi weight E&M 160 [lb_av] Sharda ahmadi respiratory rate E&M 16 /min Mirtha mckinney [place] blood pressure, cuff size large Or she [place] height E&M 68 [in_i] Sharda ahmadi Body Mass Index (Ratio) 23.72 kg/m2 Jay Santiago blood pressure, diastolic 101 mm[Hg] Ke rri Gruenenfelder blood pressure, systolic 138 mm[Hg] Ker ri Gruenenfeldedmar blood pressure, cuff size large Ke rri Gruenenfelder oxygen saturation, oximetry 97 % Mickie Gruenenfelder respiratory rate E&M 16 /min Mickie G ruenenfelder pulse rate 74 /min Mickie Gruenenfe patricioer weight E&M 156 [lb_av] Mickie Tyler lder height E&M 68 [in_i] Mickie Andreae lder Body Mass Index (Ratio) 24.02 kg/m2 All Pan MD blood pressure, diastolic 68 mm[Hg] Mercedes nkLogic blood pressure, systolic 120 mm[Hg] Maria Fernanda kLogic blood pressure, cuff size regular Ke rri Gruenenfelder blood pressure, diastolic 68 mm[Hg] Ke rri Gruenenfelder blood pressure, systolic 120 mm[Hg] Karen ri Marcosyuniorelder oxygen saturation, oximetry 100 % Mickie Mendezhannaer respiratory rate E&M 16 /min Mickie logan pulse rate 69 /min Mickie Scott lder weight E&M 158 [lb_av] Mickie Mendeze lder height E&M 68 [in_i] Mickie Andreae er Body Mass Index (Ratio) 23.57 kg/m2 Dallas Watkins blood pressure, cuff size regular Pedro isty Greene respiratory rate E&M 18 /min Jagruti Elizabeth pulse rate 66 /min Jagruti Greene oxygen saturation, oximetry 98 % Jagruti Greene blood pressure, diastolic 80 mm[Hg] Kr isty Elizabeth blood pressure, systolic 150 mm[Hg] Kri sty Greene weight E&M 155 [lb_av] Jagruti Elizabeth height E&M 68 [in_i] Jagruti Greene Body Mass Index (Ratio) 24.17 kg/m2 Al Goetzcock DO blood pressure, cuff size regular Ke rri Gruenenfelder blood pressure, diastolic 70 mm[Hg] Ke rri Gruenenfelder blood pressure, systolic 130 mm[Hg] Karen ri Noeminenfdylan oxygen saturation, oximetry 98 % Mickie Noeminemarcelino respiratory rate E&M 18 /min Mickie G abidaenenfelder pulse rate 56 /min Mickie Noemineyuniore lder weight E&M 159 [lb_av] Mickie Grueneyuniore lder height E&M 68 [in_i] Mickie Grradhaneyuniore lder Body Mass Index (Ratio) 23.57 kg/m2 Al mejias Tama DO blood pressure, diastolic 70 mm[Hg] Pedro isty Elizabeth blood pressure, systolic 138 mm[Hg] Evon nathan Elizabeth oxygen saturation, oximetry 97 % Jagruti Elizabeth pulse rate 51 /min Jagruti Elizabeth respiratory rate E&M 16 /min Jagruti Elizabeth weight E&M 155 [lb_av] Jagruti Elizabeth blood pressure, cuff size small Pedro isty Elizabeth height E&M 68 [in_i] Jagruti Greene Body Mass Index (Ratio) 23.72 kg/m2 Cornelio Liuon blood pressure, cuff size large Ke rri Gruenenfelder blood pressure, diastolic 80 mm[Hg] Ke rri Gruenenfelder blood pressure, systolic 130 mm[Hg] Karen ri Noeminenfhannaer oxygen saturation, oximetry 99 % Mickie Donald respiratory rate E&M 20 /min Mickie G abidaenenfelder pulse rate 55 /min Mickie Noemineyuniore lder weight E&M 156 [lb_av] Mickie Noemineyuniore lder height E&M 68 [in_i] Mickie Scott mariaa Body Mass Index (Ratio) 23.72 kg/m2 Denn is [facility] blood pressure, diastolic 56 mm[Hg] [facility] blood pressure, systolic 110 mm[Hg] Sommer Diehlnelsy pulse rate 63 /min Stephan [facility] oxygen saturation, oximetry 97 % [facility] rate E&M 16 /min Stephan [facility] weight E&M 156 [lb_av] Stephan [facility] height E&M 68 [in_i] Stehpan [facility] Body Mass Index (Ratio) 22.96 kg/m2 Al is [facility] blood pressure, diastolic 80 mm[Hg] Ana Fierro blood pressure, systolic 150 mm[Hg] Marly Fierro blood pressure, resting Yes Cornelio Fierro pulse rate 52 /min Cyndi Fierro oxygen saturation, oximetry 98 % Cyndi Fierro respiratory rate E&M 17 /min Cyndi Fierro weight E&M 151 [lb_av] Cyndi Fierro height E&M 68 [in_i] Cyndi Fierro blood pressure, diastolic 64 mm[Hg] Al luelia Sharon blood pressure, systolic 122 mm[Hg] All lyndon Sharon pulse rate 54 /min Kaity [facility] oxygen saturation, oximetry 97 % Kaity [facility] respiratory rate E&M 15 /min Kaity [facility] Body Mass Index (Ratio) 23.87 kg/m2 Werner kamar Sharon weight E&M 157 [lb_av] Kaity [facility] height E&M 68 [in_i] Kaity Sharon ALLERGIES No Known Drug Allergies RESULTS Date Observation Value Provider Reference Range Interpretation Location Estimated Glomerular Filtration Rate (calc) 87 mL/min/{1. 73_m2} LinkLogic >=60 Normal C, [place] [address] cholesterol, non-HDL, total 91 mg/dL LinkLog[facility] C, [place] [address] lipoprotein, beta, serum, point, quantitative, calculated 60 mg/dL [facility] <=129 Normal C, [place] [address] HDL CHOLESTEROL 35 mg/dL [facility] >=40 Low C, [place] [address] triglyceride, serum, fasting 182 mg/dL [facility]ic <=149 High C, [place] [address] cholesterol, serum 126 mg/dL [facility] 30-199 Normal C, [place] [address] aspartate aminotransferase (SGOT), serum 55 1/L [facility] 10-50 High C, [place] [address] alanine aminotransferase (SGPT), serum 29 1/L [facility] 7-55 Normal C, [place] [address] Alkaline phosphatase 84 [facility] 40-130 Normal C, [place] [address] albumin, serum 4.0 g/dL [facility] 3.5-5.0 Normal C, [place] [address] protein, total, serum 7.8 g/dL [facility] 6.5-8.5 Normal C, [place] [address] bilirubin, serum, total 0.3 mg/dL [facility] 0.1-1.2 Normal C, [place] [address] calcium, serum 9.4 mg/dL [facility] 8.5-10.3 Normal C, [place] [address] blood glucose, random 76 mg/dL [facility] 70-199 Normal C, [place] [address] creatine, serum 0.87 mg/dL [facility] 0.80-1.30 Normal C, [place] [address] urea nitrogen, blood 17 mg/dL [facility] 6-25 Normal C, [place] [address] anion gap, serum 7 mmol/L [facility] 2-15 Normal C, [place] [address] carbon dioxide, venous blood 23 mmol/L [facility] 22-32 Normal C, [place] [address] chloride, serum 104 mmol/L [facility] 97-110 Normal C, [place] [address] potassium, serum 4.5 MMOL/L [facility] 3.3-4.9 Normal C, [place] [address] sodium, serum 134 mmol/L [facility] 135-145 Low C, [place] [address] thyroid stimulating hormone, serum 1.62 MCIUNIT/ML LinkLog[facility] 0.30-4.20 Normal C, [place] [address] Absolute Basophils 0.07 K/CUMM LinkLogic 0.00-0.10 Normal , [place] [address] Absolute Monocytes 0.87 K/CUMM Link[facility] 0.20-0.80 High C, [place] [address] Absolute Lymphocytes 2.70 K/CUMM [facility] 0.80-3.30 Normal , [place] [address] Absolute Neutrophils 6.01 K/CUMM [facility] 1.50-6.50 Normal C, [place] [address] nucleated red blood cells as percent of blood leukocytes 0.00 K/CUMM LinkLogic 0.00-0.01 Normal C, [place] [address] red blood cell distribution width, size density 52.2 fL Link[facility]ic 35.7-48.1 High C, [place] [address] mean corpuscular hemoglobin concentration, RBC 27.0 G/DL [facility] 32.3-35.7 Low C, [place] [address] mean corpuscular hemoglobin, RBC 21.8 pg [facility]Logic 27.1-33.3 Low C, [place] [address] mean corpuscular volume, RBC 80.8 fL [facility]ic 81.3-96.4 Low C, [place] [address] erythrocyte count, whole blood 4.17 M/CUMM LinkLogic 4.30-5.80 Low C, [place] [address] mean platelet volume 9.9 fL LinkLog[facility] 9.1-12.3 Normal C, [place] [address] platelet count 407 10*3/uL Link[facility]ic 150-400 High C, [place] [address] hematocrit, blood 33.7 % LinkLogic 38.9-50.3 Low C, [place] [address] hemoglobin, blood 9.1 g/dL LinkLogic 13.0-17.5 Low C, [place] [address] coagulation managed by Yuli Rodríguez RN international normalized ratio (INR) 2.2 Yuli Rodríguez RN Normal Absolute Basophils 0.1 K/CUMM LinkLogic 0.0-0.1 Normal C, [place] [address] Absolute Monocytes 1.3 K/CUMM LinkLogic 0.2-0.8 High , [place] [address] Absolute Lymphocytes 1.8 K/CUMM LinkLogic 0.8-3.3 Normal , [place] [address] Absolute Neutrophils 12.7 K/CUMM [facility]ic 1.5-6.5 High , [place] [address] nucleated red blood cells as percent of blood leukocytes 0.00 K/CUMM LinkLogic 0.00-0.01 Normal red blood cell distribution width, size density 50.4 fL Link[facility]ic 35.7-48.1 High mean corpuscular hemoglobin concentration, RBC 27.1 G/DL [facility]ic 32.3-35.7 Low mean corpuscular hemoglobin, RBC 21.3 pg [facility]ic 27.1-33.3 Low mean corpuscular volume, RBC 78.5 fL Link[facility]ic 81.3-96.4 Low erythrocyte count, whole blood 4.37 M/CUMM LinkLogic 4.30-5.80 Normal mean platelet volume 9.8 fL [facility] 9.1-12.3 Normal platelet count 319 10*3/uL Link[facility]ic 150-400 Normal hematocrit, blood 34.3 % [facility]ic 38.9-50.3 Low hemoglobin, blood 9.3 g/dL [facility]ic 13.0-17.5 Low Estimated Glomerular Filtration Rate (calc) 84 mL/min/{1. 73_m2} LinkLogic >=60 Normal , [place] [address] NT-pro BNP 234 LinkLogic <=450 Normal , [place] [address] aspartate aminotransferase (SGOT), serum 36 1/L LinkLogic 10-50 Normal C, [place] [address] alanine aminotransferase (SGPT), serum 35 1/L Link[facility]ic 7-55 Normal C, [place] [address] Alkaline phosphatase 103 Link[facility]ic 40-130 Normal C, [place] [address] albumin, serum 4.0 g/dL [facility]ic 3.5-5.0 Normal C, [place] [address] protein, total, serum 8.1 g/dL [facility]ic 6.5-8.5 Normal C, [place] [address] bilirubin, serum, total 0.4 mg/dL [facility] 0.1-1.2 Normal C, [place] [address] calcium, serum 9.4 mg/dL [facility] 8.5-10.3 Normal C, [place] [address] blood glucose, random 74 mg/dL [facility] 70-199 Normal C, [place] [address] creatine, serum 0.92 mg/dL Link[facility]ic 0.80-1.30 Normal C, [place] [address] urea nitrogen, blood 16 mg/dL [facility]ic 6-25 Normal C, [place] [address] anion gap, serum 9 mmol/L Link[facility]ic 2-15 Normal C, [place] [address] carbon dioxide, venous blood 22 mmol/L Link[facility]ic 22-32 Normal C, [place] [address] chloride, serum 103 mmol/L [facility] 97-110 Normal C, [place] [address] potassium, serum 4.3 MMOL/L Link[facility]ic 3.3-4.9 Normal C, [place] [address] sodium, serum 134 mmol/L Link[facility]ic 135-145 Low C, [place] [address] activated partial thromboplastin time (aPTT) 38 s [facility] 28-38 Normal C, [place] [address] international normalized ratio (INR) 2.05 LinkLogic 0.90-1.20 High C, [place] [address] prothrombin time (patient) 22.5 s LinkLogic 9.7-13.0 High C, [place] [address] Estimated Glomerular Filtration Rate (calc) 88 mL/min/{1. 73_m2} LinkLog[facility] C, [place] [address] cholesterol, non-HDL, total 120 mg/dL [facility] C, [place] [address] lipoprotein, beta, serum, point, quantitative, calculated 83 mg/dL [facility]ic <=129 Normal C, [place] [address] HDL CHOLESTEROL 32 mg/dL [facility]ic >=40 Low C, [place] [address] triglyceride, serum, fasting 186 mg/dL Link[facility]ic <=149 High C, [place] [address] cholesterol, serum 152 mg/dL [facility] 30-199 Normal C, [place] [address] aspartate aminotransferase (SGOT), serum 37 1/L [facility] 10-50 Normal C, [place] [address] alanine aminotransferase (SGPT), serum 31 1/L Link[facility] 7-55 Normal C, [place] [address] Alkaline phosphatase 106 [facility] 40-130 Normal C, [place] [address] albumin, serum 4.0 g/dL [facility] 3.5-5.0 Normal C, [place] [address] protein, total, serum 7.0 g/dL [facility] 6.5-8.5 Normal C, [place] [address] bilirubin, serum, total 0.5 mg/dL [facility] 0.1-1.2 Normal C, [place] [address] calcium, serum 9.3 mg/dL [facility] 8.5-10.3 Normal C, [place] [address] blood glucose, random 88 mg/dL [facility] 70-199 Normal C, [place] [address] creatine, serum 0.86 mg/dL [facility] 0.80-1.30 Normal C, [place] [address] urea nitrogen, blood 12 mg/dL [facility] 6-25 Normal C, [place] [address] anion gap, serum 9 mmol/L [facility] 2-15 Normal C, [place] [address] carbon dioxide, venous blood 24 mmol/L [facility] 22-32 Normal C, [place] [address] chloride, serum 105 mmol/L [facility] 97-110 Normal C, [place] [address] potassium, serum 4.1 MMOL/L [facility] 3.3-4.9 Normal C, [place] [address] sodium, serum 138 mmol/L [facility] 135-145 Normal C, [place] [address] thyroid stimulating hormone, serum 1.41 MCIUNIT/ML [facility] 0.30-4.20 Normal , [place] [address] Absolute Basophils 0.0 K/CUMM [facility] 0.0-0.1 Normal , [place] [address] Absolute Monocytes 0.8 K/CUMM [facility] 0.2-0.8 Normal , [place] [address] Absolute Lymphocytes 2.2 K/CUMM [facility] 0.8-3.3 Normal , [place] [address] Absolute Neutrophils 4.7 K/CUMM [facility] 1.7-6.5 Normal , [place] [address] nucleated red blood cells as percent of blood leukocytes 0.00 K/CUMM [facility] 0.00-0.01 Normal red blood cell distribution width, size density 47.7 fL [facility] 35.7-48.1 Normal mean corpuscular hemoglobin concentration, RBC 31.0 G/DL [facility] 32.3-35.7 Low mean corpuscular hemoglobin, RBC 29.7 pg [facility] 27.1-33.3 Normal mean corpuscular volume, RBC 95.9 fL [facility] 81.3-96.4 Normal erythrocyte count, whole blood 4.37 M/CUMM [facility] 4.30-5.80 Normal mean platelet volume 10.3 fL [facility] 9.1-12.3 Normal platelet count 303 10*3/uL [facility] 150-400 Normal hematocrit, blood 41.9 % [facility] 38.9-50.3 Normal hemoglobin, blood 13.0 g/dL [facility] 13.0-17.5 Normal activated partial thromboplastin time (aPTT) 50 s [facility] 28-38 High C, [address] [place] [address] international normalized ratio (INR) 2.54 Link[facility] 0.90-1.20 High [place] [address] prothrombin time (patient) 28.9 s [facility] 10.3-13.7 High C, [place] [address] HISTORY OF MEDICATION USE Medication Status Instructions Dates Provider Indications Com ments hydrochlorothiazide 12.5 mg tablet active Take 1 tablet by mouth once daily 10/18 Lorin Adams NP amlodipine 10 mg tablet active Take 1 tablet by mouth once a day 10/17 Lorin Adams NP iron 325 mg (65 mg iron) tablet active TAKE 1 TABLET BY MOUTH TWICE DAILY 09/12 Nuris Thompson MD warfarin 5 mg tablet active TAKE 1 TABL ET BY MOUTH EVERY DAY IN THE EVENING 08/19 Yuli Rodríguez RN warfarin 5 mg tablet completed TAKE 1 TABL ET BY MOUTH EVERY EVENING 05/23 - 08/19 Yuli Rodríguez RN losartan 100 mg tablet active TAKE 1 TABLET BY MOUTH EVERY DAY 11/06 Micki Gomez cholecalciferol (vitamin D3) 50 mcg (2,000 unit) capsule active TAKE 2 CAPSULES BY MOUTH EVERY DAY Margarita Ledesma NP amlodipine 5 mg tablet completed TAKE ONE TABLET BY MOUTH DAILY - 10/17 Lorin Adams NP finasteride 5 mg tablet active daily Margarita Ledesma NP omeprazole 20 mg capsule,delayed release(DR/EC) active daily Margarita Ledesma NP tamsulosin 0.4 mg capsule active nightly Margarita Ledesma NP cephalexin 250 mg capsule completed Take 1 capsule by mouth three times a day 11/21 - 07/25 Margarita Ledesma NP Percocet 5-325 mg tablet completed Take 1 tablet by mouth every eight hours as needed for pain do not drive or use any machinery for 12 hours after taking this medication 11/21 - 07/25 Margarita Ledesma NP losartan 100 mg tablet completed Take 1 tablet by mouth once a day 08/04 - 11/06 Micki Gomez hydrochlorothiazide 12.5 mg capsule completed Take 1 capsule once a day 11/03 - 07/17 Camden Padilla RN PreserVision AREDS 4,296 mcg-226 mg-90 mg capsule completed Take 1 capsule once a day 06/22 - 12/26 Margarita Ledesma NP FISH OIL CAPSULE completed 120mg daily 10/22 - 07/22 Mickie Bennett pravastatin 40 mg tablet active every night 10/22 Camden Padilla RN PRILOSEC 20 MG ORAL CAPSULE DELAYED RELEASE completed once a day 10/22 - 07/25 Margarita Ledesma NP CARDIZEM LA 120 MG ORAL TABLET EXTENDED RELEASE 24 HOUR completed one per day 10/22 - 02/08 Ramiro Crump DO losartan 100 mg tablet completed Take 1 tablet once a day 11/03 - 07/17 Camden Padilla RN COUMADIN TABLET completed as directed currently 5mg 10/22 - 10/17 Lorin Adams NP SOCIAL HISTORY Date Observation Value Provider number of grandchildren Nuris Thompson MD smoking, year quit 1984 Amada Jeannie palma number of years as a smoker 30 a Amada Hopkins smoking history, tot al pack/day 2 Amada Hopkins cigarette use yes Amada Hopkins smoking status Former smoker Amada Hopkins smoking, year quit 1984 Fab hernandez DNP,[facility] number of years as a smoker 30 a Fab Beth DNP,[facility] smoking history, tot al pack/day 2 Fab Beth DNP,[facility] cigarette use yes Fab 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,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 Former smoker Fab Beth DNP,[facility] smoking, year quit 1984 Nuris Thompson MD number of years as a smoker 30 a Nuris Thompson MD smoking history, tot al pack/day 2 Nuris Thompson MD cigarette use yes Nuris leon MD smoking status Former smoker Nuris betancourt MD smoking, year quit 1984 Dino kerns number of years as a smoker 30 a Dino Steward smoking history, tot al pack/day 2 Dino Steward cigarette use yes Dino Steward smoking status Former smoker Dino Iniguez y smoking, year quit 1984 Margarita Fendler WIRE WRAPPER MACHINE OPERATOR number of years as a smoker 30 a Margarita Fendler WIRE WRAPPER MACHINE OPERATOR smoking history, tot al pack/day 2 Margarita Fendler WIRE WRAPPER MACHINE OPERATOR cigarette use yes Margarita Fendl er WIRE WRAPPER MACHINE OPERATOR smoking status Former smoker Margarita Fen dler WIRE WRAPPER MACHINE OPERATOR Exercise counseling Yes Margarita Fendler WIRE WRAPPER MACHINE OPERATOR smoking, year quit 1984 Margarita Fendler WIRE WRAPPER MACHINE OPERATOR number of years as a smoker 30 a Margarita Fendler WIRE WRAPPER MACHINE OPERATOR smoking history, tot al pack/day 2 Margarita Fendler WIRE WRAPPER MACHINE OPERATOR cigarette use yes Margarita Fendl er WIRE WRAPPER MACHINE OPERATOR smoking status Former smoker Margarita Fen dler WIRE WRAPPER MACHINE OPERATOR Exercise counseling Yes Margarita Fendler WIRE WRAPPER MACHINE OPERATOR smoking history, tot al pack/day 2 Margarita Fendler WIRE WRAPPER MACHINE OPERATOR smoking, year quit 1984 Margarita Fendler WIRE WRAPPER MACHINE OPERATOR number of years as a smoker 30 a Margarita Fendler WIRE WRAPPER MACHINE OPERATOR cigarette use yes Margarita Fendl er WIRE WRAPPER MACHINE OPERATOR smoking status Former smoker Margarita Fen dler WIRE WRAPPER MACHINE OPERATOR number of grandchildren Sedrick Avila Fendler WIRE WRAPPER MACHINE OPERATOR pacemaker surgery, hx of Pacemaker Surger y,Hx of Sedrick Pan MD social history reviewed E&M revi ewed - no changes required Giuseppe Bennett social history reviewed E&M revi ewed - no changes required Jay Santiago smoking status Former smoker Giuseppe Underwoodnannette mojicaeldedmar social history reviewed E&M revi ewed - no changes required Giuseppe Bennett smoking, year quit 1984 Sharda Fordand number of years as a smoker 30 a Sharda Fordand cigarette use yes Sharda Julian herbert social history E&M Patient is a former smoker.; Smoking History: P akin is a former smoker. Jay Santiago social history reviewed E&M revi ewed - no changes required Jay Santiago smoking, year quit 1984 iMckie colon number of years as a smoker 30 a Mickie Bennett cigarette use yes Mickie richardson smoking status Former smoker Mickie benson social history reviewed E&M revi ewed - no changes required Sedrick Pan MD social history E&M Patient is a former smoker.; Sedrick Pan MD smoking, year quit 1984 Mickie colon number of years as a smoker 30 a Mickie Bennett cigarette use yes Mickie richardson smoking status Former smoker Mickie williamer smoking status Former smoker Ramiro bhagat DO social history E&M S moking History: P akin is a former smoker. Ramiro Crump DO social history reviewed E&M revi ewed - no changes required Ramiro Crump DO smoking, year quit 1985 Jagruti Bu sby number of years as a smoker 30 a Jagruti Elizabeth cigarette use yes Jagruti Elizabeth social history reviewed E&M revi ewed - no changes required [facility] E&M S moking History: P akin is a former smoker. Ramiro [facility] smoking, year quit 1985 Mickie Frazier [facility] number of years as a smoker 30 a Mickie Underwoodbennett cigarette use yes Mickie Underwooddisha [facility] smoking status Former smoker [facility]ie [facility] social history reviewed E&M revi ewed - no changes required Ramiro [facility] social history E&M S moking History: P akin is a former smoker. Ramiro [facility] number of grandchildren Ramiro Crump Galdino O [facility] smoking, year quit 1985 Jagruti Willams sby number of years as a smoker 30 a Jagruti Elizabeth cigarette use yes Jagruti Greene smoking status Former smoker Jagruti Greene social history reviewed E&M revi ewed - no changes required Sedrick Pan MD social history E&M S moking History: Wilfredo gerardo is a former smoker. Sedrick Pan MD number of grandchildren Sedrick Pan MD smoking, year quit 1985 Mickie Underwoodfernando colon number of years as a smoker 30 a Mickie Donald cigarette use yes Mickie Andrea [facility] smoking status Former smoker Mickie Rodríguez nfelder smoking, year quit 1985 Evelia Worthington lla WIRE WRAPPER MACHINE OPERATOR number of years as a smoker 30 a Evelia Goodrich WIRE WRAPPER MACHINE OPERATOR cigarette use yes Evelia Goodrich N P smoking status Former smoker Evelia Goodrich WIRE WRAPPER MACHINE OPERATOR social history reviewed E&M revi ewed - no changes required Evelia Goodrich WIRE WRAPPER MACHINE OPERATOR social history E&M S moking History: Wilfredo gerardo is a former smoker. Evelia Goodrich WIRE WRAPPER MACHINE OPERATOR number of grandchildren Ramiro Crump D O Angus Azul WIRE WRAPPER MACHINE OPERATOR smoking status Former smoker Cyndi Fierro social history E&M S moking History: Wilfredo gerardo is a former smoker. Ramiro Crump DO social history reviewed E&M revi ewed - no changes required Ramiro Crump DO number of years as a smoker 30 a Kaitylyndon Diehluck smoking, year quit 1984 Kaity Rony heath cigarette use yes Kaity Diehluck smoking status Former smoker Kaitylyndon Diehlfernando ck FUNCTIONAL STATUS Date Observation Value Provider Reason Fall Assessment not done medical c ontraindication Amada Hopkins FAMILY HISTORY Family Member Condition Father Family History of CV A or Stroke: INSURANCE PROVIDERS Payer name Policy type / Coverage type [place] ID [employer] MEDICARE BIANCA O Medicare [id number] 400 ADVANCE DIRECTIVES Name Date LIVING WILL ON FILE TREATMENT PLAN Date Name Performer [id number],S, Sedrick cedeno MD [id number],W, Sedrick cedeno MD [id number],C, O rders: G lobal No Charge (CPT-53803) S chedule Followup (*) Sedrick Pan MD [id number],C, O rders: G lobal No Charge (CPT-01629) Sedrick Pan MD [id number],C, H R < 40 BPM on ILR with inability to perform activities of daily living There are no causes for reversibility. W as having episodes of dizziness and lightheadeness with rare near-syncope. W e stopped diltiazem 01/2018 and a stress test showed he achieved 82% of MPHR. He continues to have intermittent episodes of dizziness, but has had no syncope. Brian quiñones to follow. Underwent ILR implant with Dr. Arndt. Giuseppe Mendezdylan [id number],S, Giuseppe Mendezhannaedmar [id number],C, S howed sinus bradycardia. Holter monitor showed SVT. H as PPM. Giuseppe Mendezhannaedmar [id number],C, H olter showed SVT, EKG today showed sinus bradycardia. No PVCs. Giuseppe Mendezdylan [id number],S, P rior BP: 157/93 (11/11/2022) Labs Reviewed: C hol: 152 (11/11/2022) His updated medication list for this problem includes: Losartan 100 Mg Tablet (Losartan) ..... Take 1 tablet by mouth once a day Giuseppe Mendezdylan [id number],S,H R < 40 BPM on ILR with inability to perform activities of daily living There are no causes for reversibility. W as having episodes of dizziness and lightheadeness with rare near-syncope. W e stopped diltiazem 01/2018 and a stress test showed he achieved 82% of MPHR. He continues to have intermittent episodes of dizziness, but has had no syncope. Brian quiñones to follow. Underwent ILR implant with Dr. Arndt. Sedrick Pan MD [id number],W, B P today: 157/93 P rior BP: 138/101 (11/24/2021) His updated medication list for this problem includes: Losartan 100 Mg Tablet (Losartan) ..... Take 1 tablet by mouth once a day Orders: P ROTHROMBIN TIME WITH INR (8847) P ARTIAL THROMBOPLASTIN TIME, ACTIVATED (763) C BC (INCLUDES DIFF/PLT) (6399) C OMPREHENSIVE METABOLIC PANEL W/EGFR (94128) U RINALYSIS, COMPLETE W/REFLEX TO CULTURE (3020) L IPID PANEL (7600) M AGNESIUM (622) T SH, free T4, total T3 (7444) Sedrick Pan MD [id number],W,s veer bradycardia went converts from atrial fibrillation to sinus. HR < 40 BPM on ILR with inability to perform activities of daily living Sedrick Pan MD [id number],W,H R < 40 BPM on ILR with inability to perform activities of daily living Sedrick Pan MD [id number],S, I n sinus bradycardia today. BPM 57. Since patient has severe symptomatic bradycardia, fatigue, dizziness, and periodic atrial fibrillation, and he will need a pacemaker. There are no causes for reversibility. W as having episodes of dizziness and lightheadeness with rare near-syncope. 12/2017 Tele HRs 50-69 bpm. W e stopped diltiazem 01/2018 and a stress test showed he achieved 82% of MPHR. He continues to have intermittent episodes of dizziness, but has had no syncope. C ishmael to follow. Underwent ILR implant with Dr. Arndt. Giuseppe Bennett [id number],B, H olter showed SVT, EKG today showed sinus bradycardia. No PVCs. Giuseppe Bennett [id number],S, Giuseppe benson [id number],S, I n sinus bradycardia today. BPM 57. Was having episodes of dizziness and lightheadeness with rare near-syncope. 12/2017 Tele HRs 50-69 bpm. W faye stopped diltiazem 01/2018 and a stress test showed he achieved 82% of MPHR. He continues to have intermittent episodes of dizziness, but has had no syncope. Brina quiñones to follow. Underwent ILR implant with Dr. Arndt. Giuseppe Bennett [id number],W, B P today: 157/93 P rior BP: 138/101 (11/24/2021) His updated medication list for this problem includes: Losartan 100 Mg Tablet (Losartan) ..... Take 1 tablet by mouth once a day Giuseppe Mendezdylan [id number],S, H olter monitor showed SVTs. Giuseppe Bennett [id number],B, S howed sinus bradycardia. Holter monitor showed SVT. Giuseppe Mendezdylan [id number],C,S inus rhythm with frequent VEs on EKG today. Will check 48 hr holter to evaluate his rhythms as his ILR transmissions are not coming in appropriately. PVCs are coming in from RV, possible RBBB morphology. Jay Bethalicia [id number],C,W ill defer management to Dr Alejo. Jay Santiago [id number],C,A dvised limiting salt intake. BP today: 138/101 P rior BP: 120/68 (11/25/2020) Jay Bethalicia [id number],C,S inus rhythm with frequent VEs on EKG today. Jay Morelsachin [id number],C,S inus rhythm with frequent VEs on EKG today. Will check 48 hr holter to evaluate his rhythms as his ILR transmissions are not coming in appropriately. PVCs are coming in from RV, possible RBBB morphology. Jay Santiago [id number],S, H is updated medication list for this problem includes: Coumadin Tablet (Warfarin sodium tabs) ..... As directed by monitoring dr Sedrick Pan MD [id number],CSedrick MD [id number],S,E KG today SR 64. has ILR will review recent downloads. follows with Dr. Alejo Ablated [place] A-fl[place] [address] Bustillo, after which he subsequently developed atrial fibrillation. His updated medication list for this problem includes: Coumadin Tablet (Warfarin sodium tabs) ..... As directed by monitoring dr Sedrick Pan MD [id number],S,E KG today SR 64. on coumadin. INR followed by Dr. Arndt Prior PVI 2011 with repeat in 2013. No recurrence of AFib, tolerates coumadin well. 3 0 day telesentry 12/2017 revealed no episodes recorded other than isolated atrial and ventricular ectopics. His updated medication list for this problem includes: Coumadin Tablet (Warfarin sodium tabs) ..... As directed by monitoring dr Sedrick Pan MD [id number],S,t autumn BP 120/68 B P 11/2019: 150/80 P rior BP: 130/70 (08/09/2018) Margarita Ledesma NP [id number],C,E KG SR 64. episodic dizziness. has ILR. Was having episodes of dizziness and lightheadeness with rare near-syncope. 12/2017 Tele HRs 50-69 bpm. W e stopped diltiazem 01/2018 and a stress test showed he achieved 82% of MPHR. He continues to have intermittent episodes of dizziness, but has had no syncope. C ontinues to follow. Underwent ILR implant with Dr. Arndt. Margarita Ledesma NP [id number],S,E KG today SR 64. has ILR will review recent downloads. follows with Dr. Alejo Ablated [place]fl[place] [address] Bustillo, after which he subsequently developed atrial fibrillation. Margarita Ledesma NP [id number],S,E KG today SR 64. on coumadin. INR followed by Dr. Arndt Prior PVI 2011 with repeat in 2013. No recurrence of AFib, tolerates coumadin well. 3 0 day telesentry 12/2017 revealed no episodes recorded other than isolated atrial and ventricular ectopics. Margarita Ledesma NP Cardiology: O n coumadin for hx of afib flutter. Will check labs because he has fatigued. Nuris Thompson MD Cardiology:The patie nt is using CPAP on a regular basis. The patient has been benefiting from therapy and should continue use. This visit has been a part of the consistent, comprehensive, and ongoing management of the chronic medical condition(s) listed above for the patient. Nuris Thompson MD Cardiology: s /p PPM Nuris Thompson MD Cardiology:Severe OS A. c [place] home sleep study c [place] thryoid panel M ay have to increase his PPM rate Basic rate / UTR [bpm] 60 / 130 - will have that addressed with SK Nuris Thompson MD Cardiology: . 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 Velocities, as well as gradients across the aortic valve are normal. Mild aortic valve r egurgitation. The KATHIA is 1.5 cm2. (rosanaley paravalvular leak noted on imaging. Noted to be mild based on pressure half time) P akin had TAVR with daly 3 with 26 +2ml valve to overexpand. 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 Nuris Thompson MD Cardiology: s /p PPM echo: 09/2023 EF 70-75%, aortic valve peak 3.8m/s, mean gradient 30.0mmHg and KATHIA 0.9cm2. compared to ECHO 02/2023 Vmax 3.3 m/s, mean grad 26mmHg, KATHIA 0.9cm2. mild dizziness with position changes. 'just move slowly' Nuris Thompson MD Cardiology:October 17, 2 025 R eturns to the office with complaints of uncontrolled blood pressure. No hospitalizations or surgeries. Denies shortness of breath, palpitations, dizziness, new onset vision changes or headache. On episode of chest discomfort when bp was 200/100s. Per averaging 160/75. Highest 212/97. Lowest 130/70s. Denies dietary changes, illness, new medications prescribed or over the counter. PLAN I ncrease amlodipine to 10mg--continue to keep bp log at home and bring into next appointment in [address] Thompson to review. Lorin 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 Cardiology:On coumad in for hx of afib flutter. Will check labs because he has fatigued. Nuris Thompson MD Cardiology:dulce fabian addressed avoding bleeding since on coumadin Nuris Thompson MD Cardiology:check zabrina e sleep study c heck thryoid panel M ay have to increase his PPM rate Basic rate / UTR [bpm] 60 / 130 - will have that addressed with SK Nuris Thompson MD Cardiology:s/p PPM Nuris preciado MD Cardiology: H is updated medication list for this problem includes: Losartan 100 Mg Tablet (Losartan) ..... Take 1 tablet by mouth every day Amlodipine 5 Mg Tablet (Amlodipine) ..... Take one tablet by mouth daily BP today: 136/79 P rior BP: 170/84 (07/24/2024) Labs Reviewed: C hol: 152 (11/11/2022) LDL: 83 (11/11/2022) T (11/11/2022) Nuris Thompson MD Cardiology: r emains on coumadin for AFib. N o AT/AF burden. Nuris Thompson MD Cardiology: l ast remote check : 0% AT/AF. no new events Nuris Thompson MD Cardiology:. The TAV R prosthesis is leaking, mild AI. Velocities, as well as gradients across the aortic valve are normal. Mild aortic valve r egurgitation. The KATHIA is 1.5 cm2. (rosanaley paravalvular leak noted on imaging. Noted to be mild based on pressure half time) P atient had TAVR with daly 3 with 26 +2ml valve to overexpand. 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 Nuris Thompson MD Electrophysiology:Wi ll repeat carotid in 1 year. C ONCLUSIONS: 1 . 50 - 69% stenosis of the left ICA. 2 . <50% stenosis of the right ICA. 3 . Vertebral flow is antegrade bilaterally. 4 . >50% Lt ECA stenosis. [facility]: 1 06/01/2023 TAVR Daly 3 with # 26 +2ml valve via 14F delivery with sheath Delivery via safari 0.[address]wire in [address] [employer] This visit has been a part of the consistent, comprehensive, and ongoing management of the chronic medical condition(s) listed above for the patient. W ill get repeat ECHO to assess LV function and valve function. [facility]rophys[facility]:Jeremy evated, reports BP at home runs 140s/80s. B P today: 170/84 P rior BP: 172/77 (05/23/2024) H is updated medication list for this problem includes: Losartan 100 Mg Tablet (Losartan) ..... Take 1 tablet by mouth every day Amlodipine 5 Mg Tablet (Amlodipine) ..... Take one tablet by mouth daily KIERA Dove DNPP Electrophysiology: r emains on coumadin for AFib. N o AT/AF burden. [facility] Cardiology:remains o n coumadin for AFib. n o evidence of AFIB on last remote check INR 2.1 05/20/24 Nuris Thompson MD Cardiology: s /p PPM Nuris Thompson MD Cardiology: TAVR Daly 3 with # 26 +2ml valve via 14F delivery with sheath Delivery via safari 0.[address]wire in [address] [employer] This visit has been a part of the consistent, comprehensive, and ongoing management of the chronic medical condition(s) listed above for the patient. Nuris Thompson MD Cardiology: C ONCLUSIONS: 1 . 50 - 69% stenosis of the left ICA. 2 . <50% stenosis of the right ICA. 3 . Vertebral flow is antegrade bilaterally. 4 . >50% Lt ECA stenosis. E lectronically Signed By: Sedrick Matias 12:47:43 CDT Nuris Thompson MD Electrophysiology:Th is visit has been a part of the consistent, comprehensive, and ongoing management of the chronic medical condition(s) listed above for the patient. His updated medication list for this problem includes: Amlodipine 5 Mg Tablet (Amlodipine) ..... Take one tablet by mouth daily Losartan 100 Mg Tablet (Losartan) ..... Take 1 tablet by mouth every day BP today: 143/87 P rior BP: 142/74 (01/11/2024) Labs Reviewed: C hol: 152 (11/11/2022) LDL: 83 (11/11/2022) T (11/11/2022) [facility] Electrophysiology: n o evidence of AFIB on last remote check [facility] Electrophysiology: C ONCLUSIONS: 1 . 50 - 69% stenosis of the left ICA. 2 . <50% stenosis of the right ICA. 3 . Vertebral flow is antegrade bilaterally. 4 . >50% Lt ECA stenosis. E lectronically Signed By: Sedrick Matias 2 12:47:43 CDT [facility] Electrophysiology:do ing well in the post-procedural period [facility] Cardiology:no eviden ce of AFIB on last remote check Margarita Ledesma NP Cardiology:s/p PPM echo: 09/2023 EF 70-75%, aortic valve peak 3.8m/s, mean gradient 30.0mmHg and KATHIA 0.9cm2. compared to ECHO 02/2023 Vmax 3.3 m/s, mean grad 26mmHg, KATHIA 0.9cm2. mild dizziness with position changes. 'just move slowly' Margarita Ledesma NP Cardiology:bilateral carotid bruits carotid duplex today Margarita Ledesma NP Cardiology:ECHO 10/08 24: EF 70-75%, aortic valve peak 3.8m/s, mean gradient 30.0mmHg and KATHIA 0.9cm2. compared to ECHO 02/2023 Vmax 3.3 m/s, mean grad 26mmHg, KATHIA 0.9cm2. pt is arranged for SUSAN and R/L heart cath in prep for TAVR evaluation Margarita Martínezall KENNEDY Electrophysiology:PT HAS RPM WITH AVERAGE BP 135/69. Documented BP reading is from patient's home BP readings due to white coat hypertension. B P today: 135/69 P rior BP: 150/70 (07/26/2023) Labs Reviewed: C hol: 152 (11/11/2022) LDL: 83 (11/11/2022) T (11/11/2022) His updated medication list for this problem includes: Amlodipine 5 Mg Tablet (Amlodipine) ..... Take one tablet by mouth daily Losartan 100 Mg Tablet (Losartan) ..... Take 1 tablet by mouth every day Margarita Ledesma NP Electrophysiology:no AFIB on last remote check nor on device check today. coumadin Margarita Baltazar KENNEDY Electrophysiology:EC HO 09/2023: EF 70-75%, aortic valve peak 3.8m/s, mean gradient 30.0mmHg and KATHIA 0.9cm2. compared to ECHO 02/2023 Vmax 3.3 m/s, mean grad 26mmHg, KATHIA 0.9cm2. will arrange for SUSAN and R/L heart cath in prep for TAVR evaluation pt would like to change general oracle architect to our group. pt would like to see Dr. Thompson. will arrange new pt appointment with Dr. Thompson to establish cardiology care and evaluation for TAVR. Margarita Baltazar KENNEDY Electrophysiology: B P today: 150/70 P rior BP: 157/93 (11/11/2022) Labs Reviewed: C hol: 152 (11/11/2022) LDL: 83 (11/11/2022) T (11/11/2022) His updated medication list for this problem includes: Amlodipine 5 Mg Tablet (Amlodipine) Losartan 100 Mg Tablet (Losartan) ..... Take 1 tablet by mouth once a day Discussion of benefits for remote patient monitoring took place. Patient gives consent for remote monitoring of physiologic parameters including, but not limited to, weight, blood pressure, pulse oximetry, respiratory flow rate. Margarita Martínezall KENNEDY Electrophysiology:s/p PPM Blane Mendozaliza KENNEDY Electrophysiology:la st remote check : 0% AT/AF. no new events Margarita Mendozaliza KENNEDY Electrophysiology:la st remote check : 0% AT/AF. no new events Margarita Ledesma WIRE WRAPPER MACHINE OPERATOR Electrophysiology:2022 ECHO no RWMA, EF 54%, mod-sev , mild LAE, mild TR 1 Cardiac MRI: concentric LVH, EF 55%, mod , mild AR. Margarita Baltazar KENNEDY Electrophysiology Sedrick sykes MD Electrophysiology Sedrick sykes MD Electrophysiology: O rders: G lobal No Charge (CPT-96455) S chedule Followup (*) Sedrick Pan MD Electrophysiology: O rders: G lobal No Charge (CPT-23410) Sedrick Pan MD Electrophysiology: H R < 40 BPM on ILR with inability to perform activities of daily living There are no causes for reversibility. W as having episodes of dizziness and lightheadeness with rare near-syncope. W e stopped diltiazem 01/2018 and a stress test showed he achieved 82% of MPHR. He continues to have intermittent episodes of dizziness, but has had no syncope. C ontinues to follow. Underwent ILR implant with Dr. Arndt. Giuseppe Bennett Electrophysiology Giuseppe richardson Electrophysiology: S howed sinus bradycardia. Holter monitor showed SVT. H as PPM. Giuseppe Bennett Electrophysiology: H olter showed SVT, EKG today showed sinus bradycardia. No PVCs. Giuseppe Bennett Electrophysiology: P rior BP: 157/93 (11/11/2022) Labs Reviewed: C hol: 152 (11/11/2022) His updated medication list for this problem includes: Losartan 100 Mg Tablet (Losartan) ..... Take 1 tablet by mouth once a day Sedrick Pan MD EP:HR < 40 BPM on IL R with inability to perform activities of daily living There are no causes for reversibility. W as having episodes of dizziness and lightheadeness with rare near-syncope. W e stopped diltiazem 01/2018 and a stress test showed he achieved 82% of MPHR. He continues to have intermittent episodes of dizziness, but has had no syncope. C ontinues to follow. Underwent ILR implant with Dr. Arndt. Sedrick Pan MD EP: B P today: 157/93 P rior BP: 138/101 (11/24/2021) His updated medication list for this problem includes: Losartan 100 Mg Tablet (Losartan) ..... Take 1 tablet by mouth once a day Orders: P ROTHROMBIN TIME WITH INR (8847) P ARTIAL THROMBOPLASTIN TIME, ACTIVATED (763) C BC (INCLUDES DIFF/PLT) (6399) C OMPREHENSIVE METABOLIC PANEL W/EGFR (48730) U RINALYSIS, COMPLETE W/REFLEX TO CULTURE (3020) L IPID PANEL (7600) M AGNESIUM (622) T SH, free T4, total T3 (7444) Sedrick Pan MD EP:sveer bradycardia went converts from atrial fibrillation to sinus. HR < 40 BPM on ILR with inability to perform activities of daily living Sedrick Pan MD EP:HR < 40 BPM on IL R with inability to perform activities of daily living Sedrick Pan MD EP: I n sinus bradycardia today. BPM 57. Since patient has severe symptomatic bradycardia, fatigue, dizziness, and periodic atrial fibrillation, and he will need a pacemaker. There are no causes for reversibility. W as having episodes of dizziness and lightheadeness with rare near-syncope. 12/2017 Tele HRs 50-69 bpm. W e stopped diltiazem 01/2018 and a stress test showed he achieved 82% of MPHR. He continues to have intermittent episodes of dizziness, but has had no syncope. C rastaindeborah to follow. Underwent ILR implant with Dr. Arndt. Giuseppe Donald EP: H olter showed SVT, EKG today showed sinus bradycardia. No PVCs. Giuseppe Donald EP Giuseppe Underwoodshe mann EP: I n sinus bradycardia today. BPM 57. Was having episodes of dizziness and lightheadeness with rare near-syncope. 12/2017 Tele HRs 50-69 bpm. W faye stopped diltiazem 01/2018 and a stress test showed he achieved 82% of MPHR. He continues to have intermittent episodes of dizziness, but has had no syncope. C ontindeborah to follow. Underwent ILR implant with Dr. Arndt. Giuseppe Donald EP: B P today: 157/93 P rior BP: 138/101 (11/24/2021) His updated medication list for this problem includes: Losartan 100 Mg Tablet (Losartan) ..... Take 1 tablet by mouth once a day Giuseppe Bennett EP: H olter monitor showed SVTs. Giuseppe Bennett EP: S howed sinus bradycardia. Holter monitor showed SVT. Giuseppe Bennett Electrophysiology:Si nus rhythm with frequent VEs on EKG today. Will check 48 hr holter to evaluate his rhythms as his ILR transmissions are not coming in appropriately. PVCs are coming in from RV, possible RBBB morphology. Jay Santiago Electrophysiology:Wi ll defer management to Dr Alejo. Jay Santiaog Electrophysiology:Ad vised limiting salt intake. BP today: 138/101 P rior BP: 120/68 (11/25/2020) Jay Santiago Electrophysiology:Si nus rhythm with frequent VEs on EKG today. Jay Santiago Electrophysiology:Si nus rhythm with frequent VEs on EKG today. Will check 48 hr holter to evaluate his rhythms as his ILR transmissions are not coming in appropriately. PVCs are coming in from RV, possible RBBB morphology. Jay Santiago Electrophysiology Fo llow up : H is updated medication list for this problem includes: Coumadin Tablet (Warfarin sodium tabs) ..... As directed by monitoring dr Sedrick Pan MD Electrophysiology Follow up All Pan MD Electrophysiology Fo llow up :EKG today SR 64. has ILR will review recent downloads. follows with Dr. Alejo Ablated [place] A-fl[place] [address] Bustillo, after which he subsequently developed atrial fibrillation. His updated medication list for this problem includes: Coumadin Tablet (Warfarin sodium tabs) ..... As directed by monitoring dr Sedrick Pan MD Electrophysiology Fo llow up :EKG today SR 64. on coumadin. INR followed by Dr. Arndt Prior PVI 2011 with repeat in 2013. No recurrence of AFib, tolerates coumadin well. 3 0 day telesentry 12/2017 revealed no episodes recorded other than isolated atrial and ventricular ectopics. His updated medication list for this problem includes: Coumadin Tablet (Warfarin sodium tabs) ..... As directed by monitoring dr Sedrick Pan MD Electrophysiology Fo llow up :today BP 120/68 B P 11/2019: 150/80 P rior BP: 130/70 (08/09/2018) Margarita Ledesma NP Electrophysiology Fo llow up :EKG SR 64. episodic dizziness. has ILR. Was having episodes of dizziness and lightheadeness with rare near-syncope. 12/2017 Tele HRs 50-69 bpm. W e stopped diltiazem 01/2018 and a stress test showed he achieved 82% of MPHR. He continues to have intermittent episodes of dizziness, but has had no syncope. C ontinues to follow. Underwent ILR implant with Dr. Arndt. Margarita Ledesma NP Electrophysiology Fo llow up :EKG today SR 64. has ILR will review recent downloads. follows with Dr. Alejo Ablated for A-flutter [place] [address] Bustillo, after which he subsequently developed atrial fibrillation. Margarita Martínezall [employer]ACHINE O[employer] Electrophysiology Fo llow up :EKG today SR 64. on coumadin. INR followed by Dr. Arndt Prior PVI 2011 with repeat in 2013. No recurrence of AFib, tolerates coumadin well. 3 0 day telesentry 12/2017 revealed no episodes recorded other than isolated atrial and ventricular ectopics. Margarita Martínezall [employer] WR[employer] MACHINE OPERATOR Electrophysiology: B P today: 150/80 P rior BP: 130/70 (08/09/2018) [facility]Wa s having episodes of dizziness and lightheadeness with rare near-syncope. 12/2017 Tele HRs 50-69 bpm. W e stopped diltiazem 01/2018 and a stress test showed he achieved 82% of MPHR. He continues to have intermittent episodes of dizziness, but has had no syncope. C ontinues to follow. Underwent ILR implant with Dr. Arndt. Ramiro [facility] Electrophysiology: A blated for A-flutter [place] [address] Bustillo, after which he subsequently developed atrial fibrillation. Ramiro [facility] Electrophysiology: P rior PVI 2011 with repeat in 2013. No recurrence of AFib, tolerates coumadin well. 3 0 day telesentry 12/2017 revealed no episodes recorded other than isolated atrial and ventricular ectopics. Ramiro Tama DO Electrophysiology Fo llow up :Intermittent episodes of dizziness and lightheadeness with rare near-syncope. Recent Tele HRs 50-70 bpm. W e stopped diltiazem 01/2018 and a stress test showed he achieved 82% of MPHR. He continues to have intermittent episodes of dizziness, but has had no syncope. C ontinue to follow. He could have orthostatic hypotension or sinus node dysfunction contributing, but no indication for PPM at this time. [facility] Fo llow up :Ablated for A-flutter [place] [address] Bustillo, after which he subsequently developed atrial fibrillation. Ramiro Crump DO Electrophysiology Fo llow up :Prior PVI 2011 with repeat in 2013. No recurrence of AFib, tolerates coumadin well. 3 0 day telesentry revealed no episodes recorded other than isolated atrial and ventricular ectopics. [facility]:In termittent episodes of dizziness and lightheadeness with rare near-syncope. Recent Tele HRs 50-70 bpm. W ill d/c Diltiazem and after off Diltiazem for 1 week, will get routine treadmill stress test to assess HR response with exertion. [facility]:Ab lated for A-fl[place] [address] Bustillo, after which he subsequently developed atrial fibrillation. Ramiro [facility] Electrophysiology:Pr ior PVI 2011 with repeat in 2013. No recurrence of palpitations, tolerates coumadin well. 3 0 day telesentry revealed no episodes recorded other than isolated atrial and ventricular ectopics. Ramiro Crump Electrophysiology Fo llow up : H is updated medication list for this problem includes: Cardizem La 120 Mg Oral Tablet Extended Release 24 Hour (Diltiazem hcl coated beads) ..... One per day Coumadin Tablet (Warfarin sodium tabs) ..... As directed by monitoring dr Orders: Yassine obile Cardiac Tele ([id number]) 9 9214 MOD Complex ([id number]) S chedule Followup (*) Sedrick Pan MD Electrophysiology Fo llow up : H is updated medication list for this problem includes: Coumadin Tablet (Warfarin sodium tabs) ..... As directed by monitoring dr Orders: Yassine obile Cardiac Tele ([id number]) 9 9214 MOD Complex ([id number]) S chedule Followup (*) Sedrick Pan MD Electrophysiology Fo llow up : H is updated medication list for this problem includes: Coumadin Tablet (Warfarin sodium tabs) ..... As directed by monitoring dr Orders: E KG ([id number]) M obile Cardiac Tele ([id number]) 9 9214 MOD Complex ([id number]) S chedule Followup (*) Sedrick Pan MD Electrophysiology Fo llow up : H is updated medication list for this problem includes: Coumadin Tablet (Warfarin sodium tabs) ..... As directed by monitoring dr Orders: Yassine obile Cardiac Tele ([id number]) 9 9214 MOD Complex ([id number]) Sedrick Pan MD Electrophysiology Fo llow up : H is updated medication list for this problem includes: Coumadin Tablet (Warfarin sodium tabs) ..... As directed by monitoring dr Orders: E KG ([id number]) Yassine obile Cardiac Tele ([id number]) 9 9214 MOD Complex ([id number]) Sedrick Pan MD Electrophysiology Fo llow up : H is updated medication list for this problem includes: Cardizem La 120 Mg Oral Tablet Extended Release 24 Hour (Diltiazem hcl coated beads) ..... One per day Coumadin Tablet (Warfarin sodium tabs) ..... As directed by monitoring dr Orders: Yassine obile Cardiac Tele ([id number]) 9 9214 MOD Complex ([id number]) Sedrick Pan MD Electrophysiology Fo llow up :BP today: 130/80 P rior BP: 110/56 (06/22/2017) His updated medication list for this problem includes: Hydrochlorothiazide 12.5 Mg Oral Capsule (Hydrochlorothiazide) ..... One tab. daily. stop valsartan Cardizem La 120 Mg Oral Tablet Extended Release 24 Hour (Diltiazem hcl coated beads) ..... One per day Losartan Potassium 100 Mg Oral Tablet (Losartan potassium) ..... Take one tablet daily, stop valsartan Sedrick Pan MD Electrophysiology - BCNP - DG:prior PVI 2011 with repeat in 2013. No recurrence of palps, tolerates coumadin well 3 0 day telesentry revealed no episodes recorded other than isolated atrial and ventricular ectopics. Evelia Goodrich NP Electrophysiology - BCNP - DG:BP today: 110/56 P rior BP: 150/80 (12/22/2016) Evelia Goodrich NP Electrophysiology - BCNP - DG Evelia Goodrich NP Electrophysiology fx ed 8-22 to pcp, lo: B P today: 150/80 P rior BP: 122/64 (12/24/2015) Angus Azul [employer]ACHINE OPERATOR Electrophysiology fx ed 822 to pcp, lo: p rior PVI 2011 with repeat in 2013. rare palps, tolerates well 3 0 day telesentry ordered Angus Azul [employer]ACHINE OPERATOR EP:on warfarin Ramiro Crump DO EP: B P today: 122/64 Ramiro Crump DO EP:prior PVI 2011 wi th repeat in 2013. no clinical recurrecnes. documented. rare palps, tolerates well Ramiro Crump DO Date Name PROTHROMBIN TIME WIT H INR Other Test IRON AND TOTAL IRON BINDING CAPACITY FERRITIN CBC (INCLUDES DIFF/P LT) Vitamin D, 25-Hydrox y LIPID PANEL COMPREHENSIVE METABO LIC PANEL, W/EGFR TSH, free T4, total T3 Sleep Study Home Carotid Duplex Bilat eral Complete Echo Aorta Duplex Ultraso und Complete Echo Complete Echo Prothrombin Time w/I NR EKG [facility] - [facility] MAGNESIUM PROTHROMBIN TIME WIT H INR LIPID PANEL CBC (INCLUDES DIFF/P LT) BASIC METABOLIC PANE L W/EGFR Carotid Duplex Bilat eral Stress Routine RPM (remote patient monitoring) TSH, free T4, total T3 MAGNESIUM LIPID PANEL URINALYSIS, COMPLETE W/REFLEX TO CULTURE COMPREHENSIVE METABO LIC PANEL W/EGFR CBC (INCLUDES DIFF/P LT) PARTIAL THROMBOPLAST IN TIME, ACTIVATED PROTHROMBIN TIME WIT H INR Dual Chamber with Re programming Holter Monitor 48 hr Mobile Cardiac Tele Mobile Cardiac Tele HISTORY OF PROCEDURES Procedure Date Procedure Name Provider Procedure Notes S tatus Complex e/m visit add on Nuris Thompson MD completed EKG Nuris Thompson MD compl eted Complex e/m visit add on Nuris Thompson MD completed EKG Nuris Thompson MD compl eted EKG Sedrick churchill MD completed Phone Anti-Coag Management Sedrick Pan MD completed Complex e/m visit add on Nuris Thompson MD completed EKG Nuris Thompson MD compl eted Schedule Followup Sedrick sykes MD completed Complex e/m visit add on Sedrick Pan MD completed EKG Sedrick churchill MD completed EKG Sedrick churchill MD completed Schedule Followup Sedrick sykes MD [facility] 6 months completed Schedule Followup Sedrick sykes MD 1 year completed EKG Sedrick churchill MD completed EKG Sedrick churchill MD completed EKG Sedrick churchill MD completed EKG Ramiro Crump DO [facility] Schedule Followup Ramiro Crump DO in 1 yr completed EKG Ramiro Crump DO [facility] EKG Ramiro Crump DO [facility] Mobile Cardiac Telem etry - Tech Sedrick Pan MD completed Mobile Cardiac Telem etry - Prof Sedrick Pan MD completed Schedule Followup Sedrick sykes MD in 1 yr completed EKG Sedrick churchill MD completed EKG Ramirojorge a Goetzcock DO [facility] SNOMED-CT: [id number] Current Medications Documented Ramirojorge a Goetzterrell PHILLIPS completed Event Monitor Ramiro Crump DO com pleted Schedule Followup Ramiro Tama DO 6 months completed EKG Ramiro Crump DO [facility] SNOMED-CT: [id number] Current Medications Documented Ramiro Theron PHILLIPS completed EKG Ramiro Crump DO [facility] SNOMED-CT: [id number] Current Medications Documented Ramiro Crump DO completed
--- OUTSIDE RECORDS SUMMARY | 2024-11-07 12:12 | XMS_ITS | Referral Summary ---
Author Organization [facility] [address] Address [address] [place] [address] Care Team Providers Care Charge Aide Name Role Phone Mikey Olivera MD Primary Care Provide r Nuris Thompson MD Unavailable [phone] Ramos Fong MD Unavailable Encounters Date Type Department Care Team Description 09/05/2024 12:25 PM CDT Lab [address] [address] from Last 3 Months Allergies [...] (08/16/2021): Added automatically from request for surgery [id number] Status post placement of implantable loop record er 10/22/2019 Overview (10/22/2019): AxioMx-Biomonitor III-Imp Loop Recorder. Dx; PAF, Presynope, Bradycardia. DOI 10/22/2019-[facility]. Huaatronik remote home monitoring. 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 icoagulant therapy 10/29/2015 [...] on file Legal Sex Male 8:20 AM [employer] Gender Identity Not on file Sexual Orientation Not on file Last Filed Vital Signs Vital Sign Reading Time Taken Comments Blood Pressure 162/73 04/03/2024 7:48 AM [employer] Pulse 61 04/03/2024 7:48 AM [employer] Temperature 36.7 C (98 F) 04/03/2024 7:48 AM [employer] Respiratory Rate 18 04/03/2024 7:48 AM [employer] Oxygen Saturation 100% 04/03/2024 7:48 AM [employer] Inhaled Oxygen Concentration - - Weight 70.2 kg (154 lb 12.8 oz) 04/02/2024 6:00 AM [employer] Height 177.8 cm (5' 10) 04/01/2024 6:57 AM [employer] Body Mass Index 22.21 04/01/2024 6:57 AM [employer] Plan of Treatment Not on file Medical Devices Implanted Type Area Resort Host Device Identifier Shelf Expiration Date Model / Serial / Lot Biotronik Ra Lead [id number] Implanted:Sedrick Hand MD (Quantity not on file) Lead Heart Biotronik [id number] / [id number] / Biotronik Rv Lead [id number] Implanted:Sedrick Hand MD (Quantity not on file) Lead Heart Biotronik [id number] / [id number] / Biotronik Pm Edora 8 Dr-T-05/24/2022 Implanted:05/24 by Sedrick Pan MD (Quantity not on file) Pacemaker Chest Wall Biotronik [id number] / [id number] / Loop Recorder Left: Chest Wall Depuy Orthopaed[employer] Inc Delta Xtend Shoulder +9mm Spacer Humeral Sterile [id number] - [id number] Implanted:Qty: 1 on 09/07/2021 by Marcus Hernández MD at [facility] Right: Shoulder Depuy Orthopaed[employer] Inc [id number] 08/19/2025 [id number] / / [id number] Depuy [employer] Delta Xtend 4.5mm 36mm Lock Shoulder Glenoid Screw Bone Metaglene [id number] - [id number] Implanted:Qty: 1 on 09/07/2021 by Marcus Hernández MD at [facility] Right: Shoulder Depuy Orthopaed[employer] Inc [id number] 05/21/2026 [id number] / / [id number] Depuy Synthes Sales Inc [id number] Metaglene 10mm Long Peg Fixation - [id number] Implanted:Qty: 1 on 09/07/2021 by Marcus Hernández MD at [facility] Right: Shoulder Depuy [employer] [id number] 03/21/2026 [id number] / / [id number] Depuy Orthopaed[employer] Delta Xtend 4.5mm 30mm Lock Shoulder Glenoid Screw Bone Metaglene [id number] - [id number] Implanted:Qty: 1 on 09/07/2021 by Marcus Hernández MD at [facility] Right: Shoulder [employer]opa[employer] Inc [id number] 05/21/2025 [id number] / / [id number] Depuy Orthopaed[employer] Inc [id number] Component Glenoid Delta Xtend +6mm Od42mm - [id number] Implanted:Qty: 1 on 09/07/2021 by Marcus Hernández MD at [facility] Right: Shoulder [employer] Inc [id number] 07/20/2023 [id number] / / [id number] Depuy [employer] Delta Xtend 4.5mm 42mm Lock Shoulder Glenoid Screw Bone Metaglene [id number] - [id number] Implanted:Qty: 1 on 09/07/2021 by Marcus Hernández MD at [facility] Right: Shoulder Depuy Orthopaed[employer] Inc [id number] 05/21/2026 [id number] / / [id number] Depuy Orthopaed[employer] Inc Global Unite 14mm 129mm Modular Shoulder Standard Stem Humeral [id number] - [id number] Implanted:Qty: 1 on 09/07/2021 by Marcus Hernández MD at [facility] Right: Shoulder Depuy Orthopaed[employer] Inc [id number] 06/21/2031 [id number] / / [id number] Depuy Orthopaedics Inc [id number] Implant Shldr Xtend Modecc 145epi Por Sz1 Rt - [id number] Implanted:Qty: 1 on 09/07/2021 by Marcus Hernández MD at [facility] Right: Shoulder Depuy Orthopaed[employer] Inc [id number] 06/21/2030 [id number] / / [id number] Depuy Orthopaed[employer] Inc Delta Xtend 42mm Shoulder +3mm Standard Cup Humeral Polyethylene Latex Free [id number] - [id number] Implanted:Qty: 1 on 09/07/2021 by Marcus Hernández MD at [facility] Right: Shoulder Depuy Orthopaed[employer] Inc [id number] 03/21/2026 [id number] / / [id number] Rincon V[employer] System Closure Repair Femoral Artery Suture Mediated Perclose Prostyle 77968-73 - [id number] Implanted:Qty: 1 on 04/01/2024 by Nuris Thompson MD at [facility] [employer] 12/19/2025 [id number] / / [id number] Rincon Vascular System Closure Repair Femoral Artery Suture Mediated Perclose Prostyle 45394-00 - [id number] Implanted:Qty: 1 on 04/01/2024 by Nuris Thompson MD at [facility] [employer] 12/19/2025 [id number] / / [id number] Tovar Lifesciences Daly 3 Commander Tovar 26mm Transcatheter Ultra Low Profile [id number] - [id number] - [id number] Implanted:Qty: 1 on 04/01/2024 by Nuris Thompson MD at [facility] [employer] 10/25/2026 [id number] / [id number] / Terumo Medical Yann Angio-Seal Vip 6fr Closere Device [id number] - [id number] Implanted:Qty: 1 on 04/01/2024 by Nuris Thompson MD at [facility] [employer]Islet [employer] Medical Yann [id number] / / Procedures Procedure Name Priority Date/Time [...] MD LAB BLOOD ORDERABLES F inal Result [facility] [address] [facility] Department [place] [address] * (ABNORMAL) Differential, auto (09/05/2024 12:31 PM CDT) Neutrophil abs 6.01 1.50 - 6.50 K/cumm Imm gran abs 0.04 0.00 - 0.10 K/cumm [facility] Lymphocyte abs 2.70 0.80 - 3.30 K/cumm [facility] Monocyte abs 0.87(H) 0.20 - 0.80 K/cumm [facility] Eosinophil abs 0.38 0.00 - 0.50 K/cumm [facility] Basophil abs 0.07 0.00 - 0.10 K/cumm [facility] Neutrophil pct 59.7 % [facility] Comment: Interpretive Data Percent cell count reference ranges are not reported, since discordance with absolute values may lead to misinterpretation of CBC data. Current Interpretive Data was last revised on 2017. Imm gran pct 0.4 % [facility] Comment: Interpretive Data Percent cell count reference ranges are not reported, since discordance with absolute values may lead to misinterpretation of CBC data. Current Interpretive Data was last revised on 2017. Lymphocyte pct 26.8 % [facility] Comment: Interpretive Data Percent cell count reference ranges are not reported, since discordance with absolute values may lead to misinterpretation of CBC data. Current Interpretive Data was last revised on 2017. Monocyte pct 8.6 % [facility] Comment: Interpretive Data Percent cell count reference ranges are not reported, since discordance with absolute values may lead to misinterpretation of CBC data. Current Interpretive Data was last revised on 2017. Eosinophil pct 3.8 % [facility] Comment: Interpretive Data Percent cell count reference ranges are not reported, since discordance with absolute values may lead to misinterpretation of CBC data. Current Interpretive Data was last revised on 2017. Basophil pct 0.7 % [facility] Comment: Interpretive Data Percent cell count reference ranges are not reported, since discordance with absolute values may lead to misinterpretation of CBC data. Current Interpretive Data was last revised on 2017. Blood 09/05/2024 12:3 1 PM CDT 09/05/2024 6:46 PM CDT Nuris Thompson MD LAB BLOOD ORDERABLES F inal Result Performing Organization Address City/[facility]/ZIP Co de Phone Number THERESA SOLIS [address] [place] [address] * (ABNORMAL) Iron profile w/ IBC (09/05/2024 12:31 PM CDT) Iron 22(L) 50 - 150 mcg/dl TIBC 470(H) 250 - 400 mcg/dL [facility] Transferrin saturation 5(L) 20 - 50 % [facility] Blood 09/05/2024 12:3 1 PM CDT 09/05/2024 6:46 PM CDT Nuris Thompson MD LAB BLOOD ORDERABLES F inal Result Performing Organization Address [facility] de Phone Number THERESA SOLIS [address] [place] [address] * (ABNORMAL) CBC with auto differential (09/05/2024 12:31 PM CDT) WBC 10.07(H) 3.80 - 9.90 K/cumm Hgb 9.1(L) 13.0 - 17.5 g/dL [facility] Hct 33.7(L) 38.9 - 50.3 % [facility] Plt 407(H) 150 - 400 K/cumm [facility] MPV 9.9 9.1 - 12.3 fL [facility] RBC 4.17(L) 4.30 - 5.80 M/cumm [facility] MCV 80.8(L) 81.3 - 96.4 fL [facility] MCH 21.8(L) 27.1 - 33.3 pg [facility] MCHC 27.0(L) 32.3 - 35.7 g/dL [facility] CV 17.7(H) 11.1 - 14.9 % [facility] SD 52.2(H) 35.7 - 48.1 fL [facility] NRBC abs 0.00 0.00 - 0.01 K/cumm [facility] Blood 09/05/2024 12:3 1 PM CDT 09/05/2024 6:46 PM CDT Nuris Thompson MD LAB BLOOD ORDERABLES F inal Result Performing Organization Address City/[facility] Co de Phone Number [place] [address] [facility] [place] [address] * Vitamin D 25 hydroxy (09/05/2024 12:31 PM CDT) Pathologist [facility] Vitamin D 25-OH 52 30 - 80 ng/mL Blood 09/05/2024 12:3 1 PM CDT 09/05/2024 6:46 PM CDT Nuris Thompson MD LAB BLOOD ORDERABLES F inal Result Performing Organization Address [facility] Co de Phone Number [facility] [address] [address] [facility] [place] [address] * T3, free (09/05/2024 12:31 PM CDT) Pathologist [facility] Free T3 3.1 2.0 - 4.4 pg/mL Blood 09/05/2024 12:3 1 PM CDT 09/05/2024 6:46 PM CDT Nuris Thompson MD LAB BLOOD ORDERABLES F inal Result Performing Organization Address [facility] Co de Phone Number [facility] [address] [address] [facility] [place] [address] * TSH (09/05/2024 12:31 PM CDT) Pathologist [facility] Thyroid Stimulating Hormone 1.62 0.30 - 4.20 mcIUnit/mL Blood 09/05/2024 12:3 1 PM CDT 09/05/2024 6:46 PM CDT Nuris Thompson MD LAB BLOOD ORDERABLES F inal Result Performing Organization Address [facility] Co de Phone Number [facility] [address] [address] [facility] [place] [address] * (ABNORMAL) T4, free (09/05/2024 12:31 PM CDT) [facility] Free T4 0.85(L) 0.90 - 1.70 ng/dL Blood 09/05/2024 12:3 1 PM CDT 09/05/2024 6:46 PM CDT Nuris Thompson MD LAB BLOOD ORDERABLES F inal Result Performing Organization Address [facility] Co de Phone Number [place]ESA [address] [place] [address] * Ferritin (09/05/2024 12:31 PM CDT) [facility] Ferritin 32 30 - 400 ng/mL Blood 09/05/2024 12:3 1 PM CDT 09/05/2024 6:46 PM CDT Nuris Thompson MD LAB BLOOD ORDERABLES F inal Result Performing Organization Address [facility] Co de Phone Number [facility] [address] [address] [facility] [place] [address] * (ABNORMAL) Lipid panel (09/05/2024 12:31 PM CDT) [facility] Cholesterol 126 30 - 199 mg/dL Comment: [...] MD LAB BLOOD ORDERABLES F inal Result [facility] [address] Department [place] [address] * (ABNORMAL) Comprehensive metabolic panel (09/05/2024 12:31 [...] LAB BLOOD ORDERABLES F inal Result [facility]A [place] [address] Department [place] [address] from Last 3 Months Insurance MEDICARE [facility] MEDICARE [facility] AET MEDICARE MEDICARE [facility] T MEDICARE Advance Directives For more information, please contact: [phone] * Full Code (Latest Code Status on File) Date Activated Date Inactivated Comments 09/07/2021 4:41 PM 09/08/2021 3:23 PM Care Teams Charge Aide Relationship Specialty Start Date End Date Mikey Olivera MD [address] [place] [address] PCP - General 08/19/16 Nuris Thompson MD [address] [place] [address] Consulting Physician Cardiovascular Disease 04/02/24 [place] [address] [address] [address] Consulting Physician Urology 04/03/24
--- OUTSIDE RECORDS SUMMARY | 2024-11-07 12:12 | XMS_ITS | Clinical Summary ---
Author Organization [facility] Address [address] [place] [address] Care Team Providers Care Web Ui Designer Name Role Phone Mikey Olivera MD Primary Care Provider [phone] [facility],non-owned Affiliates and Associated Physician Practices is amultiple site organization consisting of ambulatory clinics and hospital sitesin [place], [place], [place] and [place]. This disclosure is being madepursuant to the Care Everywhere program and may not contain all information available regarding this patient. Last updated [address].[facility] Allergies No known active allergies Medications * [...] this topic Medical Devices Implanted Type Area Child Development Teacher Device Identifier Shelf Expiration Date Model / Serial / Lot Wedge Aug [id number] Biosync Puja Rodriguez Implanted:Qty: 1 on 12/31/2021 by Angus Millan DPM at [facility] Right: Foot [employer] Inc 08/24/2023 [id number] Wedge Dec 20mmx6.5mm Biosync Puja Cttn Implanted:Qty: 1 on 12/31/2021 by Angus Millan DPM at [facility] Right: Foot [employer] 07/20/2023 [id number] Insurance MEDICARE [facility] * Guarantor: TRISTAN CRAVEN Account Type Relation to Patient Date of Phone Billing Address Personal/Family [address] [place] [address] MEDICARE ANTHEM * Guarantor: TRISTAN CRAVEN Account Type Relation to Patient Date of Phone Billing Address Personal/Family [address] [place] [address] MEDICARE ANTHEM * Guarantor: TRISTAN CRAVEN Account Type Relation to Patient Date of Phone Billing Address Personal/Family [address] [place] [address] MEDICARE Member Subscriber Plan / Payer (Ef fective for All Dates) Name:Bruce Tristan Member ID:[id number] Relation to Subscriber:Self Name:Tristan Craven Subscriber ID:[id number] Payer ID:Not on file Group ID:Not on file Type:Medicare Address: [place] [id number] ANTHEM Care Teams Web Ui Designer Relationship Specialty Start Date End Date Mikey Olivera MD [address] [id number] PCP - General Internal Medicine 12/31/21
--- OUTSIDE RECORDS SUMMARY | 2024-11-07 12:12 | XMS_ITS | Clinical Summary ---
Author Organization [facility] [address] Address [address] [place] [address] Care Team Providers Care Drug Inspector Name Role Phone Mikey Olivera MD Primary Care Provide r Nuris Thompson MD Unavailable [phone] Ramos Fong MD Unavailable [phone] Allergies Active Allergy Reactions Criticality Noted Date [...] (08/16/2021): Added automatically from request for surgery [id number] Status post placement of implantable loop record er 10/22/2019 Overview (10/22/2019): [employer] III-Imp Loop Recorder. Dx; PAF, Presynope, Bradycardia. DOI 10/22/2019-[facility]. [employer] remote home monitoring. Near syncope 10/18/2019 Nonsustained [...] (08/16/2021): Added automatically from request for surgery [id number] Visit for wound check 10/29/20192022 Postural dizziness with presyncope 12/30/2018 10/18/2019 History of open heart surgery 10/20/2016 08/17/2021 Overview (10/21/2016): S/P ablation of atrial fibrillation alf current use of ant icoagulant therapy 10/29/2015 [...] Team Description 09/05/2024 12:25 PM CDT Lab [address] [address] from Last 3 Months Surgical [...] Other Brother 2 Heart transplan t after [place]; Other Father complications a fter stroke; Cause [...] on file Legal Sex Male 8:20 AM COLLAR PACKER Gender Identity Not on file Sexual Orientation Not on file Obstetrics History Last Filed Vital Signs Vital Sign Reading Time Taken Comments Blood Pressure 162/73 04/03/2024 7:48 AM COLLAR PACKER Pulse 61 04/03/2024 7:48 AM COLLAR PACKER Temperature 36.7 C (98 F) 04/03/2024 7:48 AM COLLAR PACKER Respiratory Rate 18 04/03/2024 7:48 AM COLLAR PACKER Oxygen Saturation 100% 04/03/2024 7:48 AM COLLAR PACKER Inhaled Oxygen Concentration - - Weight 70.2 kg (154 lb 12.8 oz) 04/02/2024 6:00 AM COLLAR PACKER Height 177.8 cm (5' 10) 04/01/2024 6:57 AM COLLAR PACKER Body Mass Index 22.21 04/01/2024 6:57 AM COLLAR PACKER Plan of Treatment Health Maintenance Due Date [...] 05/03/2017, 04/21 Medical Devices Implanted Type Area Money Market Clerk Device Identifier Shelf Expiration Date Model / Serial / Lot Biotronik Ra Lead [id number] Implanted:Sedrick Hand MD (Quantity not on file) Lead Heart Biotronik [id number] / [id number] / Biotronik Rv Lead [id number] Implanted:Sedrick Hand MD (Quantity not on file) Lead Heart Biotronik [id number] / [id number] / Biotronik Pm Edora 8 Dr-T-05/24/2022 Implanted:05/24 by Sedrick Pan MD (Quantity not on file) Pacemaker Chest Wall Biotronik [id number] / [id number] / Loop Recorder Left: Chest Wall Depuy Orthopaed[employer] Inc Delta Xtend Shoulder +9mm Spacer Humeral Sterile [id number] - [id number] Implanted:Qty: 1 on 09/07/2021 by Marcus Hernández MD at [facility] Right: Shoulder [employer] Orth[employer]ed[employer] Inc [id number] 08/19/2025 [id number] / / [id number] Dep[employer] Delta Xtend 4.5mm 36mm Lock Shoulder Glenoid Screw Bone Metaglene [id number] - [id number] Implanted:Qty: 1 on 09/07/2021 by Marcus Hernández MD at [facility] Right: Shoulder [employer] Orth[employer] Inc [id number] 05/21/2026 [id number] / / [id number] Depuy Synthes [employer] Inc [id number] Metaglene 10mm Long Peg Fixation - [id number] Implanted:Qty: 1 on 09/07/2021 by Marcus Hernández MD at [facility] Right: Shoulder [employer] [id number] 03/21/2026 [id number] / / [id number] Dep[employer] Delta Xtend 4.5mm 30mm Lock Shoulder Glenoid Screw Bone Metaglene [id number] - [id number] Implanted:Qty: 1 on 09/07/2021 by Marcus Hernández MD at [facility] Right: Shoulder [employer] Orth[employer] Inc [id number] 05/21/2025 [id number] / / [id number] Dep[employer]ed[employer] Inc [id number] Component Glenoid Delta Xtend +6mm Od42mm - [id number] Implanted:Qty: 1 on 09/07/2021 by Marcus Hernández MD at [facility] Right: Shoulder [employer] Inc [id number] 07/20/2023 [id number] / / [id number] [employer] Delta Xtend 4.5mm 42mm Lock Shoulder Glenoid Screw Bone Metaglene [id number] - [id number] Implanted:Qty: 1 on 09/07/2021 by Marcus Hernández MD at [facility] Right: Shoulder [employer] Orth[employer] Inc [id number] 05/21/2026 [id number] / / [id number] Depuy Orth[employer]ed[employer] Inc Global Unite 14mm 129mm Modular Shoulder Standard Stem Humeral [id number] - [id number] Implanted:Qty: 1 on 09/07/2021 by Marcus Hernández MD at [facility] Right: Shoulder [employer] Orth[employer]ed[employer] Inc [id number] 06/21/2031 [id number] / / [id number] Depuy Orth[employer]ed[employer] Inc [id number] Implant Shldr Xtend Modecc 145epi Por Sz1 Rt - [id number] Implanted:Qty: 1 on 09/07/2021 by Marcus Hernández MD at [facility] Right: Shoulder [employer] Inc [id number] 06/21/2030 [id number] / / [id number] Depuy [employer] Delta Xtend 42mm Shoulder +3mm Standard Cup Humeral Polyethylene Latex Free [id number] - [id number] Implanted:Qty: 1 on 09/07/2021 by Marcus Hernández MD at [facility] Right: Shoulder [employer] Inc [id number] 03/21/2026 [id number] / / [id number] Rincon V[employer] System Closure Repair Femoral Artery Suture Mediated Perclose Prostyle 54788-41 - [id number] Implanted:Qty: 1 on 04/01/2024 by Nuris Thompson MD at [facility] [employer] 12/19/2025 [id number] / / [id number] Rincon V[employer] System Closure Repair Femoral Artery Suture Mediated Perclose Prostyle 05082-50 - [id number] Implanted:Qty: 1 on 04/01/2024 by Nuris Thompson MD at [facility] [employer] 12/19/2025 [id number] / / [id number] Tovar Lif[employer]iences Daly 3 Commander Tovar 26mm Transcatheter Ultra Low Profile [id number] - [id number] - [id number] Implanted:Qty: 1 on 04/01/2024 by Nuris Thompson MD at [facility] [employer] 10/25/2026 [id number] / [id number] / Global [employer] Angio-Seal Vip 6fr Closere Device [id number] - [id number] Implanted:Qty: 1 on 04/01/2024 by Nuris Thompson MD at [facility] [employer] [id number] / / Procedures Procedure Name Priority Date/Time [...] LAB BLOOD ORDERABLES F inal Result THERESA [address] [address] Department [place] [address] * (ABNORMAL) Differential, auto (09/05/2024 12:31 PM CDT) Neutrophil abs 6.01 1.50 - 6.50 K/cumm Imm gran abs 0.04 0.00 - 0.10 K/cumm [facility] Lymphocyte abs 2.70 0.80 - 3.30 K/cumm [facility] Monocyte abs 0.87(H) 0.20 - 0.80 K/cumm [facility] Eosinophil abs 0.38 0.00 - 0.50 K/cumm [facility] Basophil abs 0.07 0.00 - 0.10 K/cumm [facility] Neutrophil pct 59.7 % [facility] Comment: Interpretive Data Percent cell count reference ranges are not reported, since discordance with absolute values may lead to misinterpretation of CBC data. Current Interpretive Data was last revised on 2017. Imm gran pct 0.4 % [facility] Comment: Interpretive Data Percent cell count reference ranges are not reported, since discordance with absolute values may lead to misinterpretation of CBC data. Current Interpretive Data was last revised on 2017. Lymphocyte pct 26.8 % [facility] Comment: Interpretive Data Percent cell count reference ranges are not reported, since discordance with absolute values may lead to misinterpretation of CBC data. Current Interpretive Data was last revised on 2017. Monocyte pct 8.6 % [facility] Comment: Interpretive Data Percent cell count reference ranges are not reported, since discordance with absolute values may lead to misinterpretation of CBC data. Current Interpretive Data was last revised on 2017. Eosinophil pct 3.8 % [facility] Comment: Interpretive Data Percent cell count reference ranges are not reported, since discordance with absolute values may lead to misinterpretation of CBC data. Current Interpretive Data was last revised on 2017. Basophil pct 0.7 % [facility] Comment: Interpretive Data Percent cell count reference ranges are not reported, since discordance with absolute values may lead to misinterpretation of CBC data. Current Interpretive Data was last revised on 2017. Blood 09/05/2024 12:3 1 PM CDT 09/05/2024 6:46 PM CDT us Nuris Thompson MD LAB BLOOD ORDERABLES F inal Result THERESA [address] [address] [place] [address] * (ABNORMAL) Iron profile w/ IBC (09/05/2024 12:31 PM CDT) Iron 22(L) 50 - 150 mcg/dl TIBC 470(H) 250 - 400 mcg/dL [facility] Transferrin saturation 5(L) 20 - 50 % [facility] Blood 09/05/2024 12:3 1 PM CDT 09/05/2024 6:46 PM CDT Nuris Thompson MD LAB BLOOD ORDERABLES F inal Result THERESA [address] [address] Department [place] [address] * (ABNORMAL) CBC with auto differential (09/05/2024 12:31 PM CDT) Pathologist [facility] WBC 10.07(H) 3.80 - 9.90 K/cumm Hgb [...] ORDERABLES F inal Result Performing Organization Address [facility]/ZIP Co de Phone Number THERESA SOLIS [address] [address] [facility] [place] [address] * Vitamin D 25 hydroxy (09/05/2024 12:31 PM CDT) Vitamin D 25-OH 52 30 - 80 ng/mL Blood 09/05/2024 12:3 1 PM CDT 09/05/2024 6:46 PM CDT Nuris Thompson MD LAB BLOOD ORDERABLES F inal Result Performing Organization Address [facility] Co de Phone Number [facility] [address] [address] [facility] [place] [address] * T3, free (09/05/2024 12:31 PM CDT) Free T3 3.1 2.0 - 4.4 pg/mL Blood 09/05/2024 12:3 1 PM CDT 09/05/2024 6:46 PM CDT Nuris Thompson MD LAB BLOOD ORDERABLES F inal Result Performing Organization Address [facility] Co de Phone Number THERESA [address] [address] [facility] [place] [address] * TSH (09/05/2024 12:31 PM CDT) Thyroid Stimulating Hormone 1.62 0.30 - 4.20 mcIUnit/mL Blood 09/05/2024 12:3 1 PM CDT 09/05/2024 6:46 PM CDT Nuris Thompson MD LAB BLOOD ORDERABLES F inal Result Performing Organization Address City/[facility]/ZIP Co de Phone Number THERESA [address] [address] [facility] [place] [address] * (ABNORMAL) T4, free (09/05/2024 12:31 PM CDT) Free T4 0.85(L) 0.90 - 1.70 ng/dL Blood 09/05/2024 12:3 1 PM CDT 09/05/2024 6:46 PM CDT Nuris Thompson MD LAB BLOOD ORDERABLES F inal Result Performing Organization Address [facility] Co de Phone Number [facility] [address] [address] [place] [address] * Ferritin (09/05/2024 12:31 PM CDT) [facility] Ferritin 32 30 - 400 ng/mL Blood 09/05/2024 12:3 1 PM CDT 09/05/2024 6:46 PM CDT Nuris Thompson MD LAB BLOOD ORDERABLES F inal Result Performing Organization Address [facility] de Phone Number [facility] [address] [address] [place] [address] * (ABNORMAL) Lipid panel (09/05/2024 12:31 PM CDT) [facility] Cholesterol 126 30 - 199 mg/dL Comment: [...] MD LAB BLOOD ORDERABLES F inal Result [facility] [address] [address] Department [place] [address] * (ABNORMAL) Comprehensive metabolic panel (09/05/2024 12:31 PM CDT) Sodium 134(L) 135 - 145 mmol/L Potassium, pl 4.5 3.3 - 4.9 mmol/L [facility] Chloride 104 97 - 110 mmol/L [facility] CO2 23 22 - 32 mmol/L [facility] Anion gap 7 2 - 15 mmol/L [facility] BUN 17 6 - 25 mg/dL [facility] Creatinine 0.87 0.80 - 1.30 mg/dL [facility] Glucose 76 70 - 199 mg/dL [facility] Comment: Interpretive Data Fasting glucose [...] BLOOD ORDERABLES F inal Result THERESA SOLIS [address] [address] Department [place] [address] from Last 3 Months Insurance MEDICARE FORMERLY [facility] MEDICARE FORMERLY [facility] MEDICARE MEDICARE [employer] [place] [employer] MEDICARE Advance Directives For more information, please contact: [phone] * Full Code (Latest Code Status on File) Date Activated Date Inactivated Comments 09/07/2021 4:41 PM 09/08/2021 3:23 PM Care Teams Drug Inspector Relationship Specialty Start Date End Date Mikey Olivera MD [address] [place] [address] PCP - General 08/19/16 Nuris Thompson MD [address] [place] [address] Consulting Physician Cardiovascular Disease 04/02/24 [place] [address] [facility] [address] [place] [address] Consulting Physician Urology 04/03/24
[2024-11-07 12:32] LABS: INR 2.2; Prothrombin Time 23.9 Seconds (11.1-14.7)
== END 2024-11-07 11:19 | disposition home or self-care (01) ==
PROVIDERS: PCP Emergency Medicine
DX: N40.1 Benign prostatic hyperplasia with lower urinary tract symptoms (principal); Z79.01 Long term (current) use of anticoagulants
CPT/HCPCS: 36415; 85610

== ENCOUNTER 2025-01-24 10:55 | Outpatient (CLI) | payer MEDICARE, SELFPAY ==
--- NOTE | ~2025-01-24 | XR_ITS ---
Clinical history:Pain in the right knee EXAM:X-ray knee right 3 views TECHNIQUE:3 images of the right knee were obtained. Comparisons:None available FINDINGS: Bones appear osteopenic. No fracture. No dislocation. Severe narrowing of the patellofemoral joint. Soft tissue swelling about the right knee. Small suprapatellar effusion. Moderate narrowing of the medial and lateral compartments. Chondrocalcinosis in the medial and lateral compartments. Vascular calcifications are present. There are a few probable loose bodies posterior to the right knee, the largest measures 1.5 cm in greatest dimension. IMPRESSION: 1. No fracture. 2. Severe narrowing of the patellofemoral joint. If symptoms persist or worsen, consider a short-term follow-up study or additional imaging for further assessment. Please see above for full details. Reviewed, dictated and finalized at location Q. IMPRESSION: 1. No fracture. 2. Severe narrowing of the patellofemoral joint. If symptoms persist or worsen, consider a short-term follow-up study or additio nal imaging for further assessment. Please see above for full details.
--- OUTSIDE RECORDS SUMMARY | 2025-01-24 11:25 | XMS_ITS | Clinical Summary ---
Author Organization [facility] Address [address] [place] [address] Care Team Providers Care Grief Counselor Name Role Phone Mikey Olivera MD Primary Care Provider [phone] Encounters Date Type Department Care Team Description 10/28/2024 8:30 AM CDT - 10/28/2024 11:59 PM CDT Hospital Encounter [facility] [address] [place] [address] Mikey Olivera MD Discharge Disposition: Home or Self Care (Routine Discharge) 10/28/2024 Orders Only [facility] [address] [place] [id number] Mikey Olivera MD 10/28/2024 Travel from Last 3 Months Social History Tobacco Use Types Packs/Day Years Used Date Smoking Tobacco: Never Assessed Sex and Gender Information Value Date Recorded Sex Assigned at Not on file Legal Sex Male 7:54 AM CDT Gender Identity Not on file Sexual Orientation Not on file Plan of Treatment Health Maintenance Due Date Last Done Comments DTaP, Tdap and Td Vaccines ( 1 - Tdap) 1961 Zoster Vaccines (1 of 2) 1992 Annual Medicare Wellness Visit 09/26/2007 RSV Immunization or 60+ Years (1 - 1-dose 75+ series) 2017 COVID-19 Vaccine ( - 2024-2 6 season) 2025 04/05/2021, 07/14/2020, 06/16/2020 Pneumococcal Vaccine: 50+ Years Completed 05/03/2017, 05/05/2015 Meningococcal B Vaccine Aged Out No l onger eligible based on patient's age to complete this topic Meningococcal Vaccine Aged Out No jenni sofie eligible based on patient's age to complete this topic RSV Immunizations Under 20 Months Aged Out No longer eligible b ased on patient's age to complete this topic Procedures Procedure Name Priority Date/Time Associated Diagnosis Comments COMPREHENSIVE METABOLIC PANEL Routine 10/28/2024 8:40 AM CDT Primary hypertension Vitamin D deficiency Hyperlipidemia VITAMIN D, 25 OH Routine 10/28/2024 8:40 AM CDT Primary hypertension Vitamin D deficiency Hyperlipidemia CBC W/DIFF AUTOMATED Routine 10/28/2024 8:40 AM CDT Primary hypertension Vitamin D deficiency Hyperlipidemia LIPID PANEL Routine 10/28/2024 8:40 AM CDT Primary hypertension Vitamin D deficiency Hyperlipidemia from Last 3 Months Results * (ABNORMAL) COMPREHENSIVE METABOLIC PANEL (10/28/2024 8:40 AM CDT) [facility] GLUCOSE 98 70 - 99 MG/DL 10/28/2024 9:27 AM CDT [facility] BUN 17 7 - 18 MG/DL 10/28/2024 9:27 AM CDT [facility] CREATININE S/P/B 1.18 0.50 - 1.20 MG/DL 10/28/2024 9:27 AM CDT [facility] SODIUM S/P/B 130(L) 136 - 145 MMOL/L 10/28/2024 9:27 AM CDT [facility] POTASSIUM S/P/B 4.3 3.5 - 5.1 MMOL/L 10/28/2024 9:27 AM CDT [facility] CHLORIDE S/P/B 98(L) 100 - 108 MMOL/L 10/28/2024 9:27 AM CDT [facility] CO2 28.0 21.0 - 32.0 MMOL/L 10/28/2024 9:27 AM CDT [facility] CALCIUM S/P/B 9.2 8.5 - 10.1 MG/DL 10/28/2024 9:27 AM CDT [facility] BILIRUBIN TOTAL S/P/B 0.4 0.2 - 1.2 MG/DL 10/28/2024 9:27 AM CDT [facility] Comment: THIS ASSAY IS NOT RECOMMENDED FOR PATIENTS UNDERGOING TREATMENT WITH ELTROMBOPAG DUE TO THE POTENTIAL FOR FALSELY ELEVATED RESULTS. TOTAL PROTEIN S/P/B 7.7 6.4 - 8.2 G/DL 10/28/2024 9:27 AM CDT [facility] ALBUMIN S/P/B 3.7 3.4 - 5.0 G/DL 10/28/2024 9:27 AM CDT [facility] AST 32 15 - 37 U/L 10/28/2024 9:27 AM T [facility] ALT 34 16 - 60 U/L 10/28/2024 9:27 AM T [facility] ALKALINE PHOSPHATASE S/P/B 107 50 - 136 U/L 10/28/2024 9:27 AM T [facility] ANION GAP 4.0(L) 5.0 - 15.0 MMOL/L 10/28/2024 9:27 AM T [facility] BUN CREATININE RATIO 14.4 6 - 26 10/28/2024 9:27 AM T [facility] A/G RATIO 0.9(L) 1.0 - 2.5 RATIO 10/28/2024 9:27 AM T [facility] GFR ESTIMATE 62(L) >90 ML/MIN/1.7 3 M2 10/28/2024 9:27 AM T [facility] Comment: NOTE: eGFR is not calculated for patients <18 years of age. This is an estimated GFR calculation using the new CKD EPI creatinine equation without race and so does not require a correction factor for race. This estimated GFR should not be used for calculating drug doses. 10/28/2024 8:40 AM CDT Mikey Olivera MD LABORATORY Final Result Performing Organization Address City/[facility]/ZIP Co de Phone Number [facility] [address] [place] [address], [place] * (ABNORMAL) LIPID PANEL (10/28/2024 8:40 AM CDT) CHOLESTEROL 112 <200 MG/DL 10/28/2024 3:04 PM CDT [facility] TRIGLYCERIDES 187(H) <150 MG/DL 10/28/2024 3:04 PM CDT [facility] HDL 38(L) >40.0 MG/DL 10/28/2024 3:04 PM CDT [facility] LDL (CALCULATED) 37 <100 MG/DL 10/28/2024 3:04 PM CDT [facility] NON HDL CHOLESTEROL 74 <130 MG/DL 10/28/2024 3:04 PM CDT [facility] CHOL/HDL RATIO 2.9 0.0 - 4.5 10/28/2024 3:04 PM CDT [facility] VLDL CALCULATION 37 5 - 55 MG/DL 10/28/2024 3:04 PM CDT [facility] LIPID INTERPRETATION 10/28/2024 3:04 PM T [facility] Comment: [facility] CONCENSUS REPORT RECOMMENDATIONS: ADULT CHILD LOW RISK: CHOLESTEROL <200 <170 TRIGLYCERIDE <150 --- HDL >=60 --- LDL <100 <110 BORDERLINE: CHOLESTEROL 200-239 170-199 TRIGLYCERIDE 150-199 --- HDL 40-59 --- LDL 100-159 110-129 HIGH RISK: CHOLESTEROL >=240 >=200 TRIGLYCERIDE >=200 --- HDL <40 --- LDL >=160 >=130 10/28/2024 8:40 AM CDT Mikey Olivera MD LABORATORY Final Result [facility] [address] [place] [address], [place] [phone] * (ABNORMAL) CBC W/DIFF AUTOMATED (10/28/2024 8:40 AM CDT) WBC 15.04(H) 4.50 - 11.00 x10'3/uL 10/28/2024 8:46 AM CDT [facility] RBC 4.78 4.50 - 5.90 x10'6/uL 10/28/2024 8:46 AM CDT [facility] HGB 12.9(L) 14.0 - 18.0 G/DL 10/28/2024 8:46 AM CDT [facility] HCT 41.0(L) 43.0 - 54.0 % 10/28/2024 8:46 AM CDT [facility] MCV 85.8 80.0 - 100.0 FL 10/28/2024 8:46 AM CDT [facility] MCH 27.0 26.0 - 34.0 PG 10/28/2024 8:46 AM CDT [facility] MCHC 31.5 31.0 - 37.0 G/DL 10/28/2024 8:46 AM CDT [facility] RDW 21.5(H) 11.6 - 14.8 % 10/28/2024 8:46 AM CDT [facility] PLT 282 130 - 400 x10'3/uL 10/28/2024 8:46 AM CDT [facility] MPV 9.2 7.0 - 12.0 FL 10/28/2024 8:46 AM CDT [facility] CBC COMMENT AUTOMATED RBC MORPHOLOGY AND PLATELET EVALUATION NORMAL 10/28/2024 8:46 AM CDT [facility] NEUTROPHILS % 74.6(H) 40.0 - 74.0 % 10/28/2024 8:46 AM CDT [facility] LYMPHOCYTES % 13.7(L) 14.0 - 46.0 % 10/28/2024 8:46 AM CDT [facility] MONOCYTES % 9.2 4.0 - 13.0 % 10/28/2024 8:46 AM CDT [facility] EOSINOPHILS 1.8 0.0 - 7.0 % 10/28/2024 8:46 AM CDT [facility] BASOPHILS 0.4 0.0 - 3.0 % 10/28/2024 8:46 AM CDT [facility] IMMATURE GRANS % 0.3 0.0 - 0.43 % 10/28/2024 8:46 AM CDT [facility] NRBC % 0.0 % 10/28/2024 8:46 AM CDT [facility] ABS. NEUTROPHILS TOTAL 11.22(H) 1.69 - 7.81 x10'3/uL 10/28/2024 8:46 AM CDT [facility] ABS. LYMPHOCYTES 2.06 0.21 - 5.42 x10'3/uL 10/28/2024 8:46 AM CDT [facility] ABS. MONOCYTES 1.39(H) 0.04 - 1.37 x10'3/uL 10/28/2024 8:46 AM CDT [facility] ABS. EOSINOPHILS 0.27 0.00 - 0.68 x10'3/uL 10/28/2024 8:46 AM CDT [facility] ABS. BASOPHILS 0.06 0.00 - 0.08 x10'3/uL 10/28/2024 8:46 AM CDT [facility] ABS. IMMATURE GRANULOCYTES 0.04 0.00 - 0.06 x10'3/uL 10/28/2024 8:46 AM T [facility] ABS. NUCLEATED RBC'S 0.00 0.00 - 0.01 x10'3/uL 10/28/2024 8:46 AM T [facility] 10/28/2024 8:40 AM CDT Mikey Olivera MD LABORATORY Final Result [facility] [address] [place] [address], * VITAMIN D, 25 OH (10/28/2024 8:40 AM CDT) VITAMIN D 25 HYDROXY S/P/B 65 30 - 100 NG/ML 10/28/2024 3:11 PM CDT [facility] Comment: INTERPRETATION DEFICIENT <20 INSUFFICIENT 20-29 SUFFICIENT 30-100 10/28/2024 8:40 AM CDT Mikey Olivera MD LABORATORY Final Result Performing Organization Address City/[facility]/ZIP Co de Phone Number [facility] [address] [place] [address], from Last 3 Months Insurance [employer] Care Teams Grief Counselor Relationship Specialty Start Date End Date Mikey Olivera MD [address] [place] [address] PCP - General INTERNAL MEDICINE 08/06/21
--- OUTSIDE RECORDS SUMMARY | 2025-01-24 11:25 | XMS_ITS | Clinical Summary ---
Author Organization [facility] [address] Address [address] [place] [address] Care Team Providers Care Weatherization Field Technician Name Role Phone Mikey Olivera MD Primary Care Provide r Nuris Thompson MD Unavailable [phone] Ramos Fong MD Unavailable [phone] Allergies Active Allergy Reactions Criticality Noted Date [...] (08/16/2021): Added automatically from request for surgery [id number] Status post placement of implantable loop record er 10/22/2019 Overview (10/22/2019): Reality DigitalroniSwivel-Biomonitor III-Imp Loop Recorder. Dx; PAF, Presynope, Bradycardia. DOI 10/22/2019-[facility]. Reality Digitalronik remote home monitoring. 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 10/29/2015 [...] 03/26/2012 04/12/20 19 Overview (08/26/2016): BENIGN HYPERTENSION Surgical History Surgery Date Site/Laterality Comments TONSILLECTOMY Tonsillectomy COLONOSCOPY ABLATION OF AFIB FLUTTER x3 INSERT / REPLACE / REMOVE PACEMAKER Biotronik CARDIAC CATHETERIZATION SHOULDER SURGERY Right ANKLE SURGERY Right CHOLECYSTECTOMY Medical History Medical History Date Comments PAF (paroxysmal atrial fibrillation) S/P ablation Aortic stenosis Atrial flutter (HCC) S/P ablatio n Macular degeneration PONV (postoperative nausea and vomiting) Legally blind Hypertension Hyperlipidemia Fatigue Aortic stenosis, severe Dizziness Syncope H/O atrial flutter GERD (gastroesophageal reflux disease) H/O: GI bleed 09/2023 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 Gender Identity Not on file Sexual Orientation Not on file Obstetrics History Last Filed Vital Signs Vital Sign Reading Time Taken Comments Blood Pressure 162/73 04/03/2024 7:48 AM LEASE ADMINISTRATION ANALYST Pulse 61 04/03/2024 7:48 AM LEASE ADMINISTRATION ANALYST Temperature 36.7 C (98 F) 04/03/2024 7:48 AM LEASE ADMINISTRATION ANALYST Respiratory Rate 18 04/03/2024 7:48 AM LEASE ADMINISTRATION ANALYST Oxygen Saturation 100% 04/03/2024 7:48 AM LEASE ADMINISTRATION ANALYST Inhaled Oxygen Concentration - - Weight 70.2 kg (154 lb 12.8 oz) 04/02/2024 6:00 AM LEASE ADMINISTRATION ANALYST Height 177.8 cm (5' 10) 04/01/2024 6:57 AM LEASE ADMINISTRATION ANALYST Body Mass Index 22.21 04/01/2024 6:57 AM LEASE ADMINISTRATION ANALYST Plan of Treatment Health Maintenance Due Date Last Done Comments Depression Screening 1942 DTaP/Tdap/Td Vaccine (1 - Tdap) 1953 Hepatitis B Screening 1960 Zoster Vaccine (1 of 2) 1992 Well Visit 65+ 09/26/2007 Covid-19 Vaccine (4 - 2024-2 6 season) 2025 04/05/2021, 07/14/2020, 06/16/2020 Influenza Vaccine (#1) 2025 , 02/04/2020, 03/27/2019, Additional history exists Fall Risk Assessment 04/03/2025 04/03/2024 Pneumococcal vaccine 65+ Completed 05/03/2017, 04/21 Medical Devices Implanted Type Area Park Manager Device Identifier Shelf Expiration Date Model / Serial / Lot Biotronik Ra Lead [id number] Implanted:Sedrick Hand MD (Quantity not on file) Lead Heart Biotronik [id number] / [id number] / Biotronik Rv Lead [id number] Implanted:Sedrick Hand MD (Quantity not on file) Lead Heart Biotronik [id number] / [id number] / Biotronik Pm Edora 8 Dr-T-05/24/2022 Implanted:05/24 by Sedrick Pan MD (Quantity not on file) Pacemaker Chest Wall Biotronik [id number] / [id number] / Loop Recorder Left: Chest Wall Depuy Orthopaedics Inc Delta Xtend Shoulder +9mm Spacer Humeral Sterile [id number] - [id number] Implanted:Qty: 1 on 09/07/2021 by Marcus Hernández MD at [facility] Right: Shoulder Depuy Orthopaed[employer] Inc [id number] 08/19/2025 [id number] / / [id number] Depuy [employer]opaed[employer] Inc Delta Xtend 4.5mm 36mm Lock Shoulder Glenoid Screw Bone Metaglene [id number] - [id number] Implanted:Qty: 1 on 09/07/2021 by Marcus Hernández MD at [facility] Right: Shoulder Depuy Orthopaedics Inc [id number] 05/21/2026 [id number] / / [id number] Depuy Synthes Sales Inc [id number] Metaglene 10mm Long Peg Fixation - [id number] Implanted:Qty: 1 on 09/07/2021 by Marcus Hernández MD at [facility] Right: Shoulder Depuy Synthe[employer] Inc [id number] 03/21/2026 [id number] / / [id number] Depuy Orthopaed[employer] Inc Delta Xtend 4.5mm 30mm Lock Shoulder Glenoid Screw Bone Metaglene [id number] - [id number] Implanted:Qty: 1 on 09/07/2021 by Marcus Hernández MD at [facility] Right: Shoulder Depuy Orthopaed[employer] Inc [id number] 05/21/2025 [id number] / / [id number] Depuy Orthopaed[employer] Inc [id number] Component Glenoid Delta Xtend +6mm Od42mm - [id number] Implanted:Qty: 1 on 09/07/2021 by Marcus Hernández MD at [facility] Right: Shoulder Depuy Orthopaed[employer] Inc [id number] 07/20/2023 [id number] / / [id number] Depuy Orthopaed[employer] Delta Xtend 4.5mm 42mm Lock Shoulder Glenoid Screw Bone Metaglene [id number] - [id number] Implanted:Qty: 1 on 09/07/2021 by Marcus Hernández MD at [facility] Right: Shoulder Depuy Orthopaedics Inc [id number] 05/21/2026 [id number] / / [id number] Depuy Orthopaedics Inc Global Unite 14mm 129mm Modular Shoulder Standard Stem Humeral [id number] - [id number] Implanted:Qty: 1 on 09/07/2021 by Marcus Hernández MD at [facility] Right: Shoulder Depuy Orthopaedics Inc [id number] 06/21/2031 [id number] / / [id number] Depuy Orthopaedics Inc [id number] Implant Shldr Xtend Modecc 145epi Por Sz1 Rt - [id number] Implanted:Qty: 1 on 09/07/2021 by Marcus Hernández MD at [facility] Right: Shoulder Depuy Orthopaedics Inc [id number] 06/21/2030 [id number] / / [id number] Depuy Orthopaed[employer] Inc Delta Xtend 42mm Shoulder +3mm Standard Cup Humeral Polyethylene Latex Free [id number] - [id number] Implanted:Qty: 1 on 09/07/2021 by Marcus Hernández MD at [facility] Right: Shoulder Depuy Orthopaedics Inc [id number] 03/21/2026 [id number] / / [id number] Rin[employer] V[employer] System Closure Repair Femoral Artery Suture Mediated Perclose Prostyle 94986-94 - [id number] Implanted:Qty: 1 on 04/01/2024 by Nuris Thompson MD at [facility] [employer] 12/19/2025 [id number] / / [id number] Rincon V[employer] System Closure Repair Femoral Artery Suture Mediated Perclose Prostyle 58312-49 - [id number] Implanted:Qty: 1 on 04/01/2024 by Nuris Thompson MD at [facility] [employer] 12/19/2025 [id number] / / [id number] Tovar Lifesciences Daly 3 Commander Tovar 26mm Transcatheter Ultra Low Profile [id number] - [id number] - [id number] Implanted:Qty: 1 on 04/01/2024 by Nuris Thompson MD at [facility] [employer]ov[employer]iences 10/25/2026 [id number] / [id number] / [employer] Angio-Seal Vip 6fr Closere Device [id number] - [id number] Implanted:Qty: 1 on 04/01/20[id number] / / Insurance MEDICARE [facility] MEDICARE [facility] AET MEDICARE MEDICARE [facility] AETNA MEDICARE Advance Directives For more information, please contact: [phone] * Full Code (Latest Code Status on File) Date Activated Date Inactivated Comments 09/07/2021 4:41 PM 09/08/2021 3:23 PM Care Teams Weatherization Field Technician Relationship Specialty Start Date End Date Mikey Olivera MD [address] [place] [address] PCP - General 08/19/16 Nuris Thompson MD [address] [place] [address] Consulting Physician Cardiovascular Disease 04/02/24 [place] [address] [facility] [address] [place] [address] Consulting Physician Urology 04/03/24
== END 2025-01-24 10:56 | disposition home or self-care (01) ==
PROVIDERS: PCP Emergency Medicine; Visit Provider Emergency Medicine
DX: M25.561 Pain in right knee (principal)
CPT/HCPCS: 73562

== ENCOUNTER 2025-02-11 15:18 | Emergency (ER) | payer MEDICARE, SELFPAY ==
--- NOTE | ~2025-02-11 | CT_ITS ---
EXAMINATION: CT abd pelvis lumbar w con DATE: 02/11/2025 17:18 INDICATION: Flank and groin pain TECHNIQUE: Computed tomography (CT) of the abdomen, pelvis and lumbar spine was performed with intravenous contrast. The dose-length product was 437.76 mGy-cm. COMPARISON: CT dated 11/16/2023 FINDINGS: Lung bases unremarkable. Heart size normal. No significant pleural or pericardial effusion. There is a small cyst of the left hepatic lobe. Status post cholecystectomy. The spleen, pancreas, adrenal glands and right kidney are unremarkable. There are left renal cysts. There is mild ectasia of the abdominal aorta without aneurysm. No lymphadenopathy. Fat-containing left inguinal hernia. There is subtle intrusion of nonobstructed small bowel into the hernia. There is bladder wall thickening. Prostate gland is enlarged causing prominent bladder base impression. Nonobstructive bowel gas pattern. There is grade 1 spondylolisthesis at L5-S1 secondary to spondylolysis. There is disc narrowing at L1-2 and L5-S1. No acute fracture, subluxation or dislocation. There is mild levocurvature of the lumbar spine. There is atherosclerosis of the aorta. IMPRESSION: 1. No acute abnormality of the abdomen, pelvis or lumbar spine. 2: Moderate lumbar spondylosis grade 1 spondylolisthesis at L5-S1 secondary to spondylolysis. 3: Diffuse bladder wall thickening which may be due to outlet obstruction from enlarged prostate gland or cystitis. Clinically correlate. Reviewed, dictated and finalized at location O.
[2025-02-11 15:19] VITALS: BP 134/64; PULSE 77; RESP 16; TEMP 36.9; O2SAT 99
--- OUTSIDE RECORDS SUMMARY | 2025-02-11 15:21 | XMS_ITS | Encounter Summary ---
Author Organization [facility] Address [address] [place] [address] Care Team Providers Care Browning Processor Name Role Phone Mikey Olivera MD Primary Care Provide r Nuris Thompson MD Unavailable [phone] Ramos Fong MD Unavailable [phone] Encounter Details Date Type Department Care Team (Late st Contact Info) Description 05/19/2022 Orders Only [facility] Health Information Management [address] [place] [address] Scanning, Provider Social History Tobacco Use Types Packs/Day Years Used Date Smoking Tobacco: Former Cigarettes Q uit: 08/04/1995 Smokeless Tobacco: Never Alcohol Use Standard Drinks/Week Comments No 0 (1 standard drink = 0.6 oz pur e alcohol) AUDIT-C Answer Date Recorded Q1: How often do you have a drink containing alc ohol? 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 Gender Identity Not on file Sexual Orientation Not on file documented as of this encounter Plan of Treatment Not on file documented as of this encounter Procedures Procedure Name Priority Date/Time Associated Diagnosis Comments SCAN - LABS 05/19/2022 documented in this encounter Results * SCAN - LABS (05/19/2022) us Provider Scanning Final Result documented in this encounter Visit Diagnoses Not on filedocumented in this encounter Care Teams Browning Processor Relationship Specialty Start Date End Date Mikey Olivera MD [address] [place] [address] PCP - General 08/19/16 Nuris Thompson MD [address] [place] [address] Consulting Physician Cardiovascular Disease 04/02/24 [place] [address] [address] [address] Consulting Physician Urology 04/03/24 documented as of this encounter
--- OUTSIDE RECORDS SUMMARY | 2025-02-11 15:21 | XMS_ITS | Encounter Summary ---
Author Organization 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 Gender Identity Not on file Sexual Orientation Not on file documented as of this encounter Plan of Treatment Not on file documented as of this encounter Procedures Procedure Name Priority Date/Time Associated Diagnosis Comments SCAN - LABS 09/02/2022 documented in this encounter Results * SCAN - LABS (09/02/2022) us Provider Scanning Final Result documented in this encounter Visit Diagnoses Not on filedocumented in this encounter Care Teams Multimedia Production Assistant Relationship Specialty Start Date End Date Mikey Olivera MD [address] [place] [address] PCP - General 08/19/16 Nuris Thompson MD [address] [place] [address] Consulting Physician Cardiovascular Disease 04/02/24 [place] [address] [address] [address] Consulting Physician Urology 04/03/24 documented as of this encounter
--- OUTSIDE RECORDS SUMMARY | 2025-02-11 15:21 | XMS_ITS | Clinical Summary ---
Author Organization [facility] Address [address] [place] [address] Care Team Providers Care Laborer Concrete Plant Name Role Phone Mikey Olivera MD Primary Care Provider [phone] Source Comments [facility],non-owned Affiliates and Associated Physician Practices is amultiple site organization consisting of ambulatory clinics and hospital sitesin [place], [place], [place] and [place]. This disclosure is being madepursuant to the Care Everywhere program and may not contain all information available regarding this patient. Last updated 18.[facility] Allergies No known active allergies Medications * [...] yrs (1 - 1-dose 75+ series) 2017 DEPRESSION SCREENING 05/22/2024 COVID-19 VACCINE (1 - 2023-2 5 season) 2025 INFLUENZA VACCINE (#1) 2025 HEPATITIS B VACCINE Aged Out No [...] this topic Medical Devices Implanted Type Area Electrical Solderer Device Identifier Shelf Expiration Date Model / Serial / Lot Wedge Aug [id number] Biosync Puja Rodriguez Implanted:Qty: 1 on 12/31/2021 by Angus Millan DPM at [facility] Right: Foot [employer]rex Inc 08/24/2023 [id number] Wedge Dec 20mmx6.5mm Biosync Puja Cttn Implanted:Qty: 1 on 12/31/2021 by Angus Millan DPM at [facility] Right: Foot [employer] Inc 07/20/2023 [id number] Insurance MEDICARE [facility] * Guarantor: TRISTAN CRAVEN Account Type Relation to Patient Date of Phone Billing Address Personal/Family [address] [place] [address] MEDICARE ANTHEM * Guarantor: TRISTAN CRAVEN Account Type Relation to Patient Date of Phone Billing Address Personal/Family [address] [place] [address] MEDICARE ANTHEM * Guarantor: TRISTAN CRAVEN Account Type Relation to Patient Date of Phone Billing Address Personal/Family [address] [place] [address] MEDICARE Member Subscriber Plan / Payer (Ef fective for All Dates) Name:Bruce Tristan Member ID:[id number] Relation to Subscriber:Self Name:Tristan Craven Subscriber ID:[id number] Payer ID:Not on file Group ID:Not on file Type:Medicare Address: [place] [id number] ANTHEM Care Teams Laborer Concrete Plant Relationship Specialty Start Date End Date Mikey Olivera MD [address] [id number] PCP - General Internal Medicine 12/31/21
--- OUTSIDE RECORDS SUMMARY | 2025-02-11 15:21 | XMS_ITS | Encounter Summary ---
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 Gender Identity Not on file Sexual Orientation Not on file documented as of this encounter Plan of Treatment Not on file documented as of this encounter Procedures Procedure Name Priority Date/Time Associated Diagnosis Comments SCAN - RADIOLOGY/IMAGING 03/16/2022 9:28 PM CDT documented in this encounter Results * SCAN - RADIOLOGY/IMAGING (03/16/2022 9:28 PM CDT) Anatomical Region Laterality Modality Other us Provider Scanning Final Result documented in this encounter Visit Diagnoses Not on filedocumented in this encounter Care Teams Enthone Solder Stripper Relationship Specialty Start Date End Date Mikey Olivera MD [address] [place] [address] PCP - General 08/19/16 Nuris Thompson MD [address] [place] [address] Consulting Physician Cardiovascular Disease 04/02/24 [place] [address] [address] Consulting Physician Urology 04/03/24 documented as of this encounter
--- OUTSIDE RECORDS SUMMARY | 2025-02-11 15:21 | XMS_ITS | Encounter Summary ---
Author Organization [facility] Healthcare Address [address] [place] [address] Care Team Providers Care Professional Fighter Name Role Phone Mikey Olivera MD Primary Care Provide r Nuris Thompson MD Unavailable [phone] Ramos Fong MD Unavailable [phone] Encounter Details Date Type Department Care Team (Late st Contact Info) Description 03/01/[address] 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 Gender Identity Not on file Sexual Orientation Not on file documented as of this encounter Plan of Treatment Not on file documented as of this encounter Procedures Procedure Name Priority Date/Time Associated Diagnosis Comments SCAN - LABS 03/01/2023 documented in this encounter Results * SCAN - LABS (03/01/2023) us Provider Scanning Final Result documented in this encounter Visit Diagnoses Not on filedocumented in this encounter Care Teams Professional Fighter Relationship Specialty Start Date End Date Mikey Olivera MD [address] [place] [address] PCP - General 08/19/16 Nuris Thompson MD [address] [place] [address] Consulting Physician Cardiovascular Disease 04/02/24 [place] [address] [address] [address] Consulting Physician Urology 04/03/24 documented as of this encounter
--- OUTSIDE RECORDS SUMMARY | 2025-02-11 15:21 | XMS_ITS | Clinical Summary ---
Author Organization [facility] [address] Address [address] [place] [address] Care Team Providers Care Barrel Roller Name Role Phone Mikey Olivera MD Primary Care Provide r Nuris Thompson MD Unavailable [phone] Ramos Fong MD Unavailable [phone] Allergies Active Allergy Reactions Criticality Noted Date [...] (08/16/2021): Added automatically from request for surgery [id number] Status post placement of implantable loop record er 10/22/2019 Overview (10/22/2019): [employer] III-Imp Loop Recorder. Dx; PAF, Presynope, Bradycardia. DOI 10/22/2019-[facility]. [employer] remote home monitoring. 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 10/29/2015 [...] (gastroesophageal reflux disease) H/O: GI bleed 09/2023 [facility] History of transfusion Cataract Delirium 04/03/2024 Family History Medical History Relation Name Comments Other Brother 2 Heart transplan t after NC; Other Father complications a fter stroke; Cause [...] on file Legal Sex Male 8:20 AM TAX INVESTIGATOR Gender Identity Not on file Sexual Orientation Not on file Obstetrics History Last Filed Vital Signs Vital Sign Reading Time Taken Comments Blood Pressure 162/73 04/03/2024 7:48 AM TAX INVESTIGATOR Pulse 61 04/03/2024 7:48 AM TAX INVESTIGATOR Temperature 36.7 C (98 F) 04/03/2024 7:48 AM TAX INVESTIGATOR Respiratory Rate 18 04/03/2024 7:48 AM TAX INVESTIGATOR Oxygen Saturation 100% 04/03/2024 7:48 AM TAX INVESTIGATOR Inhaled Oxygen Concentration - - Weight 70.2 kg (154 lb 12.8 oz) 04/02/2024 6:00 AM TAX INVESTIGATOR Height 177.8 cm (5' 10) 04/01/2024 6:57 AM TAX INVESTIGATOR Body Mass Index 22.21 04/01/2024 6:57 AM TAX INVESTIGATOR Plan of Treatment Health Maintenance Due Date [...] 05/03/2017, 04/21 Medical Devices Implanted Type Area Straw Boss Device Identifier Shelf Expiration Date Model / Serial / Lot Biotronik Ra Lead [id number] Implanted:Sedrick Hand MD (Quantity not on file) Lead Heart Biotronik [id number] / [id number] / Biotronik Rv Lead [id number] Implanted:Sedrick Hand MD (Quantity not on file) Lead Heart Biotronik [id number] / [id number] / Biotronik Pm Edora 8 Dr-T-05/24/2022 Implanted:05/24 by Sedrick Pan MD (Quantity not on file) Pacemaker Chest Wall Biotronik [id number] / [id number] / Loop Recorder Left: Chest Wall [employer] Delta Xtend Shoulder +9mm Spacer Humeral Sterile [id number] - [id number] Implanted:Qty: 1 on 09/07/2021 by Marcus Hernández MD at [facility] Right: Shoulder [employer] [id number] 08/19/2025 [id number] / / [id number] [employer] Delta Xtend 4.5mm 36mm Lock Shoulder Glenoid Screw Bone Metaglene [id number] - [id number] Implanted:Qty: 1 on 09/07/2021 by Marcus Hernández MD at [facility] Right: Shoulder [employer] [id number] 05/21/2026 [id number] / / [id number] [employer] [id number] Metaglene 10mm Long Peg Fixation - [id number] Implanted:Qty: 1 on 09/07/2021 by Marcus Hernández MD at [facility] Right: Shoulder [employer] [id number] 03/21/2026 [id number] / / [id number] [employer] Delta Xtend 4.5mm 30mm Lock Shoulder Glenoid Screw Bone Metaglene [id number] - [id number] Implanted:Qty: 1 on 09/07/2021 by Marcus Hernández MD at [facility] Right: Shoulder [employer] [id number] 05/21/2025 [id number] / / [id number] [employer] [id number] Component Glenoid Delta Xtend +6mm Od42mm - [id number] Implanted:Qty: 1 on 09/07/2021 by Marcus Hernández MD at [facility] Right: Shoulder [employer] [id number] 07/20/2023 [id number] / / [id number] [employer] Delta Xtend 4.5mm 42mm Lock Shoulder Glenoid Screw Bone Metaglene [id number] - [id number] Implanted:Qty: 1 on 09/07/2021 by Marcus Hernández MD at [facility] Right: Shoulder [employer] [id number] 05/21/2026 [id number] / / [id number] Dep[employer] Global Unite 14mm 129mm Modular Shoulder Standard Stem Humeral [id number] - [id number] Implanted:Qty: 1 on 09/07/2021 by Marcus Hernández MD at [facility] Right: Shoulder [employer] [id number] 06/21/2031 [id number] / / [id number] [employer] [id number] Implant Shldr Xtend Modecc 145epi Por Sz1 Rt - [id number] Implanted:Qty: 1 on 09/07/2021 by Marcus Hernández MD at [facility] Right: Shoulder [employer] [id number] 06/21/2030 [id number] / / [id number] [employer] Delta Xtend 42mm Shoulder +3mm Standard Cup Humeral Polyethylene Latex Free [id number] - [id number] Implanted:Qty: 1 on 09/07/2021 by Marcus Hernández MD at [facility] Right: Shoulder [employer] [id number] 03/21/2026 [id number] / / [id number] [employer] System Closure Repair Femoral Artery Suture Mediated Perclose Prostyle 10885-04 - [id number] Implanted:Qty: 1 on 04/01/2024 by Nuris Thompson MD at [facility] [employer] 12/19/2025 [id number] / / [id number] [employer] System Closure Repair Femoral Artery Suture Mediated Perclose Prostyle 57938-06 - [id number] Implanted:Qty: 1 on 04/01/2024 by Nuris Thompson MD at [facility] [employer] 12/19/2025 [id number] / / [id number] [employer] Daly 3 Commander Tovar 26mm Transcatheter Ultra Low Profile [id number] - [id number] - [id number] Implanted:Qty: 1 on 04/01/2024 by Nuris Thompson MD at [facility] [employer] 10/25/2026 [id number] / [id number] / Gojee Angio-Seal Vip 6fr Closere Device [id number] - [id number] Implanted:Qty: 1 on 04/01/20[id number] / / Insurance MEDICARE [facility] MEDICARE [facility] AET MEDICARE MEDICARE [facility] AETNA MEDICARE Advance Directives For more information, please contact: [phone] * Full Code (Latest Code Status on File) Date Activated Date Inactivated Comments 09/07/2021 4:41 PM 09/08/2021 3:23 PM Care Teams Barrel Roller Relationship Specialty Start Date End Date Mikey Olivera MD [address] [place] [address] PCP - General 08/19/16 Nuris Thompson MD [address] [place] [address] Consulting Physician Cardiovascular Disease 04/02/24 [place] [address] [facility] [address] [place] [address] Consulting Physician Urology 04/03/24
--- NOTE | 2025-02-11 15:34 | ED.GENADULT ---
HPI - General Adult General Chief complaint: Urogenital-Male <Krysten Villafuerte, BAG MACHINE TENDER - Last Filed: 02/12/25 19:42> Stated complaint: low back pain, groin pain <Krysten Villafuerte, BAG MACHINE TENDER - Last Filed: 02/12/25 19:42> Time Seen by Provider: 02/11/25 15:34 <Krysten Villa September, BAG MACHINE TENDER - Last Filed: 02/12/25 19:42> Focused HPI: Lis Barrera is an 84 y/o male who presents with having intermittent right flank / low back pain that has been off and for a couple weeks and now getting worse, when to urology yesterday they thought it was a stone but the imaging did not show it, he has continued pain and so he was told to come here. He states he does have some dysuria/ no fall or injury but states the pain is affecting is ability to walk. He is on Warfarin for Afib. GENERAL: Well-appearing, well-nourished, and in no acute distress. HEAD: Normocephalic, atraumatic. CHEST: Clear to auscultation. ?No respiratory distress. HEART: Regular rate and rhythm.? NEURO: ?Alert and oriented x3. Patient screened in triage and initial orders placed.? ?Additional care and disposition to be based upon?diagnostic testing and treatment. <Krysten Villafuerte, BAG MACHINE TENDER - Last Filed: 02/12/25 19:42> History of Present Illness HPI narrative: Agree with the HPI above <Phill Last MD - Last Filed: 02/12/25 06:46> Related Data Home medications: Home Medications ?Medication ?Instructions ?Recorded ?Confirmed ?Last Taken ?Type losartan 100 mg tablet 100 mg PO DAILY 06/10/19 10/30/24 10/18/19 History finasteride 5 mg tablet 5 mg PO DAILY 11/17/23 10/30/24 Unknown History warfarin 5 mg tablet 7.5 mg PO DAILY 11/17/23 10/30/24 Unknown History amlodipine 10 mg tablet 10 mg PO DAILY 01/21/25 Unknown History aspirin 81 mg tablet 81 mg PO DAILY 01/21/25 Unknown History ferrous sulfate 325 mg (65 mg 325 mg PO DAILY 01/21/25 Unknown History iron) tablet,delayed release hydrochlorothiazide 12.5 mg tablet 12.5 mg PO DAILY 01/21/25 Unknown History <Krysten Villa September, - Last Filed: 02/12/25 19:42> Allergies/adverse reactions: Allergies Allergy/AdvReac Type Severity Reaction Status Date / Time Anesthetics - Jeannie Type- Allergy Unknown Verified 01/21/25 15:23 Parabens prochlorperazine AdvReac Nausea and Verified 01/21/25 15:23 Vomiting <Krysten Villa September, - Last Filed: 02/12/25 19:42> Review of Systems Review of Systems: As reviewed above in HPI <Phill Last MD - Last Filed: 02/12/25 06:46> [facility] Past Medical History Medical History: Medical History Left knee pain RUQ pain Complete tear of right rotator cuff GI (gastrointestinal bleed) Upper GI bleed Acute calculous cholecystitis Encounter for surgical aftercare following surgery on the digestive system Abdominal aortic aneurysm Paroxysmal atrial fibrillation Vitamin D deficiency Systolic murmur Nonrheumatic aortic valve stenosis Nausea Male erectile dysfunction, unspecified Jock itch Hyperglycemia Essential (primary) hypertension Erectile dysfunction due to arterial insufficiency Dizziness Bilateral carotid bruits Arthritis of both hands Aortic calcification Acute right ankle pain Arthritis Gastroesophageal reflux disease Benign prostatic hyperplasia Paroxysmal atrial fibrillation Chronic anticoagulation Paroxysmal atrial flutter Hyperlipidemia Aortic stenosis Hypertension Cellulitis <Krysten Villa September, - Last Filed: 02/12/25 19:42> Surgical History Surgical History: Surgical History History of loop recorder History of permanent cardiac pacemaker placement History of cardiac radiofrequency ablation Atrial flutter ablation 2006. Atrial fibrillation ablation in May 2011. History of repair of right rotator cuff (11/30/09) <Krysten Villafuerte - Last Filed: 02/12/25 19:42> Family History Family History: Family History Father Family history of cardiovascular disease, Onset Age: 73 Cerebrovascular accident, Onset Age: 73 Mother Family history of malignant neoplasm, Onset Age: 62 <Krysten Villafuerte, BAG MACHINE TENDER - Last Filed: 02/12/25 19:42> Social History Social History: Social History Social History: Surrogate medical decision maker: Nyasia Barrera, spouse. Code status: Full code. Smoking packs per day: 1.5 Smoking cigarettes per day: 30.0 Years smoked: 30 Smoking pack-years: 45.00 Smoking status: Former smoker Alcohol intake: never Substance use: never Substance use type: does not use Do You Feel Safe in your Home?: Yes Lack of Transportation: No Lack of Food: Never True Current Housing: I Have Housing Concerned About Future Housing: No Difficulty Paying Gas/Electric Bills: No Difficulty Paying for Meds: No Currently Unemployed: No Education: Associate Degree Difficulty w/ Childcare or Family Care: No Additional living arrangements comments: Lives with spouse in [place]. 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 Spiritual care concerns: No <Krysten Villafuerte, BAG MACHINE TENDER - Last Filed: 02/12/25 19:42> Exam Narrative: GENERAL: [Well-appearing, well-nourished, and in no acute distress.] HEAD: [Normocephalic, atraumatic.] EYES: [PERRLA and EOMI.] ENT: Nares clear, no rhinorrhea or epistaxis. Mucous membranes moist. NECK: Supple. CHEST: Pacemaker in left-sided chest wall, no respiratory distress HEART: [Regular rate and rhythm]. No murmur heard. [Normal peripheral pulses.] ABDOMEN: [Soft, nondistended], minimally tender, [No rigidity or guarding] EXTREMITIES: Normal range of motion. [No edema.] SKIN: Warm, dry, no rash. NEURO: [No focal deficits]. Alert and oriented [x3.] PSYCH: [Normal mood and affect.] <Phill Last MD - Last Filed: 02/12/25 06:46> Course Vital Signs Vital signs: Vital Signs Temperature 36.9 C 02/11/25 15:19 Pulse Rate 77 02/11/25 15:19 Respiratory Rate 16 02/11/25 15:19 Blood Pressure 134/64 02/11/25 15:19 Pulse Oximetry 99 02/11/25 15:19 Oxygen Delivery Room Air 02/11/25 15:19 Temperature 36.9 C 02/11/25 15:19 Pulse Rate 75 02/11/25 23:28 Respiratory Rate 18 02/11/25 23:28 Blood Pressure 151/77 H 02/11/25 23:28 Pulse Oximetry 97 02/11/25 23:28 Oxygen Delivery Room Air 02/11/25 20:43 <Krysten Villafuerte APRN - Last Filed: 02/12/25 19:42> Vital Signs Temperature 36.9 C 02/11/25 15:19 Pulse Rate 77 02/11/25 15:19 Respiratory Rate 16 02/11/25 15:19 Blood Pressure 134/64 02/11/25 15:19 Pulse Oximetry 99 02/11/25 15:19 Oxygen Delivery Room Air 02/11/25 15:19 Temperature 36.9 C 02/11/25 15:19 Pulse Rate 75 02/11/25 23:28 Respiratory Rate 18 02/11/25 23:28 Blood Pressure 151/77 H 02/11/25 23:28 Pulse Oximetry 97 02/11/25 23:28 Oxygen Delivery Room Air 02/11/25 20:43 <Phill Last MD - Last Filed: 02/12/25 06:46> Medical Decision Making MDM Narrative Medical decision making narrative: Lis Barrera is an 84 y/o male who presents with having intermittent right flank / low back pain that has been off and for a couple weeks and now getting worse, when to urology yesterday they thought it was a stone but the imaging did not show it, he has continued pain and so he was told to come here. He states he does have some dysuria/ no fall or injury but states the pain is affecting is ability to walk. He is on Warfarin for Afib. Patient has reassuring vital signs here without any significant high blood pressure, tachycardia, fever or tachypnea. Physical examination is reassuring with no significant signs of peritonitis. Mildly tender abdomen but no signs of distension. No signs of respiratory distress. Symptoms consistent with potential kidney stone versus cystitis versus urinary tract infection versus pyelonephritis. CT scan of the abdomen pelvis was ordered, laboratory studies urinalysis ordered. He was given morphine for analgesia and re-evaluated. Workup is reassuring. Does have some hemoconcentrated CBC with elevated hemoglobin of of his baseline likely from dehydration. No signs of significant leukocytosis. Slightly low sodium and chloride likely dehydration, normal BUN and creatinine. Normal GFR. Normal glucose and LFTs. Provided 2 L of hydration here. CT scan of the abdomen pelvis and lumbar region with contrast shows no acute abnormalities in the pelvis abdomen or lumbar spine. Moderate lumbar spondylosis chronic. Diffuse bladder wall thickening likely from cystitis versus enlarged prostate gland. Patient does have a history of prostatic enlargement and likely contributing but given his dysuria and pelvic pain will treat him for cystitis. Given a dose of Rocephin in addition to his fluids. Urinalysis was shows evidence of urinary tract infection and some slight dehydration, patient will be discharged home with antibiotic regimen and referral back to Urology for outpatient follow-up visit. Patient and family expressed understanding these instructions and safe for discharge with return precautions. <Phill Last MD - Last Filed: 02/12/25 06:46> Medical Records Medical records reviewed: Yes I reviewed the external patient's medical records. <Phill Last MD - Last Filed: 02/12/25 06:46> Vital Signs Vital Signs: Vital Signs Temperature 36.9 C 02/11/25 15:19 Pulse Rate 77 02/11/25 15:19 Respiratory Rate 16 02/11/25 15:19 Blood Pressure 134/64 02/11/25 15:19 Pulse Oximetry 99 02/11/25 15:19 Oxygen Delivery Room Air 02/11/25 15:19 Temperature 36.9 C 02/11/25 15:19 Pulse Rate 75 02/11/25 23:28 Respiratory Rate 18 02/11/25 23:28 Blood Pressure 151/77 H 02/11/25 23:28 Pulse Oximetry 97 02/11/25 23:28 Oxygen Delivery Room Air 02/11/25 20:43 <Krysten Villafuerte APRN - Last Filed: 02/12/25 19:42> Vital Signs Temperature 36.9 C 02/11/25 15:19 Pulse Rate 77 02/11/25 15:19 Respiratory Rate 16 02/11/25 15:19 Blood Pressure 134/64 02/11/25 15:19 Pulse Oximetry 99 02/11/25 15:19 Oxygen Delivery Room Air 02/11/25 15:19 Temperature 36.9 C 02/11/25 15:19 Pulse Rate 75 02/11/25 23:28 Respiratory Rate 18 02/11/25 23:28 Blood Pressure 151/77 H 02/11/25 23:28 Pulse Oximetry 97 02/11/25 23:28 Oxygen Delivery Room Air 02/11/25 20:43 <Phill Last MD - Last Filed: 02/12/25 06:46> Lab Data Lab results reviewed: Yes I reviewed the patient's lab results. <Phill Last MD - Last Filed: 02/12/25 06:46> Result diagrams: 02/11/25 15:50 02/11/25 15:50 <Krysten Villafuerte APRN - Last Filed: 02/12/25 19:42> Labs: Lab Results 02/11/25 02/11/25 Range/Units 15:50 21:39 WBC 10.5 H (4.5-10.0) K/mm3 RBC 4.24 L (4.6-6.20) M/mm3 Hgb 12.8 L D (14.0-18.0) g/dL Hct 40.0 L (42.0-52.0) % MCV 94.3 (80-100) fl MCH 30.2 (26-34) pg MCHC 32.0 (32-36) g/dl RDW 13.2 (11.5-14.5) % Plt Count 385 H (150-375) k/mm3 MPV 8.9 (7.4-10.4) fl Immature Gran % (Auto) 0.6 H (0-0.5) % Neut % (Auto) 66.1 (45.5-73.1) % Lymph % (Auto) 18.7 (18.3-44.2) % [place] % (Auto) 11.6 H (2.6-8.5) % Eos % (Auto) 2.5 (0-4.4) % Baso % (Auto) 0.5 (0.2-1.2) % Lymph # (Auto) 1.97 (0.9-3.2) K/mm3 [place] # (Auto) 1.2 H (0.1-0.6) K/mm3 Eos # (Auto) 0.3 (0-0.3) K/mm3 Baso # (Auto) 0.1 (0.0-0.1) K/mm3 Abs Immat Gran (auto) 0.06 H (0.00-0.031) K/mm3 Absolute Neuts (auto) 7.0 H (1.3-6.7) K/mm3 Absolute Nucleated RBC 0.000 (0.0-0.012) K/mm3 Nucleated RBC % 0.0 (0.0-0.2) % Sodium 129 L (137-145) mmol/L Potassium 4.0 (3.4-5.0) mmol/L Chloride 96 L (98-107) mmol/L Carbon Dioxide 25 (22-30) mmol/L Anion Gap 8 (4-12) mmol/L BUN 20 (9-20) mg/dL Creatinine 0.99 (0.7-1.3) mg/dL Estim Creat Clear Calc 47 ml/min Estimated GFR > 60 (59 - ) Glucose 103 (65-110) mg/dL Calcium 9.1 (8.4-10.2) mg/dL Total Bilirubin 0.9 (0.2-1.3) mg/dL AST 39 (17-59) U/L ALT 24 (6-50) U/L Alkaline Phosphatase 112 (38-126) U/L Total Protein 8.5 H (6.3-8.2) g/dL Albumin 4.2 (3.5-5.1) g/dL Urine Color Yellow (Yellow) Urine Appearance Turbid H (Clear) Urine pH 6.5 (5.0-9.0) Ur Specific [place] > 1.045 H (1.001-1.035) Urine Protein 1+ H (Negative) mg/dL Urine Glucose (UA) Negative (Negative) mg/dL Urine Ketones Negative (Negative) mg/dL Ur Blood (Man) 2+ H (Negative) Urine Nitrate Negative (Negative) Urine Bilirubin Negative (Negative) Urine Urobilinogen 1.0 (<2.0) mg/dL Leukocyte Esterase Rfl 3+ H (Negative) RUSSELL/UL Urine RBC 6-10 H (0-2) /hpf Urine WBC >100 H (0-3) /hpf Ur Squamous Epith Cells None seen (Few) /hpf Urine Bacteria 4+ H /hpf Urine Casts 0-2 <Krysten Villafuerte, BAG MACHINE TENDER - Last Filed: 02/12/25 19:42> Lab Results 02/11/25 02/11/25 Range/Units 15:50 21:39 WBC 10.5 H (4.5-10.0) K/mm3 RBC 4.24 L (4.6-6.20) M/mm3 Hgb 12.8 L D (14.0-18.0) g/dL Hct 40.0 L (42.0-52.0) % MCV 94.3 (80-100) fl MCH 30.2 (26-34) pg MCHC 32.0 (32-36) g/dl RDW 13.2 (11.5-14.5) % Plt Count 385 H (150-375) k/mm3 MPV 8.9 (7.4-10.4) fl Immature Gran % (Auto) 0.6 H (0-0.5) % Neut % (Auto) 66.1 (45.5-73.1) % Lymph % (Auto) 18.7 (18.3-44.2) % [place] % (Auto) 11.6 H (2.6-8.5) % Eos % (Auto) 2.5 (0-4.4) % Baso % (Auto) 0.5 (0.2-1.2) % Lymph # (Auto) 1.97 (0.9-3.2) K/mm3 [place] # (Auto) 1.2 H (0.1-0.6) K/mm3 Eos # (Auto) 0.3 (0-0.3) K/mm3 Baso # (Auto) 0.1 (0.0-0.1) K/mm3 Abs Immat Gran (auto) 0.06 H (0.00-0.031) K/mm3 Absolute Neuts (auto) 7.0 H (1.3-6.7) K/mm3 Absolute Nucleated RBC 0.000 (0.0-0.012) K/mm3 Nucleated RBC % 0.0 (0.0-0.2) % Sodium 129 L (137-145) mmol/L Potassium 4.0 (3.4-5.0) mmol/L Chloride 96 L (98-107) mmol/L Carbon Dioxide 25 (22-30) mmol/L Anion Gap 8 (4-12) mmol/L BUN 20 (9-20) mg/dL Creatinine 0.99 (0.7-1.3) mg/dL Estim Creat Clear Calc 47 ml/min Estimated GFR > 60 (59 - ) Glucose 103 (65-110) mg/dL Calcium 9.1 (8.4-10.2) mg/dL Total Bilirubin 0.9 (0.2-1.3) mg/dL AST 39 (17-59) U/L ALT 24 (6-50) U/L Alkaline Phosphatase 112 (38-126) U/L Total Protein 8.5 H (6.3-8.2) g/dL Albumin 4.2 (3.5-5.1) g/dL Urine Color Yellow (Yellow) Urine Appearance Turbid H (Clear) Urine pH 6.5 (5.0-9.0) Ur Specific [place] > 1.045 H (1.001-1.035) Urine Protein 1+ H (Negative) mg/dL Urine Glucose (UA) Negative (Negative) mg/dL Urine Ketones Negative (Negative) mg/dL Ur Blood (Man) 2+ H (Negative) Urine Nitrate Negative (Negative) Urine Bilirubin Negative (Negative) Urine Urobilinogen 1.0 (<2.0) mg/dL Leukocyte Esterase Rfl 3+ H (Negative) RUSSELL/UL Urine RBC 6-10 H (0-2) /hpf Urine WBC >100 H (0-3) /hpf Ur Squamous Epith Cells None seen (Few) /hpf Urine Bacteria 4+ H /hpf Urine Casts 0-2 <Phill Last MD - Last Filed: 02/12/25 06:46> Imaging Data Attestation: I personally reviewed and interpreted this imaging study as follows: <Phill Last MD - Last Filed: 02/12/25 06:46> My impression: Impressions Miscellaneous CT Procedure 02/11/25 17:22 IMPRESSION: 1. No acute abnormality of the abdomen, pelvis or lumbar spine. 2: Moderate lumbar spondylosis grade 1 spondylolisthesis at L5-S1 secondary to spondylolysis. 3: Diffuse bladder wall thickening which may be due to outlet obstruction from enlarged prostate gland or cystitis. Clinically correlate. <Phill Last MD - Last Filed: 02/12/25 06:46> Discharge Plan Discharge Clinical Impression: Acute cystitis, Urinary tract infection, Enlarged prostate <Krysten Villafuerte BAG MACHINE TENDER - Last Filed: 02/12/25 19:42> Patient Disposition: Home <Krysten Villafuerte BAG MACHINE TENDER - Last Filed: 02/12/25 19:42> Condition: Stable <Krysten Villa September BAG MACHINE TENDER - Last Filed: 02/12/25 19:42> Instructions: Antibiotic Form, Urinary Tract Infection in Men (ED) <Krysten Villa September, BAG MACHINE TENDER - Last Filed: 02/12/25 19:42> Additional Instructions: You have an upper urinary tract infection called acute cystitis. Take the prescribed antibiotics and he can also take Tylenol and ibuprofen every [id number] hours for pain control. Follow-up with your urologist on outpatient basis. Return with any worsening symptoms, new or emergent concerns at any time. <Krysten Villafuerte, BAG MACHINE TENDER - Last Filed: 02/12/25 19:42> Patient Language: Uzbek <Krysten Villa September, - Last Filed: 02/12/25 19:42> Prescriptions: New cefuroxime axetil 500 mg tablet 500 mg PO Q12H 10 Days Qty: 20 0RF No Action losartan 100 mg tablet 100 mg PO DAILY amlodipine 10 mg tablet 10 mg PO DAILY aspirin 81 mg tablet 81 mg PO DAILY ferrous sulfate 325 mg (65 mg iron) tablet,delayed release (DR/EC) 325 mg PO DAILY hydrochlorothiazide 12.5 mg tablet 12.5 mg PO DAILY tramadol 50 mg tablet 50 mg PO Q6H PRN (Reason: pain) Qty: 30 1RF sildenafil [Viagra] 25 mg tablet 25 mg PO DAILY PRN (Reason: sexual activity) Qty: 20 0RF Rx Instructions: administer 30 minutes to 4 hours before activity finasteride 5 mg tablet 5 mg PO DAILY warfarin 5 mg tablet 7.5 mg PO DAILY cholecalciferol (vitamin D3) 50 mcg (2,000 unit) capsule 100 mcg PO DAILY Qty: 180 2RF tamsulosin 0.4 mg capsule See Rx Instructions .ROUTE .COMPLEX Qty: 90 2RF Dose Instruction: TAKE 1 CAPSULE BY MOUTH ONCE DAILY Rx Instructions: TAKE 1 CAPSULE BY MOUTH ONCE DAILY pravastatin 40 mg tablet See Rx Instructions .ROUTE .COMPLEX Qty: 90 2RF Dose Instruction: TAKE 1 TABLET BY MOUTH EVERY DAY Rx Instructions: TAKE 1 TABLET BY MOUTH EVERY DAY omeprazole 20 mg capsule,delayed release(DR/EC) See Rx Instructions .ROUTE .COMPLEX Qty: 90 2RF Dose Instruction: TAKE 1 CAPSULE BY MOUTH EVERY DAY Rx Instructions: TAKE 1 CAPSULE BY MOUTH EVERY DAY <Krysten Villafuerte APRN - Last Filed: 02/12/25 19:42> Follow-up/Referrals: Mikey Olivera MD [Primary Care Provider, Internal Medicine] <Krysten Villafuerte APRN - Last Filed: 02/12/25 19:42> Time of Disposition: 22:38 <Krysten Villafuerte APRN - Last Filed: 02/12/25 19:42> 22:38 <Phill Last MD - Last Filed: 02/12/25 06:46>
[2025-02-11 16:08] LABS: Hematocrit 40.0 % (42.0-52.0); Hemoglobin 12.8 g/dL (14.0-18.0); Immature Granulocyte Percent A 0.6 % (0-0.5); Lymphocytes Absolute Auto 1.97 K/mm3 (0.9-3.2); Mean Corpuscular HGB Conc 32.0 g/dl (32-36); Mean Corpuscular Hemoglobin 30.2 pg (26-34); Mean Corpuscular Volume 94.3 fl (80-100); Nucleated Red Blood Cells Absolute Auto 0.000 K/mm3 (0.0-0.012); Nucleated Red Blood Cells Perc 0.0 % (0.0-0.2); Platelet Count Result 385 k/mm3 (150-375); Red Blood Count 4.24 M/mm3 (4.6-6.20); White Blood Count 10.5 K/mm3 (4.5-10.0)
[2025-02-11 16:25] LABS: Alanine Aminotransferase 24 U/L (6-50); Albumin Level 4.2 g/dL (3.5-5.1); Alkaline Phosphatase 112 U/L (38-126); Anion Gap 8 mmol/L (4-12); Aspartate Amino Transferase 39 U/L (17-59); Bilirubin,Total 0.9 mg/dL (0.2-1.3); Blood Urea Nitrogen 20 mg/dL (9-20); Calcium 9.1 mg/dL (8.4-10.2); Carbon Dioxide 25 mmol/L (22-30); Chloride 96 mmol/L (98-107); Estimated CRCL calculation 47 ml/min; Estimated Glomerular Filt Rate > 60; Glucose 103 mg/dL (65-110); Potassium 4.0 mmol/L (3.4-5.0); Sodium 129 mmol/L (137-145); Total Protein 8.5 g/dL (6.3-8.2)
[2025-02-11] MEDS: SODIUM CHLORIDE 0.9% IV 1,000 ML 999 ML IV CONT ×2 (20:42)
[2025-02-11 20:43] VITALS: BP 159/67; PULSE 69; RESP 18; O2SAT 98
--- OUTSIDE RECORDS SUMMARY | 2025-02-11 21:10 | XMS_ITS | Clinical Summary ---
Author Organization [facility] [address] Address [address] [place] [address] Care Team Providers Care Electronics Worker Name Role Phone Mikey Olivera MD Primary Care Provide r Nuris Thompson MD Unavailable [phone] Ramos Fong MD Unavailable [phone] Allergies Active Allergy Reactions Criticality Noted Date [...] (08/16/2021): Added automatically from request for surgery [id number] Status post placement of implantable loop record er 10/22/2019 Overview (10/22/2019): Private OutletroniAs It Is-Biomonitor III-Imp Loop Recorder. Dx; PAF, Presynope, Bradycardia. DOI 10/22/2019-[facility]. Private Outletronik remote home monitoring. 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 10/29/2015 [...] (gastroesophageal reflux disease) H/O: GI bleed 09/2023 [facility] History of transfusion Cataract Delirium 04/03/2024 Family History Medical History Relation Name Comments Other Brother 2 Heart transplan t after [place]; Other Father complications a fter stroke; Cause [...] on file Legal Sex Male 8:20 AM ICU TECH Gender Identity Not on file Sexual Orientation Not on file Obstetrics History Last Filed Vital Signs Vital Sign Reading Time Taken Comments Blood Pressure 162/73 04/03/2024 7:48 AM ICU TECH Pulse 61 04/03/2024 7:48 AM ICU TECH Temperature 36.7 C (98 F) 04/03/2024 7:48 AM ICU TECH Respiratory Rate 18 04/03/2024 7:48 AM ICU TECH Oxygen Saturation 100% 04/03/2024 7:48 AM ICU TECH Inhaled Oxygen Concentration - - Weight 70.2 kg (154 lb 12.8 oz) 04/02/2024 6:00 AM ICU TECH Height 177.8 cm (5' 10) 04/01/2024 6:57 AM ICU TECH Body Mass Index 22.21 04/01/2024 6:57 AM ICU TECH Plan of Treatment Health Maintenance Due Date [...] 05/03/2017, 04/21 Medical Devices Implanted Type Area Biology Intern Device Identifier Shelf Expiration Date Model / Serial / Lot Biotronik Ra Lead [id number] Implanted:Sedrick Hand MD (Quantity not on file) Lead Heart Biotronik [id number] / [id number] / Biotronik Rv Lead [id number] Implanted:Sedrick Hand MD (Quantity not on file) Lead Heart Biotronik [id number] / [id number] / Biotronik Pm Edora 8 Dr-T-05/24/2022 Implanted:05/24 by Sedrick Pan MD (Quantity not on file) Pacemaker Chest Wall Biotronik [id number] / [id number] / Loop Recorder Left: Chest Wall Depuy Orthopaed[employer] Inc Delta Xtend Shoulder +9mm Spacer Humeral Sterile [id number] - [id number] Implanted:Qty: 1 on 09/07/2021 by Marcus Hernández MD at [facility] Right: Shoulder Depuy Orthopaed[employer] Inc [id number] 08/19/2025 [id number] / / [id number] Depuy [employer]ed[employer] Delta Xtend 4.5mm 36mm Lock Shoulder Glenoid Screw Bone Metaglene [id number] - [id number] Implanted:Qty: 1 on 09/07/2021 by Marcus Hernández MD at [facility] Right: Shoulder Depuy Orthopaed[employer] Inc [id number] 05/21/2026 [id number] / / [id number] Depuy Synthes [employer] Inc [id number] Metaglene 10mm Long Peg Fixation - [id number] Implanted:Qty: 1 on 09/07/2021 by Marcus Hernández MD at [facility] Right: Shoulder Depuy [employer] [id number] 03/21/2026 [id number] / / [id number] Depuy Orth[employer] Delta Xtend 4.5mm 30mm Lock Shoulder Glenoid Screw Bone Metaglene [id number] - [id number] Implanted:Qty: 1 on 09/07/2021 by Marcus Hernández MD at [facility] Right: Shoulder [employer] Orth[employer] Inc [id number] 05/21/2025 [id number] / / [id number] Depuy Orthopaed[employer] Inc [id number] Component Glenoid Delta Xtend +6mm Od42mm - [id number] Implanted:Qty: 1 on 09/07/2021 by Marcus Hernández MD at [facility] Right: Shoulder [employer] Orthopa[employer] Inc [id number] 07/20/2023 [id number] / / [id number] Dep[employer] Delta Xtend 4.5mm 42mm Lock Shoulder Glenoid Screw Bone Metaglene [id number] - [id number] Implanted:Qty: 1 on 09/07/2021 by Marcus Hernández MD at [facility] Right: Shoulder [employer] Orthopaed[employer] Inc [id number] 05/21/2026 [id number] / / [id number] Depuy Orthopaed[employer] Inc Global Unite 14mm 129mm Modular Shoulder Standard Stem Humeral [id number] - [id number] Implanted:Qty: 1 on 09/07/2021 by Marcus Hernández MD at [facility] Right: Shoulder Depuy Orthopaed[employer] Inc [id number] 06/21/2031 [id number] / / [id number] Depuy Orthopaed[employer] Inc [id number] Implant Shldr Xtend Modecc 145epi Por Sz1 Rt - [id number] Implanted:Qty: 1 on 09/07/2021 by Marcus Hernández MD at [facility] Right: Shoulder Depuy Orthopaed[employer] Inc [id number] 06/21/2030 [id number] / / [id number] Depuy [employer]ed[employer] Delta Xtend 42mm Shoulder +3mm Standard Cup Humeral Polyethylene Latex Free [id number] - [id number] Implanted:Qty: 1 on 09/07/2021 by Marcus Hernández MD at [facility] Right: Shoulder [employer] Orthopaed[employer] Inc [id number] 03/21/2026 [id number] / / [id number] [employer]in[employer] System Closure Repair Femoral Artery Suture Mediated Perclose Prostyle 55408-96 - [id number] Implanted:Qty: 1 on 04/01/2024 by Nuris Thompson MD at [facility] [employer] 12/19/2025 [id number] / / [id number] Rin[employer] V[employer] System Closure Repair Femoral Artery Suture Mediated Perclose Prostyle 47751-84 - [id number] Implanted:Qty: 1 on 04/01/2024 by Nuris Thompson MD at [facility] [employer] 12/19/2025 [id number] / / [id number] Tovar Lifesciences Daly 3 Commander Tovar 26mm Transcatheter Ultra Low Profile [id number] - [id number] - [id number] Implanted:Qty: 1 on 04/01/2024 by Nuris Thompson MD at [facility] [employer] 10/25/2026 [id number] / [id number] / Booktrope Angio-Seal Vip 6fr Closere Device [id number] - [id number] Implanted:Qty: 1 on 04/01/20[id number] / / Insurance MEDICARE [facility] MEDICARE [facility] AET MEDICARE MEDICARE [facility] AETNA MEDICARE Advance Directives For more information, please contact: [phone] * Full Code (Latest Code Status on File) Date Activated Date Inactivated Comments 09/07/2021 4:41 PM 09/08/2021 3:23 PM Care Teams Electronics Worker Relationship Specialty Start Date End Date Mikey Olivera MD [address] [place] [address] PCP - General 08/19/16 Nuris Thompson MD [address] [place] [address] Consulting Physician Cardiovascular Disease 04/02/24 [place] [address] [facility] [address] [place] [address] Consulting Physician Urology 04/03/24
--- OUTSIDE RECORDS SUMMARY | 2025-02-11 21:10 | XMS_ITS | Encounter Summary ---
Author Organization [facility] Healthcare Address [address] [place] [address] Care Team Providers Care Upholsterer Helper Name Role Phone Mikey Olivera MD Primary Care Provide r Nuris Thompson MD Unavailable [phone] Ramos Fong MD Unavailable [phone] Encounter Details Date Type Department Care Team (Late st Contact Info) Description 09/02/[address] 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
--- OUTSIDE RECORDS SUMMARY | 2025-02-11 21:10 | XMS_ITS | Encounter Summary ---
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
--- OUTSIDE RECORDS SUMMARY | 2025-02-11 21:10 | XMS_ITS | Encounter Summary ---
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
--- OUTSIDE RECORDS SUMMARY | 2025-02-11 21:10 | XMS_ITS | Clinical Summary ---
Author Organization [facility] Address [address] [place] [address] Care Team Providers Care Poultry Farm Manager Name Role Phone Mikey Olivera MD Primary Care Provider [phone] Source Comments [facility],non-owned Affiliates and Associated Physician Practices is amultiple site organization consisting of ambulatory clinics and hospital sitesin [place], [place], [place] and [place]. This disclosure is being madepursuant to the Care Everywhere program and may not contain all information available regarding this patient. Last updated 18.[facility] Allergies No known active allergies Medications * [...] this topic Medical Devices Implanted Type Area Early Childhood Coordinator Device Identifier Shelf Expiration Date Model / Serial / Lot Wedge Aug [id number] Biosync Puja Rodriguez Implanted:Qty: 1 on 12/31/2021 by Angus Millan DPM at [facility] Right: Foot [employer]rex Inc 08/24/2023 [id number] Wedge Dec 20mmx6.5mm Biosync Puja Cttn Implanted:Qty: 1 on 12/31/2021 by Angus Millan DPM at [facility] Right: Foot [employer] 07/20/2023 [id number] Insurance MEDICARE [facility] * Guarantor: TRISTAN CRAVEN Account Type Relation to Patient Date of Phone Billing Address Personal/Family [address] [place] [address] MEDICARE ANTHEM * Guarantor: TRISTAN CRAVEN Account Type Relation to Patient Date of Phone Billing Address Personal/Family [address] [place] [address] MEDICARE ANTHEM * Guarantor: TRISTAN CRAVEN Account Type Relation to Patient Date of Phone Billing Address Personal/Family [address] [place] [address] MEDICARE Member Subscriber Plan / Payer (Ef fective for All Dates) Name:Bruce Tristan Member ID:[id number] Relation to Subscriber:Self Name:Tristan Craven Subscriber ID:[id number] Payer ID:Not on file Group ID:Not on file Type:Medicare Address: [place] [address] ANTHEM Care Teams Poultry Farm Manager Relationship Specialty Start Date End Date Mikey Olivera MD [address] [address] PCP - General Internal Medicine 12/31/21
--- OUTSIDE RECORDS SUMMARY | 2025-02-11 21:10 | XMS_ITS | Encounter Summary ---
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
[2025-02-11] MEDS: cefTRIAXone 1 GM in SODIUM CHLORIDE 0.9% IV 50 ML 100 ML IVPB (21:38)
[2025-02-11] MEDS: MORPHINE SULFATE (*CRX) 4 MG/ML INJ IV PUSH (21:38)
[2025-02-11 21:50] LABS: Add Urine Microscopic? YES; Appearance Urine Turbid (Clear); Glucose Urine UA Negative (Negative); Leukocyte Esterase Ur 3+ LEU/UL (Negative); Nitrate Urine Negative (Negative); Non Pathogenic Casts 0-2; Specific Grav Ur > 1.045 (1.001-1.035)
--- NOTE | 2025-02-11 22:48 | PC.NURSE ---
RN walked into pt room and saw pt vomiting in room trashcan. RN notified MD. Md verbally states to give pt 4mg of zofran. RN override in pixis and gave pt 4mg of zofran via IV.
[2025-02-11] MEDS: ONDANSETRON INJ 4 MG/2 ML VIAL (22:49)
[2025-02-11 23:28] VITALS: BP 151/77; PULSE 75; RESP 18; O2SAT 97
== END 2025-02-11 23:29 | disposition home or self-care (01) ==
PROVIDERS: Nurse Practitioner Family; Emergency Provider Student in an Organized Health Care Education/Training Program; PCP Emergency Medicine
DX: N30.00 Acute cystitis without hematuria (principal); N40.0 Benign prostatic hyperplasia without lower urinary tract symptoms; I48.0 Paroxysmal atrial fibrillation; I10 Essential (primary) hypertension; I35.0 Nonrheumatic aortic (valve) stenosis; I48.92 Unspecified atrial flutter; E78.5 Hyperlipidemia, unspecified; E55.9 Vitamin D deficiency, unspecified; M19.042 Primary osteoarthritis, left hand; M19.041 Primary osteoarthritis, right hand; K21.9 Gastro-esophageal reflux disease without esophagitis; Z96.89 Presence of other specified functional implants; Z87.891 Personal history of nicotine dependence; Z79.01 Long term (current) use of anticoagulants; Z79.82 Long term (current) use of aspirin; Z79.899 Other long term (current) drug therapy; M47.816 Spondylosis without myelopathy or radiculopathy, lumbar region
CPT/HCPCS: 36415; 72132; 74177; 80053; 81001; 85025; 87077; 87086; 87186; 96361; 96365; 96375; 99284; J0696; J2270; J2405; J7030; Q9967

== ENCOUNTER 2025-03-03 10:33 | Outpatient (CLI) | payer MEDICARE, SELFPAY ==
[2025-03-03 11:28] LABS: INR 3.1; Prothrombin Time 30.3 Seconds (11.1-14.7)
--- OUTSIDE RECORDS SUMMARY | 2025-03-03 11:45 | XMS_ITS | Clinical Summary ---
Author Organization [facility] Address [address] [place] [address] Care Team Providers Care Chef & Owner Name Role Phone Mikey Olivera MD Primary Care Provider [phone] Encounters Date Type Department Care Team Description 02/05/2025 9:40 AM CDT - 02/05/2025 11:59 PM CDT Hospital Encounter [facility] [address] [place] [address] Mikey Olivera MD Discharge Disposition: Home or Self Care (Routine Discharge) 02/05/2025 Orders Only [facility] [address] [place] [id number] Mikey Olivera MD 02/05/2025 Travel from Last 3 Months Social History Tobacco Use Types Packs/Day Years Used Date Smoking Tobacco: Never Assessed Sex and Gender Information Value Date Recorded Sex Assigned at Not on file Legal Sex Male 7:54 AM CDT Gender Identity Not on file Sexual Orientation Not on file Plan of Treatment Health Maintenance Due Date Last Done Comments DTaP, Tdap and Td Vaccines (1 - Tdap) 1961 Zoster Vaccines (1 of 2) 1992 Annual Medicare Wellness Visit 09/26/2007 RSV Immunization or 60+ Years (1 - 1-dose 75+ series) 2017 COVID-19 Vaccine ( - 2024- season) 2025 03/06/2023, 04/18/2022, 08/27/2021, Additional history exists Influenza Adult (#1) 2025 02/04/2020, 03/27/2019, 03/16/2018, Additional history exists Pneumococcal Vaccine: 50+ Years Completed 05/03/2017, 05/05/2015 Meningococcal B Vaccine Aged Out No l onger eligible based on patient's age to complete this topic Meningococcal Vaccine Aged Out No jenni sofie eligible based on patient's age to complete this topic RSV Immunizations Under 20 Months Aged Out No longer eligible based on patient's age to complete this topic Medical Devices Implanted Type Area Family Court Counsellor Device Identifier Shelf Expiration Date Model / Serial / Lot Ra Lead Implant-05/24/19 Implanted:Qty: 1 on 05/24/2022 by Sedrick Pan MD Lead Implant Right: Atrium CiashopRONIK [id number] [employer] S 45 / [id number] / Rv Lead Implant-05/24/19 Implanted:Qty: 1 on 05/24/2022 by Sedrick Pan MD Lead Implant Right: Ventricle BIOTRONIK [id number] SOLAlexis Bittar S 53 / [id number] / Pacemaker-2022 Implanted:Qty: 1 on 05/24/2022 by Sedrick Pan MD Pacemaker Chest BIOTRONIK EDORA 8 COERY [id number] / [id number] / Description:MR Conditional u nder following conditions: Static magnetic field of 1.5 T or 3 T, max spatial gradient field of 3000 gauss/cm or less, Max slew rate 200 T/m/s, Max whole body JANE of 2 w/kg or less, Head JANE 3.2 W/kg or less Procedures Procedure Name Priority Date/Time Associated Diagnosis Comments COMPREHENSIVE METABOLIC PANEL Routine 02/05/2025 9:55 AM CDT Vitamin D deficiency Hyperlipidemia Essential (primary) hypertension VITAMIN D, 25 OH Routine 02/05/2025 9:55 AM CDT Vitamin D deficiency Hyperlipidemia Essential (primary) hypertension CBC W/DIFF AUTOMATED Routine 02/05/2025 9:55 AM CDT Vitamin D deficiency Hyperlipidemia Essential (primary) hypertension LIPID PANEL Routine 02/05/2025 9:55 AM CDT Vitamin D deficiency Hyperlipidemia Essential (primary) hypertension from Last 3 Months Results * (ABNORMAL) COMPREHENSIVE METABOLIC PANEL (02/05/2025 9:55 AM CDT) [facility] GLUCOSE 98 70 - 99 MG/DL 02/05/2025 10:27 AM CDT [facility] BUN 19(H) 7 - 18 MG/DL 02/05/2025 10:27 AM CDT [facility] CREATININE S/P/B 1.09 0.50 - 1.20 MG/DL 02/05/2025 10:27 AM CDT [facility] SODIUM S/P/B 135(L) 136 - 145 MMOL/L 02/05/2025 10:27 AM CDT [facility] POTASSIUM S/P/B 4.6 3.5 - 5.1 MMOL/L 02/05/2025 10:27 AM CDT [facility] CHLORIDE S/P/B 100 100 - 108 MMOL/L 02/05/2025 10:27 AM CDT [facility] CO2 27.4 21.0 - 32.0 MMOL/L 02/05/2025 10:27 AM CDT [facility] CALCIUM S/P/B 9.2 8.5 - 10.1 MG/DL 02/05/2025 10:27 AM CDT [facility] BILIRUBIN TOTAL S/P/B 0.7 0.2 - 1.2 MG/DL 02/05/2025 10:27 AM CDT [facility] Comment: THIS ASSAY IS NOT RECOMMENDED FOR PATIENTS UNDERGOING TREATMENT WITH ELTROMBOPAG DUE TO THE POTENTIAL FOR FALSELY ELEVATED RESULTS. TOTAL PROTEIN S/P/B 7.8 6.4 - 8.2 G/DL 02/05/2025 10:27 AM CDT [facility] ALBUMIN S/P/B 3.6 3.4 - 5.0 G/DL 02/05/2025 10:27 AM CDT [facility] AST 26 15 - 37 U/L 02/05/2025 10:27 AM CDT [facility] ALT 31 16 - 60 U/L 02/05/2025 10:27 AM CDT [facility] ALKALINE PHOSPHATASE S/P/B 108 50 - 136 U/L 02/05/2025 10:27 AM CDT [facility] ANION GAP 7.6 5.0 - 15.0 MMOL/L 02/05/2025 10:27 AM CDT [facility] BUN CREATININE RATIO 17.4 6 - 26 02/05/2025 10:27 AM CDT [facility] A/G RATIO 0.9(L) 1.0 - 2.5 RATIO 02/05/2025 10:27 AM CDT [facility] GFR ESTIMATE 68(L) >90 ML/MIN/1.7 3 M2 02/05/2025 10:27 AM CDT [facility] Comment: NOTE: eGFR is not calculated for patients <18 years of age. This is an estimated GFR calculation using the new CKD EPI creatinine equation without race and so does not require a correction factor for race. This estimated GFR should not be used for calculating drug doses. 02/05/2025 9:55 AM CDT us Mikey Olivera MD LABORATORY Final Result [facility] [address] [facility] [place] [address], * (ABNORMAL) LIPID PANEL (02/05/2025 9:55 AM CDT) [facility] Signature CHOLESTEROL 111 <200 MG/DL 02/05/2025 2:51 PM CDT [facility] TRIGLYCERIDES 227(H) <150 MG/DL 02/05/2025 2:51 PM CDT [facility] HDL 37(L) >40.0 MG/DL 02/05/2025 2:51 PM CDT [facility] LDL (CALCULATED) 29 <100 MG/DL 02/05/2025 2:51 PM CDT [facility] Comment:CALCULATED USING THE FRIEDEWALD EQUATION NON HDL CHOLESTEROL 74 <130 MG/DL 02/05/2025 2:51 PM CDT [facility] CHOL/HDL RATIO 3.0 0.0 - 4.5 02/05/2025 2:51 PM CDT [facility] VLDL CALCULATION 45 5 - 55 MG/DL 02/05/2025 2:51 PM CDT [facility] LIPID INTERPRETATION 02/05/2025 2:51 PM CDT [facility] Comment: NIH CONCENSUS REPORT RECOMMENDATIONS: ADULT CHILD LOW RISK: CHOLESTEROL <200 <170 TRIGLYCERIDE <150 --- HDL >=60 --- LDL <100 <110 BORDERLINE: CHOLESTEROL 200-239 170-199 TRIGLYCERIDE 150-199 --- HDL 40-59 --- LDL 100-159 110-129 HIGH RISK: CHOLESTEROL >=240 >=200 TRIGLYCERIDE >=200 --- HDL <40 --- LDL >=160 >=130 02/05/2025 9:55 AM CDT Mikey Olivera MD LABORATORY Final Result [facility] [address] [place] [address], [place] [phone] * (ABNORMAL) CBC W/DIFF AUTOMATED (02/05/2025 9:55 AM CDT) WBC 12.58(H) 4.50 - 11.00 x10'3/uL 02/05/2025 10:07 AM CDT [facility] RBC 4.56 4.50 - 5.90 x10'6/uL 02/05/2025 10:07 AM CDT [facility] HGB 13.9(L) 14.0 - 18.0 G/DL 02/05/2025 10:07 AM CDT [facility] HCT 42.4(L) 43.0 - 54.0 % 02/05/2025 10:07 AM CDT [facility] MCV 93.0 80.0 - 100.0 FL 02/05/2025 10:07 AM CDT [facility] MCH 30.5 26.0 - 34.0 PG 02/05/2025 10:07 AM CDT [facility] MCHC 32.8 31.0 - 37.0 G/DL 02/05/2025 10:07 AM CDT [facility] RDW 13.3 11.6 - 14.8 % 02/05/2025 10:07 AM CDT [facility] PLT 317 130 - 400 x10'3/uL 02/05/2025 10:07 AM CDT [facility] MPV 8.8 7.0 - 12.0 FL 02/05/2025 10:07 AM CDT [facility] CBC COMMENT AUTOMATED RBC MORPHOLOGY AND PLATELET EVALUATION NORMAL 02/05/2025 10:07 AM CDT [facility] NEUTROPHILS % 69.5 40.0 - 74.0 % 02/05/2025 10:07 AM CDT [facility] LYMPHOCYTES % 18.0 14.0 - 46.0 % 02/05/2025 10:07 AM CDT [facility] MONOCYTES % 9.9 4.0 - 13.0 % 02/05/2025 10:07 AM CDT [facility] EOSINOPHILS 1.7 0.0 - 7.0 % 02/05/2025 10:07 AM CDT [facility] BASOPHILS 0.5 0.0 - 3.0 % 02/05/2025 10:07 AM CDT [facility] IMMATURE GRANS % 0.4 0.0 - 0.43 % 02/05/2025 10:07 AM CDT [facility] NRBC % 0.0 % 02/05/2025 10:07 AM CDT [facility] ABS. NEUTROPHILS TOTAL 8.73(H) 1.69 - 7.81 x10'3/uL 02/05/2025 10:07 AM CDT [facility] ABS. LYMPHOCYTES 2.27 0.21 - 5.42 x10'3/uL 02/05/2025 10:07 AM CDT [facility] ABS. MONOCYTES 1.25 0.04 - 1.37 x10'3/uL 02/05/2025 10:07 AM CDT [facility] ABS. EOSINOPHILS 0.22 0.00 - 0.68 x10'3/uL 02/05/2025 10:07 AM CDT [facility] ABS. BASOPHILS 0.06 0.00 - 0.08 x10'3/uL 02/05/2025 10:07 AM CDT [facility] ABS. IMMATURE GRANULOCYTES 0.05 0.00 - 0.06 x10'3/uL 02/05/2025 10:07 AM CDT [facility] ABS. NUCLEATED RBC'S 0.00 0.00 - 0.01 x10'3/uL 02/05/2025 10:07 AM CDT [facility] 02/05/2025 9:55 AM CDT Mikey Olivera MD LABORATORY Final Result Performing Organization Address [facility] Co de Phone Number [address] [place], [place] [address], * VITAMIN D, 25 OH (02/05/2025 9:55 AM CDT) Pathologist [facility] VITAMIN D 25 HYDROXY S/P/B 53 30 - 100 NG/ML 02/05/2025 4:21 PM CDT [facility] Comment: INTERPRETATION DEFICIENT <20 INSUFFICIENT 20-29 SUFFICIENT 30-100 02/05/2025 9:55 AM CDT Mikey Olivera MD LABORATORY Final Result Performing Organization Address [facility] Co de Phone Number [facility] [address] [place] [address], [place] [phone] from Last 3 Months Insurance [employer] MEDICARE Care Teams Chef & Owner Relationship Specialty Start Date End Date Mikey Olivera MD [address] [place] [address] PCP - General INTERNAL MEDICINE 08/06/21
--- OUTSIDE RECORDS SUMMARY | 2025-03-03 11:45 | XMS_ITS | Clinical Summary ---
Author Organization [facility] [place] [address] Address [address] [place] [address] Care Team Providers Care Doctor Of Audiology Name Role Phone Mikey Olivera MD Primary Care Provide r Nuris Thompson MD Unavailable [phone] Ramos Fong MD Unavailable [phone] Allergies Active Allergy Reactions Criticality Noted Date [...] (08/16/2021): Added automatically from request for surgery [id number] Status post placement of implantable loop record er 10/22/2019 Overview (10/22/2019): SidestageroniCRE Secure-Biomonitor III-Imp Loop Recorder. Dx; PAF, Presynope, Bradycardia. DOI 10/22/2019-[facility]. Sidestageronik remote home monitoring. 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 of ant icoagulant therapy 10/29/2015 [...] (gastroesophageal reflux disease) H/O: GI bleed 09/2023 [facility] History of transfusion Cataract Delirium 04/03/2024 Family History Medical History Relation Name Comments Other Brother 2 Heart transplan t after [place]; Other Father complications a fter stroke; Cause [...] on file 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 Gender Identity Not on file Sexual Orientation Not on file Obstetrics History Last Filed Vital Signs Vital Sign Reading Time Taken Comments Blood Pressure 162/73 04/03/2024 7:48 AM FLOOR TILING PROFESSIONAL Pulse 61 04/03/2024 7:48 AM FLOOR TILING PROFESSIONAL Temperature 36.7 C (98 F) 04/03/2024 7:48 AM FLOOR TILING PROFESSIONAL Respiratory Rate 18 04/03/2024 7:48 AM FLOOR TILING PROFESSIONAL Oxygen Saturation 100% 04/03/2024 7:48 AM FLOOR TILING PROFESSIONAL Inhaled Oxygen Concentration - - Weight 70.2 kg (154 lb 12.8 oz) 04/02/2024 6:00 AM FLOOR TILING PROFESSIONAL Height 177.8 cm (5' 10) 04/01/2024 6:57 AM FLOOR TILING PROFESSIONAL Body Mass Index 22.21 04/01/2024 6:57 AM FLOOR TILING PROFESSIONAL Plan of Treatment Health Maintenance Due Date [...] 05/03/2017, 04/21 Medical Devices Implanted Type Area Tester Semicon[employer] Packages Device Identifier Shelf Expiration Date Model / Serial / Lot Biotronik Ra Lead [id number] Implanted:Sedrick Hand MD (Quantity not on file) Lead Heart Biotronik [id number] / [id number] / Biotronik Rv Lead [id number] Implanted:Sedrick Hand MD (Quantity not on file) Lead Heart Biotronik [id number] / [id number] / Biotronik Pm Edora 8 Dr-T-05/24/2022 Implanted:05/24 by Sedrick Pan MD (Quantity not on file) Pacemaker Chest Wall Biotronik [id number] / [id number] / Loop Recorder Left: Chest Wall Depuy Orthopaedics Inc Delta Xtend Shoulder +9mm Spacer Humeral Sterile [id number] - [id number] Implanted:Qty: 1 on 09/07/2021 by Marcus Hernández MD at [facility] Right: Shoulder Depuy Orthopaed[employer] Inc [id number] 08/19/2025 [id number] / / [id number] Depuy Orthopaed[employer] Inc Delta Xtend 4.5mm 36mm Lock Shoulder Glenoid Screw Bone Metaglene [id number] - [id number] Implanted:Qty: 1 on 09/07/2021 by Marcus Hernández MD at [facility] Right: Shoulder Depuy Orthopaedics Inc [id number] 05/21/2026 [id number] / / [id number] Depuy Synthes Sales Inc [id number] Metaglene 10mm Long Peg Fixation - [id number] Implanted:Qty: 1 on 09/07/2021 by Marcus Hernández MD at [facility] Right: Shoulder Depuy Synthes Sales Inc [id number] 03/21/2026 [id number] / / [id number] Depuy Orthopaedics Inc Delta Xtend 4.5mm 30mm Lock Shoulder Glenoid Screw Bone Metaglene [id number] - [id number] Implanted:Qty: 1 on 09/07/2021 by Marcus Hernández MD at [facility] Right: Shoulder Depuy Orthopaedics Inc [id number] 05/21/2025 [id number] / / [id number] Depuy Orthopaedics Inc [id number] Component Glenoid Delta Xtend +6mm Od42mm - [id number] Implanted:Qty: 1 on 09/07/2021 by Marcus Hernández MD at [facility] Right: Shoulder Depuy Orthopaed[employer] Inc [id number] 07/20/2023 [id number] / / [id number] Depuy Orthopaed[employer] Inc Delta Xtend 4.5mm 42mm Lock Shoulder Glenoid Screw Bone Metaglene [id number] - [id number] Implanted:Qty: 1 on 09/07/2021 by Marcus Hernández MD at [facility] Right: Shoulder Depuy Orthopaedics Inc [id number] 05/21/2026 [id number] / / [id number] Depuy Orthopaedics Inc Global Unite 14mm 129mm Modular Shoulder Standard Stem Humeral [id number] - [id number] Implanted:Qty: 1 on 09/07/2021 by Marcus Hernández MD at [facility] Right: Shoulder Depuy Orthopaedics Inc [id number] 06/21/2031 [id number] / / [id number] Depuy Orthopaedics Inc [id number] Implant Shldr Xtend Modecc 145epi Por Sz1 Rt - [id number] Implanted:Qty: 1 on 09/07/2021 by Marcus Hernández MD at [facility] Right: Shoulder Depuy Orthopaedics Inc [id number] 06/21/2030 [id number] / / [id number] Depuy Orthopaed[employer] Inc Delta Xtend 42mm Shoulder +3mm Standard Cup Humeral Polyethylene Latex Free [id number] - [id number] Implanted:Qty: 1 on 09/07/2021 by Marcus Hernández MD at [facility] Right: Shoulder Depuy Orthopaedics Inc [id number] 03/21/2026 [id number] / / [id number] Rincon Vascular System Closure Repair Femoral Artery Suture Mediated Perclose Prostyle 34341-56 - [id number] Implanted:Qty: 1 on 04/01/2024 by Nuris Thompson MD at [facility] [employer] 12/19/2025 00412-50 / / [id number] Rincon Vascular System Closure Repair Femoral Artery Suture Mediated Perclose Prostyle 25725-95 - [id number] Implanted:Qty: 1 on 04/01/2024 by Nuris Thompson MD at [facility] [employer] 12/19/2025 07987-17 / / [id number] Tovar Lifesciences Daly 3 Commander Tovar 26mm Transcatheter Ultra Low Profile [id number] - [id number] - [id number] Implanted:Qty: 1 on 04/01/2024 by Nuris Thompson MD at [facility] [employer] Lif[employer]iences 10/25/2026 [id number] / [id number] / Prisync Angio-Seal Vip 6fr Closere Device [id number] - [id number] Implanted:Qty: 1 on 04/01/20[id number] / / Insurance [facility]ICARE [facility]IC[facility] AET MEDICARE [facility]ICARE [facility] AETNA MEDICARE Advance Directives For more information, please contact: [phone] * Full Code (Latest Code Status on File) Date Activated Date Inactivated Comments 09/07/2021 4:41 PM 09/08/2021 3:23 PM Care Teams Doctor Of Audiology Relationship Specialty Start Date End Date Mikey Olivera MD [address] [place] [address] PCP - General 08/19/16 Nuris Thompson MD [address] [place] [address] Consulting Physician Cardiovascular Disease 04/02/24 [place] [address] [facility] [address] [place] [address] Consulting Physician Urology 04/03/24
--- OUTSIDE RECORDS SUMMARY | 2025-03-03 11:45 | XMS_ITS | Clinical Summary ---
Author Organization [facility] Address [address] [place] [address] Care Team Providers Care Director Of Anesthesia Services Name Role Phone Mikey Olivera MD Primary Care Provider [phone] Source Comments [facility],non-owned Affiliates and Associated Physician Practices is amultiple site organization consisting of ambulatory clinics and hospital sitesin [place], [place], [place] and [place]. This disclosure is being madepursuant to the Care Everywhere program and may not contain all information available regarding this patient. Last updated 18.[facility] Allergies No known active allergies Medications * [...] this topic Medical Devices Implanted Type Area Iron Cutter Device Identifier Shelf Expiration Date Model / Serial / Lot Wedge Aug [id number] Biosync Puja Rodriguez Implanted:Qty: 1 on 12/31/2021 by Angus Millan DPM at [facility] Right: Foot Arthrex Inc 08/24/2023 [id number]-20 [id number] Wedge Dec 20mmx6.5mm Biosync Puja Cttn Implanted:Qty: 1 on 12/31/2021 by Angus Millan DPM at [facility] Right: Foot Ar[employer] Inc 07/20/2023 [id number]-20 60 Insurance MEDICARE [facility] Address: [facility] [address] [place] [address] * Guarantor: TRISTAN CRAVEN Account Type Relation to Patient Date of Phone Billing Address Personal/Family [address] [place] [address] MEDICARE ANTHEM * Guarantor: TRISTAN CRAVEN Account Type Relation to Patient Date of Phone Billing Address Personal/Family [address] [place] [address] MEDICARE ANTHEM * Guarantor: TRISTAN CRAVEN Account Type Relation to Patient Date of Phone Billing Address Personal/Family [address] [place] [address] MEDICARE Member Subscriber Plan / Payer (Ef fective for All Dates) Name:Bruce Tristan Member ID:[id number] Relation to Subscriber:Self Name:Tristan Craven Subscriber ID:[id number] Payer ID:Not on file Group ID:Not on file Type:Medicare Address: [place] [address] ANTHEM Care Teams Director Of Anesthesia Services Relationship Specialty Start Date End Date Mikey Olivera MD [address] [place] [id number] PCP - General Internal Medicine 12/31/21
== END 2025-03-03 10:34 | disposition home or self-care (01) ==
LOC: ANHLAB 10:36
PROVIDERS: PCP Emergency Medicine; Visit Provider Internal Medicine Cardiovascular Disease
DX: Z13.6 Encounter for screening for cardiovascular disorders (principal); R53.83 Other fatigue; Z86.79 Personal history of other diseases of the circulatory system; I35.0 Nonrheumatic aortic (valve) stenosis; R09.89 Other specified symptoms and signs involving the circulatory and respiratory systems; Z95.0 Presence of cardiac pacemaker; R42 Dizziness and giddiness; I45.9 Conduction disorder, unspecified; I49.3 Ventricular premature depolarization; I48.91 Unspecified atrial fibrillation; I48.92 Unspecified atrial flutter; R00.1 Bradycardia, unspecified; Z82.3 Family history of stroke; I10 Essential (primary) hypertension; I47.10 Supraventricular tachycardia, unspecified
CPT/HCPCS: 36415; 85610

== ENCOUNTER 2025-03-19 11:20 | Outpatient (CLI) | payer MEDICARE, SELFPAY ==
[2025-03-19 12:02] LABS: INR 3.1; Prothrombin Time 30.5 Seconds (11.1-14.7)
--- OUTSIDE RECORDS SUMMARY | 2025-03-19 12:58 | XMS_ITS | Clinical Summary ---
Author Organization [facility] Address [address] [place] [address] Care Team Providers Care Composite Worker Name Role Phone Mikey Olivera MD Primary Care Provider [phone] Source Comments [facility],non-owned Affiliates and Associated Physician Practices is amultiple site organization consisting of ambulatory clinics and hospital sitesin [place], [place], [place] and [place]. This disclosure is being madepursuant to the Care Everywhere program and may not contain all information available regarding this patient. Last updated 18.[facility] Allergies No known active allergies Medications * [...] this topic Medical Devices Implanted Type Area Community Living Specialist Device Identifier Shelf Expiration Date Model / Serial / Lot Wedge Aug [id number] Biosync Puja Rodriguez Implanted:Qty: 1 on 12/31/2021 by Angus Millan DPM at [facility] Right: Foot Arthrex Inc 08/24/2023 [id number]-20 [id number] Wedge Dec 20mmx6.5mm Biosync Puja Cttn Implanted:Qty: 1 on 12/31/2021 by Angus Millan DPM at [facility] Right: Foot Ar[employer] Inc 07/20/2023 [id number]-20 60 Insurance MEDICARE [facility] * Guarantor: TRISTAN CRAVEN Account Type Relation to Patient Date of Phone Billing Address Personal/Family [address] [place] [address] MEDICARE ANTHEM * Guarantor: TRISTAN CRAVEN Account Type Relation to Patient Date of Phone Billing Address Personal/Family [address] [place] [address] MEDICARE ANTHEM * Guarantor: TRISTAN CRAVEN Account Type Relation to Patient Date of Phone Billing Address Personal/Family [address] [place] [address] MEDICARE Member Subscriber Plan / Payer (Ef fective for All Dates) Name:Bruce Tristan Member ID:[id number] Relation to Subscriber:Self Name:Tristan Craven Subscriber ID:[id number] Payer ID:Not on file Group ID:Not on file Type:Medicare Address: [place] [phone] ANTHEM Care Teams Composite Worker Relationship Specialty Start Date End Date Mikey Olivera MD [address] [place] [id number] PCP - General Internal Medicine 12/31/21
--- OUTSIDE RECORDS SUMMARY | 2025-03-19 12:58 | XMS_ITS | Clinical Summary ---
Author Organization [facility] [place] [address] Address [address] [place] [address] Care Team Providers Care Mental Telepathist Name Role Phone Mikey Olivera MD Primary Care Provide r Nuris Thompson MD Unavailable [phone] Ramos Fong MD Unavailable [phone] Allergies Active Allergy Reactions Criticality Noted Date [...] (08/16/2021): Added automatically from request for surgery [id number] Status post placement of implantable loop record er 10/22/2019 Overview (10/22/2019): [employer]-Biomonitor III-Imp Loop Recorder. Dx; PAF, Presynope, Bradycardia. DOI 10/22/2019-[facility], [place]. Pharnextronik remote home monitoring. 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 10/29/2015 [...] (gastroesophageal reflux disease) H/O: GI bleed 09/2023 [facility] History of transfusion Cataract Delirium 04/03/2024 Family History Medical History Relation Name Comments Other Brother 2 Heart transplan t after [place]; Other Father complications a fter stroke; Cause [...] on file Legal Sex Male 8:20 AM [employer] Gender Identity Not on file Sexual Orientation Not on file Obstetrics History Last Filed Vital Signs Vital Sign Reading Time Taken Comments Blood Pressure 162/73 04/03/2024 7:48 AM BUFFET SERVER Pulse 61 04/03/2024 7:48 AM BUFFET SERVER Temperature 36.7 C (98 F) 04/03/2024 7:48 AM BUFFET SERVER Respiratory Rate 18 04/03/2024 7:48 AM BUFFET SERVER Oxygen Saturation 100% 04/03/2024 7:48 AM BUFFET SERVER Inhaled Oxygen Concentration - - Weight 70.2 kg (154 lb 12.8 oz) 04/02/2024 6:00 AM BUFFET SERVER Height 177.8 cm (5' 10) 04/01/2024 6:57 AM BUFFET SERVER Body Mass Index 22.21 04/01/2024 6:57 AM BUFFET SERVER Plan of Treatment Health Maintenance Due Date [...] 05/03/2017, 04/21 Medical Devices Implanted Type Area Laundry Washer Device Identifier Shelf Expiration Date Model / Serial / Lot Biotronik Ra Lead [id number] Implanted:Sedirck Hand MD (Quantity not on file) Lead Heart Biotronik [id number] / [id number] / Biotronik Rv Lead [id number] Implanted:Sedrick Hand MD (Quantity not on file) Lead Heart Biotronik [id number] / [id number] / Biotronik Pm Edora 8 Dr-T-05/24/2022 Implanted:05/24 by Sedrick Pan MD (Quantity not on file) Pacemaker Chest Wall Biotronik [id number] / [id number] / Loop Recorder Left: Chest Wall Dep[employer] Delta Xtend Shoulder +9mm Spacer Humeral Sterile [id number] - [id number] Implanted:Qty: 1 on 09/07/2021 by Marcus Hernández MD at [facility] Right: Shoulder [employer] [id number] 08/19/2025 [id number] / / [id number] [employer] Delta Xtend 4.5mm 36mm Lock Shoulder Glenoid Screw Bone Metaglene [id number] - [id number] Implanted:Qty: 1 on 09/07/2021 by Marcus Hernández MD at [facility] Right: Shoulder [employer] [id number] 05/21/2026 [id number] / / [id number] Depuy [employer] [id number] Metaglene 10mm Long Peg Fixation - [id number] Implanted:Qty: 1 on 09/07/2021 by Marcus Hernández MD at [facility] Right: Shoulder [employer] [id number] 03/21/2026 [id number] / / [id number] [employer] Delta Xtend 4.5mm 30mm Lock Shoulder Glenoid Screw Bone Metaglene [id number] - [id number] Implanted:Qty: 1 on 09/07/2021 by Marcus Hernández MD at [facility] Right: Shoulder [employer] [id number] 05/21/2025 [id number] / / [id number] [employer] [id number] Component Glenoid Delta Xtend +6mm Od42mm - [id number] Implanted:Qty: 1 on 09/07/2021 by Marcus Hernández MD at [facility] Right: Shoulder [employer] [id number] 07/20/2023 [id number] / / [id number] [employer] Delta Xtend 4.5mm 42mm Lock Shoulder Glenoid Screw Bone Metaglene [id number] - [id number] Implanted:Qty: 1 on 09/07/2021 by Marcus Hernández MD at [facility] Right: Shoulder [employer] [id number] 05/21/2026 [id number] / / [id number] Dep[employer] Global Unite 14mm 129mm Modular Shoulder Standard Stem Humeral [id number] - [id number] Implanted:Qty: 1 on 09/07/2021 by Marcus Hernández MD at [facility] Right: Shoulder [employer] [id number] 06/21/2031 [id number] / / [id number] Dep[employer] [id number] Implant Shldr Xtend Modecc 145epi Por Sz1 Rt - [id number] Implanted:Qty: 1 on 09/07/2021 by Marcus Hernández MD at [facility] Right: Shoulder [employer] [id number] 06/21/2030 [id number] / / [id number] [employer] Delta Xtend 42mm Shoulder +3mm Standard Cup Humeral Polyethylene Latex Free [id number] - [id number] Implanted:Qty: 1 on 09/07/2021 by Marcus Hernández MD at [facility] Right: Shoulder [employer] [id number] 03/21/2026 [id number] / / [id number] [employer] System Closure Repair Femoral Artery Suture Mediated Perclose Prostyle 94208-78 - [id number] Implanted:Qty: 1 on 04/01/2024 by Nuris Thompson MD at [facility] [employer] 12/19/2025 85026-19 / / [id number] [employer] System Closure Repair Femoral Artery Suture Mediated Perclose Prostyle 13122-96 - [id number] Implanted:Qty: 1 on 04/01/2024 by Nuris Thompson MD at [facility] [employer] 12/19/2025 [id number] / / [id number] [employer] Daly 3 Commander Tovar 26mm Transcatheter Ultra Low Profile [id number] - [id number] - [id number] Implanted:Qty: 1 on 04/01/2024 by Nuris Thompson MD at [facility] [employer] 10/25/2026 [id number] / [id number] Angio-Seal Vip 6fr Closere Device [id number] - [id number] Implanted:Qty: 1 [facility] 04/01/[id number] / Insurance MEDICARE [facility] MEDICARE [facility] AET MEDICARE MEDICARE [facility] AETNA MEDICARE Advance Directives For more information, please contact: [phone] * Full Code (Latest Code Status on File) Date Activated Date Inactivated Comments 09/07/2021 4:41 PM 09/08/2021 3:23 PM Care Teams Mental Telepathist Relationship Specialty Start Date End Date Mikey Olivera MD [address] [place] [address] PCP - General 08/19/16 Nuris Thompson MD [address] [place] [address] Consulting Physician Cardiovascular Disease 04/02/24 [place] [address] [facility] [address] [place] [address] Consulting Physician Urology 04/03/24
== END 2025-03-19 11:21 | disposition home or self-care (01) ==
PROVIDERS: PCP Emergency Medicine; Visit Provider Internal Medicine Cardiovascular Disease
DX: I48.91 Unspecified atrial fibrillation (principal)
CPT/HCPCS: 36415; 85610